=== PATIENT | male | born 1945 | race Caucasian/White ===

== ENCOUNTER → 2016-07-15 | Day surgery (SDC) | payer OTHER ==
[~2016-07-15] VITALS: Ht 182.9 cm; Wt 92.5 kg
[~2016-07-15] MED LIST: ALLO100T PO; ASPI1TAB PO; ASPI81TA13 PO; ATEN100T PO; CIPR500S IV; GLUC1INJ2 SC; GLUC4CHW PO; HYDR25TAB PO; INSUH10VL SC; LEVO500T32 PO; LIDOCAINE 2% INJ 100 MG/5 ML SDV (FOR ANES.) As Ordered ONE; LISI-538 PO; LOSA25TA8 PO; LR 1,000 ML IV SCH; METF500T PO; MIDAZOLAM INJ 2 MG/2 ML VIAL (J2250) As Ordered ONE; MORP2SY IV; NORCO, ANEXSIA 5/325MG TABLET (HYDROcodone/ACETAMINOPHEN) PO PRN; ONDANSETRON 4MG/2ML VIAL (J2405) IV PRN; PERC5TAB6 PO; PROPOFOL 200 MG/20 ML VIAL As Ordered ONE; PROTPAK IV; PYRI200T5 PO; SIMV40TA2 PO; TYLE325T5 PO; VITMTA PO; ZOCO80TA PO; ZOFR4SOL IV; ZOSY1SOL5 IV; ZYLO300T4 PO; [UNRECOGNIZED DRUG - CODE] IV; [UNRECOGNIZED DRUG - OTHER] IV; ceFAZolin 2 GM/D5W 50 ML IV BAG (J0690) As Ordered ONE; fentaNYL 100 MCG/2 ML INJECTION (J3010) As Ordered ONE; fentaNYL 100 MCG/2 ML INJECTION (J3010) IV PRN
--- NOTE | 2016-07-15 10:04 | REP ---
KUB: Single view. HISTORY: Bilateral kidney stones. Comparison KUB study June 22, 2016. FINDINGS: Double pigtail ureteral stent is noted on the right. There are multiple phleboliths in the pelvis bilaterally. There are bilateral intrarenal lower pole calculi with two stones visible in the lower pole region on the left and one on the right. There are also two calculi adjacent to the stent in the region of the renal pelvis on the right. These are in slightly different position relative to the stent but otherwise unchanged. Bowel gas pattern is normal. Psoas margins are intact. IMPRESSION: Bilateral nephrolithiasis. Two calcifications adjacent to the proximal end of the stent on the right. Signed by Randall Vazquez MD 07/15/2016 10:24 A
--- NOTE | 2016-07-15 14:26 | RO ---
DATE OF PROCEDURE: 07/15/2016 PREPROCEDURE DIAGNOSIS: Kidney stones. POSTPROCEDURE DIAGNOSIS: Kidney stones. PROCEDURE: Bilateral extracorporeal shockwave lithotripsy, cystoscopy with removal of right ureteral stent. SURGEON: Dr. Ganesh Ng HOSPITALITY TEAM MEMBER: None. ANESTHESIA: Monitored anesthesia care (MAC). OPERATIVE INDICATIONS: This is a 70-year-old male who was brought to the operating room a little over a month ago for cystoscopy and right ureteroscopy with laser lithotripsy for an obstructing left ureteral stone. A stent was placed at that time. On his preoperative CAT scan, he also had bilateral nonobstructing kidney stones measuring up to about 5 mm in both kidneys. He was brought to the operating room today for shockwave lithotripsy of the stones and to remove the stent. DESCRIPTION OF PROCEDURE: The patient was brought to the operating room and MAC anesthesia was administered. Prophylactic antibiotics were infused. He was then placed in the supine position and was prepped and draped in the usual sterile fashion. The rigid cystoscope was inserted into the urethral meatus and advanced into the bladder. Once within the bladder, the previously placed stent was seen. The stent was then grasped and withdrawn from the right ureter and the bladder intact. After that point, the patient was then positioned for a left sided extracorporeal shockwave lithotripsy first. Fluoroscopy was utilized to monitor the stone position and fragmentation throughout the procedure. Of note, on this side, the patient had two lower pole kidney stones measuring around 5 mm in size. Shockwaves were then delivered to the kidney stones ungated. There were no arrhythmias. The stones did appear to fragment well. After 2500 shocks, the patient was then repositioned for a right sided extracorporeal shockwave lithotripsy. Once again, fluoroscopy was utilized to monitor stone position and fragmentation throughout the procedure. On this side, the patient had two kidney stones also about 5 mm in size within the upper to mid pole calyces. Shockwaves were then delivered to these stones ungated. There were no arrhythmias. The stones also appeared to fragment well on this side. After 2500 shocks, the procedure was concluded. The patient was then awakened from anesthesia and transported to the recovery room in stable condition. ESTIMATED BLOOD LOSS: 0 mL. COMPLICATIONS: None. SPECIMENS: None. PLAN: The patient will be brought back to be seen in the clinic in a few weeks with imaging prior to assess for residual stone burden. [facility] PSYCHIATRIC CENTERShreyas
[2016-07-15 15:22] VITALS: BP 150/70
== END | disposition home or self-care (01) ==
LOC: M SDC 07:14
PROVIDERS: ATTEND Urology
DX: N20.0 Calculus of kidney (principal); E11.9 Type 2 diabetes mellitus without complications; Z79.82 Long term (current) use of aspirin; M10.9 Gout, unspecified; Z87.891 Personal history of nicotine dependence; Z79.899 Other long term (current) drug therapy
CPT/HCPCS: 50590; 52310; 74000; J0690; J2250; J3010

== ENCOUNTER → 2016-08-06 | Outpatient (REF) | payer OTHER ==
[~2016-08-06] MED LIST changes: -LIDOCAINE 2% INJ 100 MG/5 ML SDV (FOR ANES.) As Ordered ONE; -LR 1,000 ML IV SCH; -MIDAZOLAM INJ 2 MG/2 ML VIAL (J2250) As Ordered ONE; -NORCO, ANEXSIA 5/325MG TABLET (HYDROcodone/ACETAMINOPHEN) PO PRN; -ONDANSETRON 4MG/2ML VIAL (J2405) IV PRN; -PROPOFOL 200 MG/20 ML VIAL As Ordered ONE; -ceFAZolin 2 GM/D5W 50 ML IV BAG (J0690) As Ordered ONE; -fentaNYL 100 MCG/2 ML INJECTION (J3010) As Ordered ONE; -fentaNYL 100 MCG/2 ML INJECTION (J3010) IV PRN
== END ==
LOC: M SMT 13:10
PROVIDERS: ATTEND Urology
DX: N20.0 Calculus of kidney (principal)

== ENCOUNTER → 2016-08-09 | Outpatient (CLI) | payer OTHER ==
--- NOTE | 2016-08-09 12:03 | REP ---
Clinical: Nephrolithiasis. Comparison: 07/15/2016. Technique: Single supine view of the abdomen and pelvis. Findings: Previously noted right ureteral stent has been removed. Further evaluation of the urinary tract system is significantly limited due to overlying bowel gas. However, small bilateral intrarenal calculi are suggested measuring up to approximately 4 mm. Calcifications in the pelvis remains stable and compatible with phleboliths. No bowel obstruction. Skeletal structures demonstrate osteopenia and degenerative changes. Impression: Limited examination cannot exclude nonobstructing intrarenal calculi. Signed by Deepak Stallworth MD 08/09/2016 11:55 A
== END ==
LOC: M SMT 10:29
PROVIDERS: ATTEND Urology
DX: R93.5 Abnormal findings on diagnostic imaging of other abdominal regions, including retroperitoneum (principal)

== ENCOUNTER → 2018-09-01 | Outpatient (REF) | payer OTHER ==
[~2018-09-01] MED LIST changes: -ASPI81TA13 PO; +ASPI81TA24 PO; -GLUC4CHW PO; +GLUC4CHW19 PO; +LEVO500T3 PO; -LEVO500T32 PO; +LOSA25TA14 PO; -LOSA25TA8 PO; -METF500T PO; +METF500T13 PO; +PERC5TAB12 PO; -PERC5TAB6 PO; +PYRI1TAB5 PO; -PYRI200T5 PO; -ZYLO300T4 PO; +ZYLO300T6 PO
[2018-09-01 13:10] LABS: APPEARANCE, URINE HAZY (CLEAR); BACTERIA, URINE AUTO 1+ (NEGATIVE); BILIRUBIN, URINE AUTO NEGATIVE (NEGATIVE); BLOOD, URINE BLOOD 3+ (NEGATIVE); CALCIUM OXALATE CRYSTALS SMALL; COLOR, URINE YELLOW (YELLOW); GLUCOSE, URINE (UA) AUTO NEGATIVE (NEGATIVE); KETONE, URINE AUTO NEGATIVE (NEGATIVE); LEUKOCYTE ESTERASE, URINE AUTO TRACE (NEGATIVE); MUCUS, URINE SMALL (NEGATIVE); NITRITE, URINE AUTO NEGATIVE (NEGATIVE); PROTEIN, URINE AUTO NEGATIVE (NEGATIVE); RBC, URINE AUTO TNTC /HPF (0-3); SQUAMOUS EPITHELIAL CELL UR AU 0 /HPF (0-6); WBC, URINE AUTO 7 /HPF (0-3)
== END ==
LOC: M LAB REF 12:16
PROVIDERS: ATTEND Nurse Practitioner Family
DX: R31.9 Hematuria, unspecified (principal)

== ENCOUNTER → 2018-09-22 | Outpatient (REF) | payer OTHER ==
[2018-09-22 13:48] LABS: APPEARANCE, URINE HAZY (CLEAR); BACTERIA, URINE AUTO NEGATIVE (NEGATIVE); BILIRUBIN, URINE AUTO NEGATIVE (NEGATIVE); BLOOD, URINE BLOOD 3+ (NEGATIVE); CALCIUM OXALATE CRYSTALS SMALL; COLOR, URINE YELLOW (YELLOW); GLUCOSE, URINE (UA) AUTO NEGATIVE (NEGATIVE); KETONE, URINE AUTO NEGATIVE (NEGATIVE); LEUKOCYTE ESTERASE, URINE AUTO TRACE (NEGATIVE); MUCUS, URINE SMALL (NEGATIVE); NITRITE, URINE AUTO NEGATIVE (NEGATIVE); PROTEIN, URINE AUTO 1+ mg/dL (NEGATIVE); RBC, URINE AUTO TNTC /HPF (0-3); SPECIFIC GRAVITY URINE AUTO 1.025 (1.002-1.035); SQUAMOUS EPITHELIAL CELL UR AU 0 /HPF (0-6); WBC, URINE AUTO 8 /HPF (0-3)
== END ==
LOC: M SMT 13:06
PROVIDERS: ATTEND Nurse Practitioner Women's Health
DX: N20.0 Calculus of kidney (principal); Z01.818 Encounter for other preprocedural examination

== ENCOUNTER → 2018-10-13 | Outpatient (CLI) | payer OTHER ==
[~2018-10-13] MED LIST changes: -ASPI1TAB PO; +ASPI81TA26 PO; +HYDR-2541 PO; -HYDR25TAB PO; +ROSU40TA3 PO
--- NOTE | 2018-10-13 09:07 | REP ---
Chest x-ray: Two views. History: Preop. Comparison chest x-ray: June 22, 2016. Findings: The lungs are well inflated and free of infiltrate. Pleural angles are sharp. Heart size is normal. The thoracic aorta is calcific and somewhat tortuous. There is linear fibrosis in the left and right base mild in degree unchanged. No new parenchymal opacity is seen. Impression: No active disease. Mild bibasilar linear fibrosis. Electronically Signed by Randall Vazquez MD 10/13/2018 03:09 P
[2018-10-13 09:14] LABS: HEMATOCRIT 42.9 % (42.0-52.0); HEMOGLOBIN 14.4 g/dl (13.5-17.5); MEAN CORPUSCULAR HEMOGLOBIN 30.3 pg (27.0-33.0); MEAN CORPUSCULAR HGB CONC 33.6 g/dl (32.0-36.5); MEAN CORPUSCULAR VOLUME 90.3 fl (80.0-96.0); PLATELET COUNT, AUTOMATED 153 10^3/uL (150-450); RED BLOOD COUNT 4.75 10^6/uL (4.30-6.10); WHITE BLOOD COUNT 8.1 10^3/uL (4.0-10.0)
[2018-10-13 09:23] LABS: CALCIUM LEVEL 9.1 MG/DL (8.8-10.2); CREATININE FOR GFR 1.42 MG/DL (0.70-1.30); GLOMERULAR FILTRATION RATE 51.9 (>42); POTASSIUM SERUM 4.7 MEQ/L (3.5-5.1)
[2018-10-13 09:57] LABS: INR 0.99; PROTHROMBIN TIME 13.2 SECONDS (12.1-14.4)
[2018-10-13 09:58] LABS: PARTIAL THROMBOPLASTIN TIME 30.9 SECONDS (25.4-37.6)
== END ==
LOC: M LAB 08:13
PROVIDERS: ATTEND Nurse Practitioner Women's Health
DX: Z01.818 Encounter for other preprocedural examination (principal); N39.0 Urinary tract infection, site not specified; N20.0 Calculus of kidney; R91.8 Other nonspecific abnormal finding of lung field

== ENCOUNTER 2018-10-23 11:55 | Day surgery (SDC) | payer OTHER ==
[~2018-10-23] VITALS: Ht 182.9 cm; Wt 93.2 kg
[~2018-10-23 11:55] MED LIST changes: +LIDOCAINE 1% MDV 20ML VIAL SQ PRN; +LR 1,000 ML IV ONE
[2018-10-23] MEDS ORDERED: dexameTHASONE 4 MG/ML 1ML VIAL (J1100) As Ordered ONE (19:18)
[2018-10-23] MEDS ORDERED: PROPOFOL 200 MG/20 ML VIAL As Ordered ONE (19:18)
[2018-10-23] MEDS ORDERED: ONDANSETRON 4MG/2ML VIAL (J2405) As Ordered ONE (19:18)
[2018-10-23] MEDS ORDERED: fentaNYL 100 MCG/2 ML INJECTION (J3010) As Ordered ONE (19:19)
[2018-10-23] MEDS ORDERED: LIDOCAINE 2% INJ 100 MG/5 ML SDV (FOR ANES.) As Ordered ONE (19:19)
[2018-10-23] MEDS ORDERED: MIDAZOLAM INJ 2 MG/2 ML VIAL (J2250) As Ordered ONE (19:20)
[2018-10-23] MEDS ORDERED: CONRAY-60 60% 50ML VIAL (Q9961) As Ordered ONE (20:23)
[2018-10-23] MEDS ORDERED: ONDANSETRON 4MG/2ML VIAL (J2405) IV PRN (21:45)
[2018-10-23] MEDS ORDERED: NORCO, ANEXSIA 5/325MG TABLET (HYDROcodone/ACETAMINOPHEN) PO PRN (21:45)
[2018-10-23] MEDS ORDERED: fentaNYL 100 MCG/2 ML INJECTION (J3010) IV PRN (21:45)
[2018-10-23] MEDS ORDERED: LR 1,000 ML IV SCH (21:45)
[2018-10-23] MEDS ORDERED: NORCO, ANEXSIA 5/325MG TABLET (HYDROcodone/ACETAMINOPHEN) As Ordered ONE (22:05)
[2018-10-23 23:00] VITALS: BP 146/71
--- NOTE | 2018-10-24 01:05 | REP ---
Clinical: Obstructive uropathy. Technique: Intraoperative fluoroscopic imaging using portable C-arm technique. Findings: Early contrast images demonstrate mild hydronephrosis. Three images demonstrate the patient to be status post right ureteral stent placement in satisfactory position. Total fluoroscopic time 18 seconds. Impression: Right ureteral stent in satisfactory position. Electronically Signed by Deepak Stallworth MD 10/24/2018 12:57 A
--- NOTE | 2018-10-24 20:37 | RO ---
DATE OF PROCEDURE: 10/23/2018 PREPROCEDURE DIAGNOSIS: Right kidney stone. POSTPROCEDURE DIAGNOSIS: Right kidney stone. PROCEDURE: Cystoscopy, right ureteroscopy with laser lithotripsy and basket extraction of stones, right retrograde pyelogram with intraoperative interpretation of images, right ureteral stent placement. SURGEON: Dr. Ganesh Ng ALUMNI COORDINATOR: None. ANESTHESIA: General. OPERATIVE INDICATIONS: This is a 73-year-old male who on recent CAT scan was found to have a 6 or 7 mm obstructing right ureteropelvic junction stone. He was brought to the operating room today for treatment. DESCRIPTION OF PROCEDURE: The patient was brought to the operating room and general anesthesia was induced. Prophylactic antibiotics were infused. He was then placed in the dorsal lithotomy position and prepped and draped in the usual sterile fashion. A rigid cystoscope was then inserted into the urethral meatus and advanced to the bladder. A guidewire was advanced up the right collecting system. A ureteral access sheath was advanced over the wire into the right collecting system. I then went up the access sheath with a flexible ureteroscope, and at the level of ureteropelvic junction, there was a 6-7 mm stone seen. The stone was fragmented into several smaller pieces using 200 micron laser fiber. All the fragments were then removed using a basket. Of note, the patient had moderately narrow midureter and while removing the stone and trying to get the access sheath up, there was some minor trauma to the ureter. Once done removing all the stones, the kidney was thoroughly examined and no remaining stone fragments were seen. A retrograde pyelogram was performed, and was notable for moderate right hydronephrosis with no extravasation. I then withdrew the ureteroscope along with the access sheath and no additional stones were seen within the ureter. I then utilized the wire to advance a 6-[place] x 22-32 cm JJ ureteral stent up to the right collecting system. The wire was then removed, and there were adequate curls of the stent in the right renal pelvis and in the bladder. The bladder was then emptied of all fluids and this marked the conclusion of the procedure. The patient was then taken out of the dorsal lithotomy position, awakened from anesthesia and transported to the recovery room in stable condition. Estimated blood loss: 10 mL. Complications: None. Specimens: Kidney stone fragments. PLAN: I will keep the patient's stent in place for approximately 4 weeks given the trauma trying to remove the stone fragments. I will likely get a renal ultrasound a month or two after his stent is removed. GARRY
[2018-10-30 10:12] LABS: COMMENT Note: (.); Ca Ox Monohydrate 92 % (.)
== END 2018-10-23 23:00 | disposition home or self-care (01) ==
LOC: M SDC 11:55
PROVIDERS: ATTEND Urology
DX: N20.0 Calculus of kidney (principal); I10 Essential (primary) hypertension; E78.5 Hyperlipidemia, unspecified; E11.9 Type 2 diabetes mellitus without complications; M10.9 Gout, unspecified; Z79.82 Long term (current) use of aspirin; Z79.899 Other long term (current) drug therapy
CPT/HCPCS: 52356; 74420; 82360; 88300; C1769; C2617; J0690; J1100; J2250; J2405; J3010; Q9961

== ENCOUNTER → 2018-11-01 | Outpatient (CLI) | payer OTHER ==
[~2018-11-01] MED LIST changes: -LIDOCAINE 1% MDV 20ML VIAL SQ PRN; -LR 1,000 ML IV ONE
--- NOTE | 2018-11-02 04:20 | REP ---
Clinical: Lower back pain. Technique: AP, lateral, bilateral oblique and coned-down views of the lumbosacral spine. Comparison: 12/23/2010 Findings: Diffuse age related osteopenia and moderate/advanced multilevel degenerative changes include endplate sclerosis, disc space narrowing, hypertrophic facet changes and osteophytosis. No acute fracture / compression injury or subluxation. Impression: Moderate to advanced multilevel degenerative spondylosis. Right ureteral stent. Electronically Signed by Deepak Stallworth MD 11/02/2018 04:12 A
== END ==
LOC: M ADAMS 14:50
PROVIDERS: ATTEND Physician Assistant Medical
DX: M25.78 Osteophyte, vertebrae (principal); M47.899 Other spondylosis, site unspecified

== ENCOUNTER 2018-11-29 12:52 | Day surgery (SDC) | payer OTHER ==
[~2018-11-29] VITALS: Ht 182.9 cm; Wt 86.6 kg
[~2018-11-29 12:52] MED LIST changes: +GABA-843 PO; +NS 1,000 ML IV ONE; +PROPOFOL 200 MG/20 ML VIAL As Ordered ONE
--- NOTE | 2018-11-29 13:53 | ROOR ---
Patient Name: Ravin Jama Procedure Date: 11/29/2018 1:19 PM Date of : 1945 Age: 73 Room: [facility] Gender: Male Note Status: Finalized Procedure: Total Colonoscopy to Cecum Indications: Positive Cologuard test Providers: Seth Wylie MD Referring MD: Elie Caban NP Requesting Provider: Medicines: Monitored Anesthesia Care Complications: No immediate complications. Procedure: Pre-Anesthesia Assessment: - The heart rate, respiratory rate, oxygen saturations, blood pressure, adequacy of pulmonary ventilation, and response to care were monitored throughout the procedure. The Colonoscope was introduced through the anus and advanced to the cecum, identified by appendiceal orifice and ileocecal valve. The colonoscopy was performed without difficulty. The patient tolerated the procedure well. The quality of the bowel preparation was excellent. Findings: The perianal and digital rectal examinations were normal. Non-bleeding internal hemorrhoids were found during retroflexion. The hemorrhoids were small and Grade I (internal hemorrhoids that do not prolapse). Multiple small and large-mouthed diverticula were found in the recto-sigmoid colon, sigmoid colon and descending colon. The exam was otherwise without abnormality on direct and retroflexion views. Impression: - Non-bleeding internal hemorrhoids. - Diverticulosis in the recto-sigmoid colon, in the sigmoid colon and in the descending colon. - The examination was otherwise normal on direct and retroflexion views. - No specimens collected. - The exam was otherwise normal to the cecum. Recommendation: - Patient has a contact number available for emergencies. The signs and symptoms of potential delayed complications were discussed with the patient. Return to normal activities tomorrow. Written discharge instructions were provided to the patient. - High fiber diet. - Discharge patient to home. - Continue present medications. - Repeat colonoscopy for symptoms only. - Return to referring physician. - The findings and recommendations were discussed with the patient's family. Seth Wylie MD Seth Wylie MD 11/29/2018 1:52:35 PM Electronically signed by Seth Wylie MD Number of Addenda: 0 Note Initiated On: 11/29/2018 1:19 PM Estimated Blood Loss: Estimated blood loss: none.
[2018-11-29 14:10] VITALS: BP 149/94
== END 2018-11-29 14:17 | disposition home or self-care (01) ==
LOC: M OPP 12:52
PROVIDERS: ATTEND Internal Medicine Gastroenterology
DX: K64.0 First degree hemorrhoids (principal); K57.30 Diverticulosis of large intestine without perforation or abscess without bleeding; R19.5 Other fecal abnormalities

== ENCOUNTER → 2019-01-02 | Outpatient (CLI) | payer MEDICARE, OTHER ==
[~2019-01-02] MED LIST changes: -NS 1,000 ML IV ONE; -PROPOFOL 200 MG/20 ML VIAL As Ordered ONE; -ROSU40TA3 PO; +ROSU40TA4 PO
--- NOTE | 2019-01-02 22:37 | REP ---
Clinical: Ureteral stricture. Technique: Real time ding scale and color evaluation using curved array transducer. Comparison: 03/12/2015. Findings: Right kidney measures 11.4 x 5.3 x 6.0 cm with hyperemic parenchyma and moderate hydronephrosis/proximal hydroureter possibly related to the patient's given history of stricture. No right-sided nephrolithiasis, cystic or mass lesion identified. Left kidney measures 11.6 x 4.8 x 5.8 cm with hyperemic parenchyma as well as 1.1 cm and 1.0 cm upper pole cortical cysts. No left-sided nephrolithiasis or mass lesion. Impression: 1. Moderate right-sided hydronephrosis possibly related to the given history of structure. 2. Medical renal disease. 3. Small left renal cysts. Electronically Signed by Deepak Stallworth MD 01/02/2019 10:29 P
== END ==
LOC: M RAD 14:16
PROVIDERS: ATTEND Urology
DX: N20.1 Calculus of ureter (principal)

== ENCOUNTER → 2019-01-23 | Outpatient (CLI) | payer MEDICARE, OTHER ==
[~2019-01-23] MED LIST changes: +FLOM0.4C39 PO
[2019-01-23 14:35] LABS: CREATININE FOR GFR 1.56 MG/DL (0.70-1.30); GLOMERULAR FILTRATION RATE 46.5 (>42); POTASSIUM SERUM 4.4 MEQ/L (3.5-5.1)
== END ==
LOC: M SMT 10:26
PROVIDERS: ATTEND Nurse Practitioner Women's Health
DX: N13.1 Hydronephrosis with ureteral stricture, not elsewhere classified (principal)
CPT/HCPCS: 36415; 80048; G0463

== ENCOUNTER → 2019-01-30 | Outpatient (CLI) | payer MEDICARE, OTHER ==
[~2019-01-30] MED LIST changes: +ISOVUE-370 76% 100ML VIAL (Q9967) As Ordered ONE
--- NOTE | 2019-01-30 14:15 | REP ---
REASON: History of hydronephrosis. COMPARISON: 09/20/2018. There is no change in the lung bases. CONTRAST: 100 mL Isovue 370. In the distal right ureter there is an 8 mm sized calcification which is resulting in right sided hydronephrosis and hydroureter proximal to the finding. There is no left sided hydronephrosis or hydroureter. There are three calcifications in the left kidney which are unchanged. The calcifications seen previously in the right renal pelvis is no longer present. There are no urinary bladder calcifications. There are bilateral pelvic phleboliths status quo. There is a slightly hyperdense cyst arising from the inferior pole of the left kidney seen in conjunction with a smaller cyst. Tiny renal cortical cysts are seen on the right. These were not imaged on the prior noncontrast enhanced exam to the extent of where they are imaged today. There are hepatic cysts. There are no enhancing hepatic lesions. The spleen and pancreas are within normal limits. The adrenal glands are within normal limits. The abdominal aorta and paraaortic regions are within normal limits. There is no evidence of free fluid or free air. The bowel loops and their mesenteries are within normal limits. CT PELVIS: The bowel loops and their mesenteries are within normal limits. There is no free fluid or free air. There is mild corpora amylacea. There is a large inguinal hernia on the left status quo. Delayed imaging through the abdomen and pelvis does show less than complete obstruction of the right renal collecting system. The partially opacified urinary bladder shows no evidence of a gross mass. IMPRESSION: The lateral renal findings as described above. The calcifications seen previously in the right renal pelvis on the prior examination of 09/20/2018 now is seen in the distal right ureter. Other nonacute findings as described above. Electronically Signed by Roddy Hernandez DO 01/30/2019 04:13 P
== END ==
LOC: M RAD 09:56
PROVIDERS: ATTEND Nurse Practitioner Women's Health
DX: N13.1 Hydronephrosis with ureteral stricture, not elsewhere classified (principal)
CPT/HCPCS: 74178; Q9967

== ENCOUNTER → 2019-02-05 | Outpatient (REF) | payer MEDICARE, OTHER ==
[~2019-02-05] MED LIST changes: -ISOVUE-370 76% 100ML VIAL (Q9967) As Ordered ONE
[2019-02-05 19:40] LABS: HEMATOCRIT 39.9 % (42.0-52.0); HEMOGLOBIN 13.2 g/dl (13.5-17.5); MEAN CORPUSCULAR HEMOGLOBIN 30.3 pg (27.0-33.0); MEAN CORPUSCULAR HGB CONC 33.1 g/dl (32.0-36.5); MEAN CORPUSCULAR VOLUME 91.7 fl (80.0-96.0); PLATELET COUNT, AUTOMATED 145 10^3/uL (150-450); RED BLOOD COUNT 4.35 10^6/uL (4.30-6.10); WHITE BLOOD COUNT 8.2 10^3/uL (4.0-10.0)
[2019-02-05 19:43] LABS: APPEARANCE, URINE HAZY (CLEAR); BACTERIA, URINE AUTO NEGATIVE (NEGATIVE); BILIRUBIN, URINE AUTO NEGATIVE (NEGATIVE); BLOOD, URINE BLOOD NEGATIVE (NEGATIVE); COLOR, URINE YELLOW (YELLOW); GLUCOSE, URINE (UA) AUTO NEGATIVE (NEGATIVE); KETONE, URINE AUTO NEGATIVE (NEGATIVE); LEUKOCYTE ESTERASE, URINE AUTO TRACE (NEGATIVE); MUCUS, URINE SMALL (NEGATIVE); NITRITE, URINE AUTO NEGATIVE (NEGATIVE); PROTEIN, URINE AUTO NEGATIVE (NEGATIVE); RBC, URINE AUTO 3 /HPF (0-3); SPECIFIC GRAVITY URINE AUTO 1.013 (1.002-1.035); SQUAMOUS EPITHELIAL CELL UR AU 0 /HPF (0-6); UROBILINOGEN, URINE AUTO 0.2 mg/dL (0.0-2.0); WBC, URINE AUTO 4 /HPF (0-3)
[2019-02-05 19:52] LABS: INR 1.03; PROTHROMBIN TIME 13.2 SECONDS (11.8-14.0)
[2019-02-05 19:53] LABS: PARTIAL THROMBOPLASTIN TIME 31.1 SECONDS (25.0-38.4)
== END ==
LOC: M LABSMT 13:02
PROVIDERS: ATTEND Nurse Practitioner Family
DX: Z01.818 Encounter for other preprocedural examination (principal); N20.0 Calculus of kidney; Z79.01 Long term (current) use of anticoagulants

== ENCOUNTER → 2019-02-06 | Outpatient (REF) | payer MEDICARE, OTHER ==
[2019-02-06 17:22] LABS: CALCIUM LEVEL 9.5 MG/DL (8.8-10.2); CREATININE FOR GFR 1.47 MG/DL (0.70-1.30); GLOMERULAR FILTRATION RATE 49.9 (>42)
== END ==
LOC: M SMT 16:14
PROVIDERS: ATTEND Nurse Practitioner Family
DX: N20.0 Calculus of kidney (principal)

== ENCOUNTER 2019-02-08 08:17 | Day surgery (SDC) | payer MEDICARE, OTHER ==
[~2019-02-08] VITALS: Ht 182.9 cm; Wt 92.5 kg
[~2019-02-08 08:17] MED LIST changes: +CONRAY-60 60% 50ML VIAL (Q9961) As Ordered ONE; +LIDOCAINE 1% MDV 20ML VIAL SQ PRN; +LR 1,000 ML IV ONE
[2019-02-08] MEDS ORDERED: dexameTHASONE 4 MG/ML 1ML VIAL (J1100) As Ordered ONE (09:38)
[2019-02-08] MEDS ORDERED: LIDOCAINE 2% INJ 100 MG/5 ML SDV (FOR ANES.) As Ordered ONE (09:38)
[2019-02-08] MEDS ORDERED: PROPOFOL 200 MG/20 ML VIAL As Ordered ONE (09:38)
[2019-02-08] MEDS ORDERED: ONDANSETRON 4MG/2ML VIAL (J2405) As Ordered ONE (09:38)
[2019-02-08] MEDS ORDERED: fentaNYL 100 MCG/2 ML INJECTION (J3010) As Ordered ONE (10:17)
[2019-02-08] MEDS ORDERED: ONDANSETRON 4MG/2ML VIAL (J2405) IV PRN (12:00)
[2019-02-08] MEDS ORDERED: LR 1,000 ML IV SCH (12:00)
[2019-02-08] MEDS ORDERED: MORPHINE 10 MG/ML 1ML VIAL (J2270) IV PRN (12:00)
[2019-02-08] MEDS ORDERED: fentaNYL 100 MCG/2 ML INJECTION (J3010) IV PRN (12:00)
[2019-02-08] MEDS ORDERED: PERCOCET 5MG/325MG TAB PO PRN ×2 (12:00)
--- NOTE | 2019-02-08 12:41 | REP ---
RETROGRADE PYELOGRAM: Four views. HISTORY: Cysto right ureteroscopy. FINDINGS: A sequence of four last image hold fluoroscopically obtained spot radiographs of the abdomen document ureteral cannulation, contrast injection, hydronephrosis, and ureteral stent placement. No laterality markers are visible. 24 seconds of fluoroscopy time is reported. Electronically Signed by Randall Vazquez MD 02/08/2019 05:30 P
[2019-02-08 12:52] VITALS: BP 160/86
--- NOTE | 2019-02-12 12:08 | RO ---
DATE OF PROCEDURE: 02/08/2019 PREPROCEDURE DIAGNOSIS: Right ureteral stone. POSTPROCEDURE DIAGNOSIS: Right ureteral stone. PROCEDURE: Cystoscopy, right ureteroscopy with laser lithotripsy and basket extraction of stones, right retrograde pyelogram with intraoperative interpretation of images, right ureteral stent placement. SURGEON: Ganesh Ng MD DENTAL TECHNICIAN INSTRUCTOR: None. ANESTHESIA: General. OPERATIVE INDICATIONS: This is a 73-year-old male who was found to have an obstructing 8 mm distal right ureteral stone on recent CAT scan. He was brought to the operating room today for the above-listed treatment. DESCRIPTION OF PROCEDURE: The patient was brought to the operating room and general anesthesia was induced. Prophylactic antibiotics were infused. He was then placed in dorsal lithotomy position and prepped and draped in the usual sterile fashion. A rigid cystoscope was inserted into the urethral meatus and advanced into the bladder. A guidewire was advanced up the right collecting system. I then went up the right collecting system with a short semi rigid ureteroscope and within the distal ureter of note there was an impacted 8 mm stone. There was a lot of edema around the stone. The stone was then fragment into smaller pieces using a 200 micron laser fiber. Then, the fragments were removed using a basket. There were no stones seen in the more proximal ureter. A retrograde pyelogram was performed and noted for moderate to severe right ureterohydronephrosis. No extravasation. At this point, I withdrew the ureteroscope and then utilized a wire to advance a 6 [place] x 22-32 cm JJ ureteral stent up into the right collecting system. The wire was then removed and there were adequate curls of the stent in the right renal pelvis and in the bladder. The bladder was emptied of all fluids and this marked the conclusion of the procedure. The patient was then taken out of dorsal lithotomy position, awakened from anesthesia and transported to the recovery room in stable condition. ESTIMATED BLOOD LOSS: 5 mL. COMPLICATIONS: None. SPECIMENS: Kidney stone fragments. PLAN: Concern of amount of edema in the distal ureter from the impacted stone. I will leave the stent in 4 weeks. We will have him followup in 4 weeks for stent removal. GARRY
[2019-02-15 10:06] LABS: Ca Ox Monohydrate 92 % (.)
== END 2019-02-08 12:55 | disposition home or self-care (01) ==
LOC: M SDC 08:17
PROVIDERS: ATTEND Urology
DX: N20.0 Calculus of kidney (principal); N20.1 Calculus of ureter; I10 Essential (primary) hypertension; E78.5 Hyperlipidemia, unspecified; M10.9 Gout, unspecified; Z79.899 Other long term (current) drug therapy; E11.9 Type 2 diabetes mellitus without complications; Z79.82 Long term (current) use of aspirin; Z79.84 Long term (current) use of oral hypoglycemic drugs; Z87.891 Personal history of nicotine dependence
CPT/HCPCS: 52356; 74420; 82360; 88300; C1769; C2617; J0690; J1100; J2405; J3010; Q9961

== ENCOUNTER 2019-03-15 19:15 | Emergency (ER) | payer MEDICARE, OTHER ==
[~2019-03-15] VITALS: Ht 182.9 cm; Wt 90.9 kg
[~2019-03-15 19:15] MED LIST changes: -CONRAY-60 60% 50ML VIAL (Q9961) As Ordered ONE; -LIDOCAINE 1% MDV 20ML VIAL SQ PRN; -LR 1,000 ML IV ONE
[2019-03-15 20:48] LABS: HEMATOCRIT 41.5 % (42.0-52.0); MEAN CORPUSCULAR HEMOGLOBIN 30.3 pg (27.0-33.0); MEAN CORPUSCULAR HGB CONC 33.7 g/dl (32.0-36.5); MEAN CORPUSCULAR VOLUME 89.8 fl (80.0-96.0); PLATELET COUNT, AUTOMATED 148 10^3/uL (150-450); RED BLOOD COUNT 4.62 10^6/uL (4.30-6.10); WHITE BLOOD COUNT 11.1 10^3/uL (4.0-10.0)
--- NOTE | 2019-03-15 21:38 | REPVR ---
PROCEDURE INFORMATION: Exam: US Scrotum and US Duplex Artery and Vein, Scrotum, Complete Exam date and time: 03/15/2019 9:09 PM Clinical history: 73 years old, male; Groin pain and scrotum pain; Additional info: Left testicular pain, swelling, known hernia TECHNIQUE: Imaging protocol: Real-time ultrasound of the scrotum. Real-time duplex ultrasound scan of the arterial and venous flow of the scrotum with B-mode, color Doppler flow and spectral waveform analysis. Complete exam. Duplex images required to evaluate vascular conditions. COMPARISON: No relevant prior studies available. FINDINGS: Right Testicle: The right testis measures 3.8 x 1.7 x 2.3 cm. Normal echogenicity. Normal arterial waveforms on color spectral Doppler analysis. Left Testicle: The left testis measures 3.1 x 2.4 x 3 cm. Normal arterial waveforms on color spectral Doppler analysis. Approximately 1 cm anechoic intratesticular cyst. Left inguinal hernia, resulting in more inferior location of left testis. Epididymides: 0.5 cm left epididymal head cyst. Scrotum: Small left-sided hydrocele. IMPRESSION: 1. Left inguinal hernia, resulting in more inferior location of left testis. No evidence of testicular torsion. 2. Approximately 1 cm anechoic left intratesticular cyst. Recommend followup testicular ultrasound in 1-3 months for stability. 3. 0.5 cm left epididymal head cyst. 4. Small left-sided hydrocele. Electronically signed by: Ketan Cazares On 03/15/2019 21:37:51 PM
--- NOTE | 2019-03-15 21:41 | REPVR ---
PROCEDURE INFORMATION: Exam: US Pelvis Limited, Male Exam date and time: 03/15/2019 9:09 PM Clinical history: 73 years old, male; Pain; Other: Groin; Additional info: Left groin pain, known hernia TECHNIQUE: Imaging protocol: Real-time pelvic ultrasound with image documentation. COMPARISON: No relevant prior studies available. FINDINGS: Grayscale and color Doppler ultrasound of the bilateral inguinal canals demonstrating a left-sided inguinal hernia containing both bowel and fat. No pathologically enlarged lymph nodes. No fluid collection. Hernia unable to be reduced. IMPRESSION: Left-sided bowel and fat-containing inguinal hernia. Hernia unable to be reduced during examination. Electronically signed by: Ketan Cazares On 03/15/2019 21:40:32 PM
[2019-03-15 22:32] VITALS: BP 171/83
--- NOTE | 2019-03-16 12:52 | ED PDOC ---
Post-Departure Follow-Up scrotal us faxed to neil cruz, apryl for fu Luiza Riojas MD Mar 16, 2019 12:52
== END 2019-03-15 22:37 | disposition home or self-care (01) ==
LOC: M ED 19:15
DX: N44.2 Benign cyst of testis (principal); N43.3 Hydrocele, unspecified; E11.65 Type 2 diabetes mellitus with hyperglycemia; Z79.84 Long term (current) use of oral hypoglycemic drugs; E78.5 Hyperlipidemia, unspecified; N20.0 Calculus of kidney; K80.20 Calculus of gallbladder without cholecystitis without obstruction; M10.9 Gout, unspecified; K57.30 Diverticulosis of large intestine without perforation or abscess without bleeding; Z96.0 Presence of urogenital implants; K44.9 Diaphragmatic hernia without obstruction or gangrene; Z79.899 Other long term (current) drug therapy

== ENCOUNTER 2019-03-22 08:36 | Day surgery (SDC) | payer MEDICARE, OTHER ==
[~2019-03-22] VITALS: Ht 182.9 cm; Wt 90.2 kg
[~2019-03-22 08:36] MED LIST changes: +LR 1,000 ML IV ONE; +ceFAZolin SOD 2 GM in IV 1 EA IV ONE
[2019-03-22] MEDS ORDERED: BUPIVACAINE/EPIN 0.25% 30 ML VIAL ONE (08:37)
[2019-03-22 09:11] LABS: HEMATOCRIT 41.6 % (42.0-52.0); MEAN CORPUSCULAR HEMOGLOBIN 30.5 pg (27.0-33.0); MEAN CORPUSCULAR HGB CONC 33.7 g/dl (32.0-36.5); MEAN CORPUSCULAR VOLUME 90.6 fl (80.0-96.0); PLATELET COUNT, AUTOMATED 156 10^3/uL (150-450); RED BLOOD COUNT 4.59 10^6/uL (4.30-6.10); WHITE BLOOD COUNT 9.3 10^3/uL (4.0-10.0)
[2019-03-22] MEDS ORDERED: KETOROLAC 60 MG/2 ML VIAL (J1885) As Ordered ONE (09:11)
[2019-03-22] MEDS ORDERED: SUGAMMADEX SODIUM 500 MG/5 ML VIAL (BRIDION) As Ordered ONE (09:11)
[2019-03-22] MEDS ORDERED: PROPOFOL 200 MG/20 ML VIAL As Ordered ONE (09:11)
[2019-03-22] MEDS ORDERED: ONDANSETRON 4MG/2ML VIAL (J2405) As Ordered ONE (09:11)
[2019-03-22] MEDS ORDERED: ROCURONIUM BROMIDE 50 MG/5 ML VIAL As Ordered ONE (09:11)
[2019-03-22] MEDS ORDERED: fentaNYL 250 MCG/5 ML INJECTION (J3010) As Ordered ONE (09:11)
[2019-03-22] MEDS ORDERED: dexameTHASONE 4 MG/ML 1ML VIAL (J1100) As Ordered ONE (09:11)
[2019-03-22] MEDS ORDERED: LIDOCAINE 2% INJ 100 MG/5 ML SDV (FOR ANES.) As Ordered ONE (09:11)
[2019-03-22] MEDS ORDERED: MIDAZOLAM INJ 2 MG/2 ML VIAL (J2250) As Ordered ONE (09:12)
[2019-03-22 09:30] LABS: CALCIUM LEVEL 9.4 MG/DL (8.8-10.2); CREATININE FOR GFR 1.61 MG/DL (0.70-1.30); GLOMERULAR FILTRATION RATE 44.9 (>42); POTASSIUM SERUM 4.1 MEQ/L (3.5-5.1)
[2019-03-22] MEDS ORDERED: LIDOCAINE 1% SDV INJ 30 ML VIAL As Ordered ONE (09:58)
[2019-03-22] MEDS ORDERED: BUPIVACAINE HCL 0.25% 30 ML VIAL As Ordered ONE (09:58)
[2019-03-22] MEDS ORDERED: NORC1TAB7 PO (10:39)
[2019-03-22] MEDS ORDERED: BUPIVACAINE LIPOSOME/PF 1.3% 20ML VIAL (13.3MG/ML)(EXPAREL)(C9290 PER1MG) As Ordered ONE (10:58)
[2019-03-22] MEDS ORDERED: fentaNYL 100 MCG/2 ML INJECTION (J3010) IV PRN (14:30)
[2019-03-22] MEDS ORDERED: ONDANSETRON 4MG/2ML VIAL (J2405) IV PRN ×2 (14:30→15:31)
[2019-03-22] MEDS ORDERED: METOCLOPRAMIDE INJ 10MG/2ML VIAL (J2765) IV PRN (14:30)
[2019-03-22] MEDS ORDERED: LR 1,000 ML IV SCH (14:30)
[2019-03-22] MEDS ORDERED: oxyCODONE 5MG TAB PO PRN (14:30)
[2019-03-22] MEDS ORDERED: NORCO, ANEXSIA 5/325MG TABLET (HYDROcodone/ACETAMINOPHEN) PO PRN ×2 (15:31)
[2019-03-22 16:05] VITALS: BP 166/85
[2019-03-22] MEDS ORDERED: KETOROLAC 30 MG/ML VIAL (J1885) IV PRN (19:30)
== END 2019-03-22 16:20 | disposition home or self-care (01) ==
LOC: M SDC 08:36
PROVIDERS: ATTEND Surgery
DX: K40.90 Unilateral inguinal hernia, without obstruction or gangrene, not specified as recurrent (principal); I10 Essential (primary) hypertension; E11.9 Type 2 diabetes mellitus without complications; E78.49 Other hyperlipidemia; M10.9 Gout, unspecified; Z79.82 Long term (current) use of aspirin; Z79.84 Long term (current) use of oral hypoglycemic drugs
CPT/HCPCS: 36415; 49650; 80048; 85027; 88304; C1781; C9290; J0690; J1100; J1885; J2250; J2405; J3010

== ENCOUNTER 2019-08-07 12:36 | Emergency (ER) | payer MEDICARE, OTHER ==
[~2019-08-07] VITALS: Ht 182.9 cm; Wt 93.7 kg
[~2019-08-07 12:36] MED LIST changes: -LR 1,000 ML IV ONE; +MORP2CAR IV; -MORP2SY IV; +NORC1TAB7 PO; -SIMV40TA2 PO; +SIMV40TA20 PO; -ceFAZolin SOD 2 GM in IV 1 EA IV ONE
--- NOTE | 2019-08-07 13:58 | REP ---
Clinical: Hematuria and groin pain. Technique: Axial noncontrast images from the lung bases to the pubic symphysis with coronal and sagittal re-formations. Findings: Acute left-sided obstructive uropathy with hydroureteronephrosis, and inflammatory stranding with a 5 mm obstructing calculus in the distal left ureter (images 129 - 130). Two nonobstructing left renal calculi are also identified measuring up to 6 mm. Right kidney demonstrates few small nonobstructing calculi up to 2.5 mm. Bladder is unremarkable. Hepatosplenomegaly suggested. Pancreas and bilateral adrenal glands are normal. Evidence of prior cholecystectomy. The enteric system is without obstruction or acute inflammatory process. Diffuse diverticulosis noted without acute diverticulitis. Fat containing left inguinal hernia appreciated. Pelvis demonstrates a gallbladder and prostatomegaly with the prostate gland measuring greater than 5.4 cm transverse diameter. No ascites. No free air. No adenopathy. Abdominal aorta without aneurysm. Musculoskeletal structures demonstrate degenerative changes. Lung bases demonstrate chronic scarring. Impression: 1. Acute left-sided obstructive uropathy with a 5 mm calculus in the distal left ureter approximately 4 cm proximal to the ureterovesical junction. Bilateral nonobstructing renal calculi noted. 2. Hepatosplenomegaly. 3. Diverticulosis. 4. Prostatomegaly. Electronically Signed by Deepak Stallworth MD 08/07/2019 01:48 P
[2019-08-07] MEDS ORDERED: ACETAMINOPHEN 325 MG TAB PO ONE (16:00)
[2019-08-07] MEDS ORDERED: NS 1,000 ML IV ONE (16:00)
[2019-08-07] MEDS ORDERED: TAMSULOSIN 0.4 MG CAP PO ONE (16:00)
[2019-08-07 16:09] LABS: HEMOGLOBIN 14.4 g/dl (13.5-17.5); MEAN CORPUSCULAR HEMOGLOBIN 29.6 pg (27.0-33.0); MEAN CORPUSCULAR HGB CONC 32.7 g/dl (32.0-36.5); MEAN CORPUSCULAR VOLUME 90.5 fl (80.0-96.0); PLATELET COUNT, AUTOMATED 142 10^3/uL (150-450); RED BLOOD COUNT 4.86 10^6/uL (4.30-6.10); WHITE BLOOD COUNT 11.2 10^3/uL (4.0-10.0)
[2019-08-07 17:00] VITALS: BP 140/65
[2019-08-07] MEDS ORDERED: FLOM0.4C39 PO (17:40)
[2019-08-07] MEDS ORDERED: NORC1TAB7 PO (17:40)
--- NOTE | 2019-08-09 19:21 | ED PDOC ---
Post-Departure Follow-Up dr castellon faxed formal report of ct abd.p for fu Luiza Riojas MD Aug 09, 2019 19:21
== END 2019-08-07 17:54 | disposition home or self-care (01) ==
LOC: M ED 12:36
DX: N13.1 Hydronephrosis with ureteral stricture, not elsewhere classified (principal); N20.0 Calculus of kidney; M10.9 Gout, unspecified; R16.2 Hepatomegaly with splenomegaly, not elsewhere classified; K57.32 Diverticulitis of large intestine without perforation or abscess without bleeding; N40.0 Benign prostatic hyperplasia without lower urinary tract symptoms; E11.9 Type 2 diabetes mellitus without complications; I10 Essential (primary) hypertension; E78.5 Hyperlipidemia, unspecified; Z79.82 Long term (current) use of aspirin; Z79.84 Long term (current) use of oral hypoglycemic drugs; Z79.899 Other long term (current) drug therapy

== ENCOUNTER → 2019-08-10 | Outpatient (REF) | payer MEDICARE, OTHER | LOC: M SMT 13:44 | PROVIDERS: ATTEND Nurse Practitioner Women's Health | DX: N20.0 Calculus of kidney (principal) ==

== ENCOUNTER → 2019-08-10 | Outpatient (CLI) | payer MEDICARE, OTHER ==
--- NOTE | 2019-08-10 09:34 | REP ---
Clinical: Kidney stone. Technique: Two supine views of the abdomen and pelvis. Findings: Two 5 mm calculi presumed to be in the left kidney. Further evaluation is significantly limited due to overlying bowel gas and technique. Calcifications in the pelvis likely represent phleboliths. Moderate to significant fecal stasis is suggested without bowel obstruction or obvious perforation. Skeletal structures demonstrate age-related degenerative changes. Impression: Two 5 mm nonobstructing left intrarenal calculi are suspected. Electronically Signed by Deepak Stallworth MD 08/10/2019 09:25 A
== END ==
LOC: M ADAMS 09:05
PROVIDERS: ATTEND Nurse Practitioner Women's Health
DX: N20.0 Calculus of kidney (principal)
CPT/HCPCS: 74018; 82365; G0463

== ENCOUNTER → 2019-08-16 | Outpatient (REF) | payer MEDICARE, OTHER ==
[2019-08-16 14:13] LABS: HEMATOCRIT 43.1 % (42.0-52.0); MEAN CORPUSCULAR HEMOGLOBIN 29.7 pg (27.0-33.0); MEAN CORPUSCULAR HGB CONC 32.5 g/dl (32.0-36.5); MEAN CORPUSCULAR VOLUME 91.5 fl (80.0-96.0); PLATELET COUNT, AUTOMATED 153 10^3/uL (150-450); RED BLOOD COUNT 4.71 10^6/uL (4.30-6.10); WHITE BLOOD COUNT 7.5 10^3/uL (4.0-10.0)
[2019-08-16 14:26] LABS: CALCIUM LEVEL 9.7 MG/DL (8.8-10.2); CREATININE FOR GFR 1.39 MG/DL (0.70-1.30); POTASSIUM SERUM 4.3 MEQ/L (3.5-5.1)
[2019-08-16 14:47] LABS: INR 1.04; PROTHROMBIN TIME 13.3 SECONDS (11.8-14.0)
[2019-08-16 14:48] LABS: PARTIAL THROMBOPLASTIN TIME 30.6 SECONDS (25.0-38.4)
== END ==
LOC: M SMT 12:37
PROVIDERS: ATTEND Nurse Practitioner Women's Health
DX: Z01.818 Encounter for other preprocedural examination (principal); N20.0 Calculus of kidney

== ENCOUNTER 2019-09-06 06:01 | Day surgery (SDC) | payer MEDICARE, OTHER ==
[~2019-09-06] VITALS: Ht 182.9 cm; Wt 93.6 kg
[~2019-09-06 06:01] MED LIST changes: +LR 1,000 ML IV ONE; +ceFAZolin SOD 2 GM in IV 1 EA IV ONE
--- NOTE | 2019-09-06 07:52 | REP ---
Supine abdomen single AP view for renal calculi: Comparison is the abdomen/pelvis CT dated 08/07/2019. There are two calcifications projected over the lower pole left kidney, similar to calcifications in this location on the comparison CT. There are left renal calculus and of the right renal calculi identified by CT are not visible on the plain film study today. The distal left ureteral calculus on the comparison CT is superimposed by multiple phleboliths in the pelvis on the left. Additionally there are multiple phleboliths in the pelvis on the right. The bowel gas pattern is normal. Skeletal structures are unremarkable. Electronically Signed by Rogers Ortiz MD 09/06/2019 07:43 A
[2019-09-06] MEDS ORDERED: ONDANSETRON 4MG/2ML VIAL (J2405) As Ordered ONE (08:42)
[2019-09-06] MEDS ORDERED: fentaNYL 100 MCG/2 ML INJECTION (J3010) As Ordered ONE (08:42)
[2019-09-06] MEDS ORDERED: propofoL 200 MG/20 ML VIAL As Ordered ONE (08:42)
[2019-09-06] MEDS ORDERED: LIDOCAINE 2% INJ 100 MG/5 ML SDV (FOR ANES.) As Ordered ONE (08:42)
[2019-09-06] MEDS ORDERED: MIDAZOLAM INJ 2 MG/2 ML VIAL (J2250) As Ordered ONE (08:42)
[2019-09-06] MEDS ORDERED: ONDANSETRON 4MG/2ML VIAL (J2405) IV PRN (09:30)
[2019-09-06] MEDS ORDERED: LR 1,000 ML IV SCH (09:30)
[2019-09-06] MEDS ORDERED: oxyCODONE 5MG TAB PO PRN (09:30)
[2019-09-06 09:40] VITALS: BP 171/90
[2019-09-06] MEDS ORDERED: PERCOCET 5MG/325MG TAB PO PRN (10:31)
--- NOTE | 2019-09-06 15:59 | RO ---
DATE OF PROCEDURE: 09/06/2019 PREPROCEDURE DIAGNOSIS: Left kidney stone. POSTPROCEDURE DIAGNOSIS: Left kidney stone. PROCEDURE: Left extracorporeal shock wave lithotripsy. SURGEON: Ganesh Ng MD ONCOLOGY CONSULTANT: None ANESTHESIA: Monitored anesthesia care (MAC). OPERATIVE INDICATIONS: This is a 74-year-old male who was found to have left-sided kidney stones measuring up to 4-5 mm. He was brought to the operating room today for above-listed procedure. DESCRIPTION OF PROCEDURE: The patient was brought to the operating room and MAC was administered. Prophylactic antibiotics were infused. He was then placed in supine position in the supine position for a left-sided extracorporeal shock wave lithotripsy. Fluoroscopy was utilized to monitor stone position and fragmentation throughout the procedure. Shock waves were then delivered to the left-sided kidney stones, ungated. There were no arrhythmias. The stones did appear to fragment well. After 2500 shocks, the procedure was concluded. The patient was then awakened from anesthesia and transported to the recovery room in stable condition. ESTIMATED BLOOD LOSS: Zero mL. COMPLICATIONS: None. SPECIMENS: None. PLAN: The patient will followup in the clinic in a few weeks with imaging prior to assess for residual stone burden. GARRY
[2019-09-06] MEDS ORDERED: FLOM0.4C39 PO (22:45)
== END 2019-09-06 10:50 | disposition home or self-care (01) ==
LOC: M SDC 06:01
PROVIDERS: ATTEND Urology
DX: N20.0 Calculus of kidney (principal); I10 Essential (primary) hypertension; E78.00 Pure hypercholesterolemia, unspecified; E11.9 Type 2 diabetes mellitus without complications; M10.9 Gout, unspecified; M19.041 Primary osteoarthritis, right hand; M19.042 Primary osteoarthritis, left hand; M54.9 Dorsalgia, unspecified; Z87.442 Personal history of urinary calculi; Z87.891 Personal history of nicotine dependence; Z79.899 Other long term (current) drug therapy; Z79.84 Long term (current) use of oral hypoglycemic drugs; Z79.82 Long term (current) use of aspirin; Z91.018 Allergy to other foods

== ENCOUNTER 2019-09-06 19:22 | Inpatient (IN) | payer MEDICARE, OTHER ==
[~2019-09-06] VITALS: Ht 182.9 cm; Wt 92.2 kg
[~2019-09-06 19:22] MED LIST changes: -LR 1,000 ML IV ONE; -ceFAZolin SOD 2 GM in IV 1 EA IV ONE
[2019-09-06] MEDS ORDERED: ONDANSETRON 4MG/2ML VIAL (J2405) IV ONE (19:45)
[2019-09-06] MEDS ORDERED: NS 1,000 ML IV ONE ×2 (19:45→22:00)
[2019-09-06] MEDS: MORPHINE 4 MG/ML 1ML VIAL/SYRINGE (J2270) IV PRN ×2 (20:17→21:35)
[2019-09-06 20:33] LABS: BASO # 0.1 10^3/uL (0.0-0.2); BASO % 0.3 % (0.0-1.0); HEMATOCRIT 35.1 % (42.0-52.0); HEMOGLOBIN 11.6 g/dl (13.5-17.5); LYMPH # 0.7 10^3/uL (1.5-5.0); LYMPH % 3.2 % (24.0-44.0); MEAN CORPUSCULAR HEMOGLOBIN 29.7 pg (27.0-33.0); MEAN CORPUSCULAR VOLUME 89.8 fl (80.0-96.0); MONO # 1.5 10^3/uL (0.0-0.8); MONO % 6.8 % (0.0-5.0); NEUTROPHILS # 19.1 10^3/uL (1.5-8.5); PLATELET COUNT, AUTOMATED 200 10^3/uL (150-450); RED BLOOD COUNT 3.91 10^6/uL (4.30-6.10); WHITE BLOOD COUNT 21.5 10^3/uL (4.0-10.0)
[2019-09-06 20:56] LABS: CALCIUM LEVEL 8.3 MG/DL (8.8-10.2); CREATININE FOR GFR 1.68 MG/DL (0.70-1.30); GLOMERULAR FILTRATION RATE 42.6 (>42); POTASSIUM SERUM 5.6 MEQ/L (3.5-5.1)
[2019-09-06] MEDS ORDERED: HumaLOG INSULIN (NovoLOG) PER UNIT SC SCH (21:00)
--- NOTE | 2019-09-06 21:39 | REPVR ---
PROCEDURE INFORMATION: Exam: CT Abdomen And Pelvis Without Contrast Exam date and time: 09/06/2019 8:34 PM Age: 74 years old Clinical indication: Abdominal pain; Localized; Left; Additional info: Left renal colic TECHNIQUE: Imaging protocol: Computed tomography of the abdomen and pelvis without contrast. Radiation optimization: All CT scans at this facility use at least one of these dose optimization techniques: automated exposure control; mA and/or kV adjustment per patient size (includes targeted exams where dose is matched to clinical indication); or iterative reconstruction. COMPARISON: CT ABD PELVIS W/O CONTRAST 08/07/2019 1:29 PM FINDINGS: Lungs: There is subsegmental atelectasis and/or pleural parenchymal scarring at the lung bases more prominent than on the 08/07/2019 CT. Liver: There are several stable subcentimeter low-dense hepatic lesions.In a low-risk patient, this lesion is most likely to be benign and no further follow-up is recommended. In a high-risk patient, recommend follow-up MRI in 3-6 months (or earlier if warranted by the patient's specific clinical circumstances). Gallbladder and bile ducts: The gallbladder is not visualized and may have been resected. Pancreas: There is diffuse, benign fatty infiltration of the pancreas. Spleen: The spleen is normal. Adrenals: Normal. No mass. Kidneys and ureters: There are nonobstructing calculi in the right kidney. In comparison the prior study there is a large subcapsular hematoma in the left kidney compressing the renal parenchyma. The hematoma measures approximately 9 x 8.3 by 13 cm. It has ruptured in of the para renal space and into the retroperitoneum. Calculi are seen in the left renal collecting system. Stomach and bowel: The stomach is distended with fluid. There is no evidence of intestinal obstruction. Diverticulosis without evidence of diverticulitis. Appendix: No evidence of appendicitis. Intraperitoneal space: Unremarkable. No free air. No significant fluid collection. Vasculature: There is no evidence of an abdominal aortic aneurysm. The vasculature demonstrates diffuse moderate atherosclerotic calcification. Lymph nodes: Unremarkable. No enlarged lymph nodes. Bladder: The bladder is unremarkable. Reproductive: Unremarkable as visualized. Bones/joints: Unremarkable. No acute fracture. Soft tissues: Fat containing left inguinal hernia. IMPRESSION: There is a large subcapsular hematoma of the left kidney compressing the renal parenchyma. It measures 13 cm in greatest dimension. Hemorrhage is ruptured into the para renal space and retroperitoneum. Electronically signed by: Alissa Crenshaw On 09/06/2019 21:39:42 PM
[2019-09-06] MEDS ORDERED: MORPHINE 4 MG/ML 1ML VIAL/SYRINGE (J2270) IV PRN (22:15)
[2019-09-06 22:38] LABS: PROTHROMBIN TIME 14.9 SECONDS (11.8-14.0)
[2019-09-06 22:39] LABS: INR 1.19; PARTIAL THROMBOPLASTIN TIME 27.7 SECONDS (25.0-38.4)
[2019-09-06] MEDS ORDERED: FLOM0.4C39 PO (22:45)
[2019-09-06] MEDS ORDERED: ACETAMINOPHEN TAB 650MG DOSE (2X325MG) PO PRN (23:15)
[2019-09-06] MEDS ORDERED: MOM 30ML SUSPENSION UDC PO PRN (23:15)
[2019-09-06] MEDS ORDERED: MAALOX 30 ML SUSP *UDC PO PRN (23:15)
[2019-09-06] MEDS ORDERED: fentaNYL 100 MCG/2 ML INJECTION (J3010) IV PRN (23:15)
[2019-09-06] MEDS ORDERED: NS 1,000 ML IV SCH (23:15)
--- NOTE | 2019-09-06 23:18 | HPEPDOC ---
[facility] Medical History & Physical Date of Admission Sep 06, 2019 Date of Service: Sep 06, 2019 Primary Care Physician: ROBSON DA SILVA MD [facility] Attending Physician: LUISANA SCHROEDER MD History and Physical TIME OF SERVICE: 10:26 PM CHIEF COMPLAINT: Pain HISTORY OF PRESENT ILLNESS: This is a 74-year-old male who presents with complaints of left-sided 10 out of 10 in severity, sharp flank pain that didn't improve despite taking Percocet at home. The morphine in the ER helped alleviate the pain a little bit. Earlier on today he had left extracorporeal shockwave lithotripsy for ureteral stone. Per Dr. Sal CT showed subcapsular hematoma of the left kidney; he talked to Dr. Davenport who recommended admitting the patient and monitoring serial hemoglobins. REVIEW OF SYSTEMS: 12 point review of systems negative except as listed in HPI PAST MEDICAL/ SURGICAL HISTORY: NIDDM Chronic HTN Gout Dyslipidemia Nephrolithiasis managed with right stent placement with subsequent resection in 2019, laser lithotripsy in 2019, ESWL in 2019 Cholecystitis Right inguinal hernia repair Tendon repair Cataract surgery SOCIAL HISTORY: Former smoker FAMILY HISTORY: Denies family history of nephrolithiasis or kidney disease ALLERGIES: Please see below. HOME MEDICATIONS: Please see below. Vital Signs Date Time Temp Pulse Resp B/P (MAP) Pulse Ox O2 Delivery O2 Flow Rate FiO2 09/06/19 19:29 148/86 (106) 09/06/19 19:31 96.6 68 16 96 Room Air 09/06/19 20:42 2.0 PHYSICAL EXAMINATION: GEN: well-nourished / well developed INTEGUMENT: Appears slightly pale HEENT: NCAT / mucus membranes dry CVS: RRR/NMRG/ radial pulses intact / no lower extremity edema LUNGS: clear to auscultation bilaterally on room air ABDOMEN: soft & tender with palpation on the left lower abdomen NEURO: CN 2-12 are grossly intact / speech is not dysarthric PSYCH: alert and oriented / able to understand and follow all commands LABORATORY DATA: Anion Gap 8, Glomerular Filtration Rate 42.6, Calcium Level 8.3L Prothrombin Time 14.9H, Prothromb Time International Ratio 1.19, Activated Partial Thromboplast Time 27.7 IMAGING: CT abdomen and pelvis "IMPRESSION: There is a large subcapsular hematoma of the left kidney compressing the renal parenchyma. It measures 13 cm in greatest dimension. Hemorrhage is ruptured into the para renal space and retroperitoneum. " MICROBIOLOGY: Please see below. ASSESSMENT: Mr. Jama is a 74-year-old with a history of NIDDM, HTN, gout, dyslipidemia, nephrolithiasis, was admitted for management of a subcapsular hematoma of the left kidney with retroperitoneal hemorrhage. PLAN: 1. Acute blood loss anemia 2/2 Subcapsular hematoma of the left kidney with retroperitoneal hemorrhage His hemoglobin is below his baseline of about 14 Plan: Admit to PCU/follow-up serial hemoglobin, iron panel, type and screen/ NPO with IV fluids/follow-up with urology in the morning / because he has co- existing renal impairment, for pain control will order fentanyl because it is less likely to build up in his system than morphine 2. Leukocytosis - Plan: pending UA, may order Rocephin / f/u lactic acid and blood cx 3. Hyperkalemia. Likely due to renal impairment - Plan: Follow up repeat K, if it is still elevated will order kayexalate 4. NIDDM2 - Plan: / f/u accuchecks & A1C / hypoglycemia protocol / sliding scale insulin / hold oral anti-glycemics 5. Chronic HTN - Plan: losartan and atenolol 6. Dyslipidemia - Plan: rosuvastatin DVT PROPHYLAXIS: SCDs DISPOSITION: Home after more than 2 midnight's stay Home Medications Scheduled Allopurinol (Allopurinol) 100 Mg Tab, 300 MG PO DAILY HAS BEEN TAKING 300MG. [facility] SWITCHED HIM TO 100MG BUT HASN'T STARTED YET. Atenolol (Atenolol) 100 Mg Tab, 100 MG PO DAILY Losartan Potassium (Losartan Potassium) 25 Mg Tab, 25 MG PO QHS Metformin HCl (Metformin HCl) 500 Mg Tab, 500 MG PO WM Multivitamins (Thera M Plus Tablet) 1 Tab Tab, 1 TAB PO DAILY Rosuvastatin Calcium (Rosuvastatin Calcium) 40 Mg Tablet, 40 MG PO DAILY Tamsulosin HCl (Flomax) 0.4 Mg Capsule, 0.4 MG PO DAILY 30 MINUTES AFTER BREAKFAST Allergies Coded Allergies: banana (Verified Allergy, Severe, anaphylactic, 09/06/19) A-FIB/CHADSVASC A-FIB History Current/History of A-Fib/PAF?: No Current PO Anticoag Therapy: No LUISANA SCHROEDER MD Sep 06, 2019 23:18
[2019-09-06] MEDS ORDERED: GLUCAGON FOR INJ 1 MG VIAL (J1610) SC PRN (23:45)
[2019-09-06] MEDS ORDERED: GLUCOSE 4 GM CHEW TABLET PO PRN (23:45)
[2019-09-06] MEDS ORDERED: LOSARTAN 25 MG TAB PO SCH (23:45)
[2019-09-06] MEDS ORDERED: DEXTROSE 50% 50 ML SYRINGE IV PRN (23:45)
[2019-09-07] VITALS (11 sets, daily range): BP systolic 125–155; BP diastolic 60–84
[2019-09-07 00:12] LABS: PERCENT SATURATION 10.3 % (19.7-50.0)
[2019-09-07 00:17] LABS: HEMOGLOBIN A1c 6.2 %
--- NOTE | 2019-09-07 00:21 | ECGEPIP ---
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
[2019-09-07] MEDS ORDERED: SOD POLYSTYRENE SULFONATE SUSP 15 GM/60 ML UD PO ONE (03:45)
[2019-09-07 04:01] LABS: HEMATOCRIT 30.3 % (42.0-52.0); MEAN CORPUSCULAR HEMOGLOBIN 30.1 pg (27.0-33.0); MEAN CORPUSCULAR VOLUME 91.3 fl (80.0-96.0); PLATELET COUNT, AUTOMATED 173 10^3/uL (150-450); RED BLOOD COUNT 3.32 10^6/uL (4.30-6.10); WHITE BLOOD COUNT 19.5 10^3/uL (4.0-10.0)
[2019-09-07 04:38] LABS: CALCIUM LEVEL 7.4 MG/DL (8.8-10.2); CREATININE FOR GFR 1.74 MG/DL (0.70-1.30); GLOMERULAR FILTRATION RATE 40.9 (>42); POTASSIUM SERUM 5.8 MEQ/L (3.5-5.1)
[2019-09-07] MEDS: HumaLOG INSULIN (NovoLOG) PER UNIT SC SCH ×4 (06:00→23:58)
[2019-09-07] MEDS ORDERED: HYDROMORPHONE HCL 0.5 MG/ 0.5 ML SYRINGE (J1170 PER 1) IV PRN (06:00)
[2019-09-07] MEDS ORDERED: HumaLOG INSULIN (NovoLOG) PER UNIT SC SCH (07:30)
--- NOTE | 2019-09-07 07:46 | REP ---
Portable chest, 10:15 p.m., single AP view with the patient semi upright: Comparison is 10/13/2018. There is focal increased density inferiorly in the left lung suggestive of a left lower lobe infiltrate. The left upper lobe is clear. There is chronic parenchymal scarring inferiorly in the right lung. There is chronic elevation of the right hemidiaphragm. Right lung is otherwise clear. Cardiac size cannot be assessed, left cardiac margin is obscured. Impression: Left lower lobe infiltrate. Chronic scarring inferiorly in the right lung. Electronically Signed by Rogers Ortiz MD 09/07/2019 07:37 A
--- NOTE | 2019-09-07 08:02 | IPNPDOC ---
Text Note Date of Service The patient was seen on 09/07/19. NOTE CHIEF COMPLAINT: s/p Left ESWL 09/06/19 with severe left flank pain HISTORY OF PRESENT ILLNESS: Mr. Jama is being seen in consult status post left ESWL yesterday for 2 stones in the left kidney with 1 measuring up to 6 mm. His called saying that he was in severe pain yesterday afternoon and I recommended that they go to the emergency room. A CT scan was done which showed a large subcapsular hematoma the left kidney compressing the renal parenchyma measuring 13 cm in diameter. This did rupture into the pararenal space and retroperitoneum. His H&H dropped from a hemoglobin of 14 preoperatively to 11.6 last night in the ER and down to 10 this morning. We admitted him for serial H&H's and pain control. His H&H did drop from 11.6 when he was admitted last night to 10 this morning. He is much more comfortable than he was yesterday. REVIEW OF SYSTEMS: 12 point review of systems negative except as listed in HPI PAST MEDICAL/ SURGICAL HISTORY: Left ESWL 09/06/19 NIDDM Chronic HTN Gout Dyslipidemia Nephrolithiasis managed with right stent placement with subsequent resection in 2019, laser lithotripsy in 2019, ESWL in 2020 Cholecystitis Right inguinal hernia repair Tendon repair Cataract surgery SOCIAL HISTORY: Former smoker FAMILY HISTORY: Denies family history of nephrolithiasis or kidney disease Physical exam: His vital signs have been completely stable overnight and this morning he is afebrile. His pulse is 89. His blood pressures 155/84 and his respiratory rate is 20. He is alert and oriented 3. His head is normocephalic atraumatic his eyes are PERRLA. His lungs are clear and his heart is regular. He still has some left flank tenderness but it is quite mild right now. His abdomen is soft and nontender. His extremities show no cyanosis clubbing or edema. Impression: -Postoperative large left subcapsular hematoma after left ESWL for 6 mm stone -Bilateral nephrolithiasis -Other medical problems including qon-bazkbfw-jwrvardio diabetes, high blood pressure Plan: -Continue watchful waiting for now since the patient is stable and we will continue serial H&H's -Keep the patient nothing by mouth today and I will contact Dr. Hernadez of interventional radiology in case selective renal embolization needs to be done -Continue pain control and supportive care VS,Fishbone, I+O VS, Fishbone, I+O Laboratory Tests 09/06/19 20:11 09/07/19 00:14 09/07/19 03:55 Vital Signs Date Time Temp Pulse Resp B/P (MAP) Pulse Ox O2 Delivery O2 Flow Rate FiO2 09/07/19 05:30 88 17 130/78 (95) 93 Nasal Cannula 09/06/19 23:29 2.0 09/06/19 19:31 96.6 I&O- Last 24 Hours up to 6 AM 09/07/19 06:00 Intake Total 6800 ml Output Total 200 ml Balance 6600 ml MARY LIPSCOMB MD Sep 07, 2019 08:02
[2019-09-07] MEDS: ROSUVASTATIN 10 MG TAB (CRESTOR) PO SCH (08:33)
[2019-09-07] MEDS: atenoloL 50 MG TAB PO SCH (08:33)
[2019-09-07] MEDS: allopurinoL 100 MG TAB PO SCH (08:33)
[2019-09-07] MEDS: TAMSULOSIN 0.4 MG CAP PO SCH (08:33)
[2019-09-07 10:37] LABS: HEMATOCRIT 29.5 % (42.0-52.0); HEMOGLOBIN 9.9 g/dl (13.5-17.5)
--- NOTE | 2019-09-07 12:00 | IPNPDOC ---
Subjective Date Seen The patient was seen on 09/07/19. Subjective Chief Complaint/HPI left flank less tender to touch, pain controlled. Objective Physical Examination General Exam: Positive: Alert, No Acute Distress Eye Exam: Positive: PERRLA; Negative: Sclera icteric Neck Exam: Positive: Supple; Negative: JVD Chest Exam: Positive: Clear to auscultation Abdomen Exam: Positive: Normal bowel sounds, Soft, Tenderness (left flank with obvious fullness) Extremity Exam: Negative: Clubbing, Cyanosis, Edema Skin Exam: Negative: Rash Neuro Exam: Positive: Normal Speech, Sensation Intact Psych Exam: Positive: Mental status NL, Mood NL Assessment /Plan Assessment # s/p Left kidney lithotripsy (POD #1) complicated by Acute blood loss anemia 2/2 Subcapsular hematoma of the left kidney with retroperitoneal hemorrhage - hgb 10 this am - remains NPO awaiting potential IR intervention - Urology note reviewed # KANG with CKD stage 3 # Hyperkalemia - slight worse due to acute blood loss - K level improved - hold losartan # Leukocytosis suspected 2/2 to acute hematoma - repeat CBC in am # NIDDM2 - novolog SS # HTN - continue atenolol Plan/VTE VTE Prophylaxis Ordered?: No VTE Exclusion Mechanical Proph: N/A:VTE Prophy Ordered VTE Exclusion Pharmacological: Active Bleeding VS, I&O, 24H, Fishbone Vital Signs/I&O Vital Signs Date Time Temp Pulse Resp B/P (MAP) Pulse Ox O2 Delivery O2 Flow Rate FiO2 09/07/19 08:33 89 155/84 09/07/19 05:50 97.2 20 95 Room Air 09/06/19 23:29 2.0 I&O- Last 24 Hours up to 6 AM 09/07/19 06:00 Intake Total 6800 ml Output Total 200 ml Balance 6600 ml Laboratory Data 24H LABS Laboratory Tests 2 09/06/19 20:11: Immature Granulocyte % (Auto) 0.7, Neutrophils (%) (Auto) 89.0H, Lymphocytes (%) (Auto) 3.2L, Monocytes (%) (Auto) 6.8H, Eosinophils (%) (Auto) 0.0, Basophils (%) (Auto) 0.3, Neutrophils # (Auto) 19.1H, Lymphocytes # (Auto) 0.7L, Monocytes # (Auto) 1.5H, Eosinophils # (Auto) 0.0, Basophils # (Auto) 0.1, Nucleated Red Blood Cells % (auto) 0.0, Anion Gap 8, Glomerular Filtration Rate 42.6, Estimated Mean Plasma Glucose 131H, Hemoglobin A1c 6.2, Calcium Level 8.3L, Iron Level 24L, Total Iron Binding Capacity 233L, Transferrin % Saturation 10.3L, Ferritin 332 09/06/19 22:09: Prothrombin Time 14.9H, Prothromb Time International Ratio 1.19, Activated Partial Thromboplast Time 27.7 09/07/19 00:14: Lactic Acid Level 2.8*H 09/07/19 00:43: Bedside Glucose (Misc Panel) 176H 09/07/19 03:55: Nucleated Red Blood Cells % (auto) 0.0, Anion Gap 1L, Glomerular Filtration Rate 40.9L, Calcium Level 7.4L 09/07/19 04:38: Urine Color REDH, Urine Appearance CLOUDYH, Urine pH 6.0, Urine Specific [place] 1.020, Urine Protein 2+H, Urine Glucose (UA) 1+H, Urine Ketones TRACEH, Urine Blood 3+H, Urine Nitrite NEGATIVE, Urine Bilirubin NEGATIVE, Urine Urobilinogen 0.2, Urine Leukocyte Esterase NEGATIVE, Urine WBC (Auto) 286, Urine RBC (Auto) 4118, Urine Bacteria (Auto) NEG, Urine Squamous Epithelial Cells 0, Urine Renal Epithelial Cells 1, Urine Mucus (Auto) SMALL, Urine Yeast-Like Cells (Auto) LARGEH, Urine Sperm (Auto) NONE 09/07/19 05:53: Lactic Acid Level 3.5*H 09/07/19 06:21: Bedside Glucose (Misc Panel) 177H 09/07/19 10:17: Lactic Acid Followup at 4 Hours 2.7*H CBC/BMP Laboratory Tests 09/06/19 20:11 09/07/19 00:14 09/07/19 03:55 09/07/19 10:17 Microbiology Microbiology 09/07/19 Urine Culture, Received Pending 09/07/19 Blood Culture, Received Pending YEYO DIAZ MD Sep 07, 2019 12:00
[2019-09-07 16:20] LABS: HEMATOCRIT 26.9 % (42.0-52.0); HEMOGLOBIN 8.9 g/dl (13.5-17.5)
[2019-09-07] MEDS ORDERED: diphenhydrAMINE INJ 50MG/ML VIAL (J1200) As Ordered ONE (16:45)
[2019-09-07] MEDS ORDERED: fentaNYL 100 MCG/2 ML INJECTION (J3010) As Ordered ONE (16:45)
[2019-09-07] MEDS ORDERED: MIDAZOLAM INJ 2 MG/2 ML VIAL (J2250) As Ordered ONE (16:45)
[2019-09-07] MEDS ORDERED: ISOVUE-300 61% 50ML VIAL (Q9967) As Ordered ONE (16:46)
[2019-09-07] MEDS ORDERED: LIDOCAINE 1% MDV 20ML VIAL As Ordered ONE (16:46)
[2019-09-07] MEDS ORDERED: NS 1,000 ML IV SCH ×2 (19:00→20:00)
[2019-09-07 22:45] LABS: HEMATOCRIT 23.7 % (42.0-52.0); HEMOGLOBIN 7.9 g/dl (13.5-17.5)
[2019-09-08] VITALS (14 sets, daily range): BP systolic 134–148; BP diastolic 64–81
[2019-09-08 04:42] LABS: HEMATOCRIT 22.8 % (42.0-52.0); HEMOGLOBIN 7.6 g/dl (13.5-17.5); MEAN CORPUSCULAR HGB CONC 33.3 g/dl (32.0-36.5); MEAN CORPUSCULAR VOLUME 90.1 fl (80.0-96.0); PLATELET COUNT, AUTOMATED 126 10^3/uL (150-450); RED BLOOD COUNT 2.53 10^6/uL (4.30-6.10); WHITE BLOOD COUNT 12.4 10^3/uL (4.0-10.0)
[2019-09-08 05:00] LABS: CALCIUM LEVEL 7.5 MG/DL (8.8-10.2); CREATININE FOR GFR 1.3 MG/DL (0.70-1.30); GLOMERULAR FILTRATION RATE 57.3 (>42); POTASSIUM SERUM 3.9 MEQ/L (3.5-5.1)
[2019-09-08] MEDS: HumaLOG INSULIN (NovoLOG) PER UNIT SC SCH ×4 (05:59→20:32)
[2019-09-08] MEDS ORDERED: NS 1,000 ML IV SCH (08:00)
[2019-09-08] MEDS: TAMSULOSIN 0.4 MG CAP PO SCH (08:20)
[2019-09-08] MEDS: ROSUVASTATIN 10 MG TAB (CRESTOR) PO SCH (08:20)
[2019-09-08] MEDS: allopurinoL 100 MG TAB PO SCH (08:20)
[2019-09-08] MEDS: atenoloL 50 MG TAB PO SCH (08:21)
--- NOTE | 2019-09-08 09:40 | IPNPDOC ---
Subjective Date Seen The patient was seen on 09/08/19. Subjective Chief Complaint/HPI Denies any pain, albeit left flank is tender to palpation Objective Physical Examination General Exam: Positive: Alert, Cooperative, No Acute Distress Eye Exam: Positive: PERRLA; Negative: Sclera icteric Neck Exam: Positive: Supple; Negative: JVD Chest Exam: Positive: Clear to auscultation Heart Exam: Positive: Rate Normal Abdomen Exam: Positive: Normal bowel sounds, Soft, Tenderness (left flank with obvious fullness) Extremity Exam: Negative: Clubbing, Cyanosis, Edema Skin Exam: Negative: Rash Neuro Exam: Positive: Normal Speech, Sensation Intact Psych Exam: Positive: Mental status NL, Mood NL Assessment /Plan Assessment # s/p Left kidney lithotripsy (POD #2) complicated by Acute blood loss anemia 2/2 Subcapsular hematoma of the left kidney with retroperitoneal hemorrhage - hgb 7.6 gm/dl this am, hemodynamics stable - tx 2 units PRBC now, continue with serial H/H - IR operative note not available, RN unclear what type of procedure he had done yesterday # KANG with CKD stage 3 # Hyperkalemia - resolved - hold losartan # Leukocytosis suspected 2/2 to acute hematoma - improved # NIDDM2 - novolog SS - change to ac + hs checks # HTN - hold atenolol and losartan with dropping hgb Plan/VTE VTE Prophylaxis Ordered?: No VTE Exclusion Mechanical Proph: N/A:VTE Prophy Ordered VTE Exclusion Pharmacological: Active Bleeding VS, I&O, 24H, Fishbone Vital Signs/I&O Vital Signs Date Time Temp Pulse Resp B/P (MAP) Pulse Ox O2 Delivery O2 Flow Rate FiO2 09/08/19 08:21 97 149/79 09/08/19 04:30 98.1 18 95 Room Air 09/07/19 17:55 2 I&O- Last 24 Hours up to 6 AM 09/08/19 06:00 Intake Total 1425 ml Output Total 1475 ml Balance -50 ml Laboratory Data 24H LABS Laboratory Tests 2 09/07/19 10:17: Lactic Acid Followup at 4 Hours 2.7*H 09/07/19 11:44: Bedside Glucose (Misc Panel) 139H 09/07/19 19:18: Bedside Glucose (Misc Panel) 136H 09/07/19 23:52: Bedside Glucose (Misc Panel) 137H 09/08/19 04:23: Nucleated Red Blood Cells % (auto) 0.0, Anion Gap 6L, Glomerular Filtration Rate 57.3, Calcium Level 7.5L CBC/BMP Laboratory Tests 09/07/19 10:17 09/07/19 15:58 09/07/19 18:55 09/07/19 22:23 09/08/19 04:23 Microbiology Microbiology 09/07/19 Urine Culture - Final, Complete 09/07/19 Blood Culture - Preliminary, Resulted No growth after 24 hours . All specim... YEYO DIAZ MD Sep 08, 2019 09:40
[2019-09-08 10:07] LABS: HEMATOCRIT 22.5 % (42.0-52.0); HEMOGLOBIN 7.6 g/dl (13.5-17.5)
[2019-09-08] MEDS ORDERED: GLUCAGON FOR INJ 1 MG VIAL (J1610) SC PRN (12:15)
[2019-09-08] MEDS ORDERED: GLUCOSE 4 GM CHEW TABLET PO PRN (12:15)
[2019-09-08] MEDS ORDERED: DEXTROSE 50% 50 ML SYRINGE IV PRN (12:15)
--- NOTE | 2019-09-08 16:52 | IPNPDOC ---
Text Note Date of Service The patient was seen on 09/08/19. NOTE Mr. Jama is postop day #3 from a Left ESWL with a perinephric bleed and then underwent a renal arteriogram and is postop day #1 from that. No definitive bleeding was seen so embolization was not done. Unfortunately though his H&H continues to drop and he received 2 units of packed red blood cells today. Pain is much improved from his original presentation and he has no significant complaints. Physical exam: His vital signs remained stable and he's been afebrile. His heart has a regular rate and rhythm and his lungs are clear. He does have mild left CVA tenderness but his abdomen is soft and nontender. His extremities show no cyanosis clubbing or edema. Impression: -POD#3 left ESWL with a perinephric hematoma -Postop day #1 renal arteriogram with no bleed seen that could be embolized -Continue drop in H&H but patient is hemodynamically stable Plan: -Patient was transfused 2 units of packed red blood cells today and we will continue to monitor his H&H every 6 hours and if this continues to drop think consideration should be made to transfer the patient to [place] for another renal arteriogram to see if any bleeding completely embolized -Continue supportive care VS,K[place], I+O VS, Deysie, I+O Laboratory Tests 09/07/19 18:55 09/07/19 22:23 09/08/19 04:23 09/08/19 09:48 Vital Signs Date Time Temp Pulse Resp B/P (MAP) Pulse Ox O2 Delivery O2 Flow Rate FiO2 09/08/19 15:33 97.4 87 18 139/76 97 Room Air 09/07/19 17:55 2 I&O- Last 24 Hours up to 6 AM 09/08/19 06:00 Intake Total 1425 ml Output Total 1475 ml Balance -50 ml MARY LIPSCOMB MD Sep 08, 2019 16:48
[2019-09-08 18:51] LABS: HEMATOCRIT 30.3 % (42.0-52.0); HEMOGLOBIN 10.2 g/dl (13.5-17.5)
[2019-09-08 22:32] LABS: HEMATOCRIT 26.1 % (42.0-52.0)
[2019-09-09] VITALS (13 sets, daily range): BP systolic 141–160; BP diastolic 50–89
[2019-09-09 04:47] LABS: HEMATOCRIT 25.9 % (42.0-52.0); HEMOGLOBIN 8.7 g/dl (13.5-17.5); MEAN CORPUSCULAR HEMOGLOBIN 29.8 pg (27.0-33.0); MEAN CORPUSCULAR HGB CONC 33.6 g/dl (32.0-36.5); MEAN CORPUSCULAR VOLUME 88.7 fl (80.0-96.0); PLATELET COUNT, AUTOMATED 120 10^3/uL (150-450); RED BLOOD COUNT 2.92 10^6/uL (4.30-6.10); WHITE BLOOD COUNT 9.6 10^3/uL (4.0-10.0)
[2019-09-09] MEDS: HumaLOG INSULIN (NovoLOG) PER UNIT SC SCH ×4 (07:30→21:00)
[2019-09-09 08:17] LABS: BLOOD UREA NITROGEN 28 MG/DL (7-18); CALCIUM LEVEL 7.8 MG/DL (8.8-10.2); CARBON DIOXIDE LEVEL 29 MEQ/L (21-32); CHLORIDE LEVEL 109 MEQ/L (98-107); CREATININE FOR GFR 1.22 MG/DL (0.70-1.30); GLOMERULAR FILTRATION RATE > 60.0 (>42); GLUCOSE, FASTING 136 MG/DL (70-100); POTASSIUM SERUM 3.8 MEQ/L (3.5-5.1); SODIUM LEVEL 142 MEQ/L (136-145)
--- NOTE | 2019-09-09 08:23 | REPVR ---
PROCEDURE INFORMATION: Exam: CT Abdomen And Pelvis Without Contrast Exam date and time: 09/09/2019 7:47 AM Age: 74 years old Clinical indication: Condition or disease; Other: F/u for retroperitoneal bleed TECHNIQUE: Imaging protocol: Computed tomography of the abdomen and pelvis without contrast. Radiation optimization: All CT scans at this facility use at least one of these dose optimization techniques: automated exposure control; mA and/or kV adjustment per patient size (includes targeted exams where dose is matched to clinical indication); or iterative reconstruction. COMPARISON: CT ABD PELVIS W/O CONTRAST 09/06/2019 8:31 PM FINDINGS: Lungs: Mild dependent atelectasis. Pleural space: Increased volume of the small left pleural effusion. Heart: Tiny pericardial effusion. Liver: No mass. Gallbladder and bile ducts: Gallbladder is decompressed or absent. No biliary ductal dilation. Pancreas: No ductal dilation. Spleen: Spleen is at the upper limits of normal in size. Adrenals: No mass. Kidneys and ureters: There is no significant change in appearance of the large left subcapsular renal hematoma which measures up to 5.8 cm thickness, with a similar degree of rupture and perinephric hemorrhage throughout the retroperitoneum. Multiple renal vascular calcifications and small nephroliths are present predominantly inferiorly in the kidney. No hydronephrosis. There has been some redistribution of the retroperitoneal hemorrhage with increased distribution inferiorly in the retroperitoneum and in the extraperitoneal pelvis. Stomach and bowel: Small small duodenal diverticulum. No bowel obstruction. Scattered colonic diverticulosis. Appendix: No evidence of appendicitis. Intraperitoneal space: No free air. Vasculature: Aortic annular and coronary artery calcifications are present. Mild aortic and branch vessel atherosclerosis. Lymph nodes: No enlarged lymph nodes. Bladder: Unremarkable as visualized. Reproductive: Unremarkable as visualized. Bones/joints: No acute fracture. Soft tissues: Small fat containing left inguinal hernia. IMPRESSION: There is no significant change in the large left renal subcapsular hematoma and perinephric hemorrhage with some redistribution of the retroperitoneal hemorrhage towards the pelvis. Lacking a provided history of trauma, recommend follow-up imaging of the kidney after resolution of hemorrhage with multiphasic renal MRI or CT to exclude an underlying mass. Electronically signed by: Adam Narvaez On 09/09/2019 08:23:09 AM
[2019-09-09] MEDS: TAMSULOSIN 0.4 MG CAP PO SCH (08:53)
[2019-09-09] MEDS: allopurinoL 100 MG TAB PO SCH (08:53)
[2019-09-09] MEDS: ROSUVASTATIN 10 MG TAB (CRESTOR) PO SCH (08:53)
[2019-09-09 10:11] LABS: HEMATOCRIT 26.6 % (42.0-52.0); MEAN CORPUSCULAR HEMOGLOBIN 30.1 pg (27.0-33.0); MEAN CORPUSCULAR HGB CONC 33.8 g/dl (32.0-36.5); PLATELET COUNT, AUTOMATED 114 10^3/uL (150-450); RED BLOOD COUNT 2.99 10^6/uL (4.30-6.10); WHITE BLOOD COUNT 9.1 10^3/uL (4.0-10.0)
--- NOTE | 2019-09-09 10:38 | IPNPDOC ---
Subjective Date Seen The patient was seen on 09/09/19. Subjective Chief Complaint/HPI No acute events overnight. left flank pain only a mild ache. Vitals stable, no lightheadedness or SOB with activity Objective Physical Examination General Exam: Positive: Alert, No Acute Distress Eye Exam: Positive: PERRLA; Negative: Sclera icteric ENT Exam: Positive: Mucous membr. moist/pink Neck Exam: Positive: Supple; Negative: JVD Chest Exam: Positive: Clear to auscultation, Normal air movement Heart Exam: Positive: Rate Normal, Normal S1, Normal S2; Negative: Tachycardic Abdomen Exam: Positive: Normal bowel sounds, Soft, Tenderness (left flank with obvious fullness) Extremity Exam: Negative: Clubbing, Cyanosis, Edema Skin Exam: Negative: Rash Psych Exam: Positive: Mental status NL Assessment /Plan Assessment # s/p Left kidney lithotripsy (POD #3) complicated by Acute blood loss anemia 2/2 Subcapsular hematoma of the left kidney with retroperitoneal hemorrhage - hgb stable - likely home in 1-2 days - Repeat CT abd/pelvis shows: There is no significant change in the large left renal subcapsular hematoma and perinephric hemorrhage with some redistribution of the retroperitoneal hemorrhage towards the pelvis. Lacking a provided history of trauma, recommend follow-up imaging of the kidney after resolution of hemorrhage with multiphasic renal MRI or CT to exclude an underlying mass # KANG with CKD stage 3 # Hyperkalemia - resolved - hold losartan # Leukocytosis suspected 2/2 to acute hematoma - resolved # NIDDM2 - novolog SS - change to ac + hs checks # HTN - Hgb relatively stable on serial testing - resume atenolol in am 09/09 - hold losartan Plan/VTE VTE Prophylaxis Ordered?: No VTE Exclusion Mechanical Proph: N/A:VTE Prophy Ordered VTE Exclusion Pharmacological: Active Bleeding VS, I&O, 24H, Fishbone Vital Signs/I&O Vital Signs Date Time Temp Pulse Resp B/P (MAP) Pulse Ox O2 Delivery O2 Flow Rate FiO2 09/09/19 06:00 98.2 90 18 141/79 (99) 96 Room Air 09/07/19 17:55 2 I&O- Last 24 Hours up to 6 AM 09/09/19 06:00 Intake Total 1901 ml Output Total 900 ml Balance 1001 ml Laboratory Data 24H LABS Laboratory Tests 2 09/08/19 11:20: Bedside Glucose (Misc Panel) 183H 09/08/19 16:21: Bedside Glucose (Misc Panel) 142H 09/08/19 20:05: Bedside Glucose (Misc Panel) 167H 09/09/19 04:18: Nucleated Red Blood Cells % (auto) 0.0, Anion Gap 4L, Glomerular Filtration Rate > 60.0, Calcium Level 7.8L 09/09/19 06:49: Bedside Glucose (Misc Panel) 136H 09/09/19 09:57: Nucleated Red Blood Cells % (auto) 0.0 CBC/BMP Laboratory Tests 09/08/19 18:26 09/08/19 22:27 09/09/19 04:18 09/09/19 09:57 Microbiology Microbiology 09/07/19 Urine Culture - Final, Complete 09/07/19 Blood Culture - Preliminary, Resulted No Growth after 48 hours. All Specime... YEYO DIAZ MD Sep 09, 2019 10:38
[2019-09-09] MEDS: atenoloL 50 MG TAB PO SCH (11:29)
--- NOTE | 2019-09-09 12:48 | IPNPDOC ---
Text Note Date of Service The patient was seen on 09/09/19. NOTE Mr. Jama is postop day #4 from a Left ESWL with a perinephric bleed and then underwent a renal arteriogram and is postop day #2 from that. No definitive bleeding was seen so embolization was not done. Unfortunately though his H&H continues to drop and he received 2 units of packed red blood cells yesterday and I wrote for 2 more today. He denies any significant pain. Physical exam: His vital signs remained stable and he's been afebrile. His heart has a regular rate and rhythm and his lungs are clear. He does have mild left CVA tenderness but his abdomen is soft and nontender. His extremities show no cyanosis clubbing or edema. Impression: -POD#4 left ESWL with a perinephric hematoma -Postop day #2 renal arteriogram with no bleed seen that could be embolized -Continue drop in H&H but patient is hemodynamically stable Plan: -Patient was transfused 2 units of packed red blood cells yesterday and 2 more ordered now. We will continue to monitor his H&H every 6 hours and if this continues to drop think consideration should be made to transfer the patient to [facility] for another renal arteriogram to see if any bleeding can be embolized -Continue supportive care VS,Pedro, I+O VS, Pedro, I+O Laboratory Tests 09/08/19 18:26 09/08/19 22:27 09/09/19 04:18 09/09/19 09:57 Vital Signs Date Time Temp Pulse Resp B/P (MAP) Pulse Ox O2 Delivery O2 Flow Rate FiO2 09/09/19 12:38 98.3 88 18 157/86 96 Room Air 09/07/19 17:55 2 I&O- Last 24 Hours up to 6 AM 09/09/19 06:00 Intake Total 1901 ml Output Total 900 ml Balance 1001 ml MARY LIPSCOMB MD Sep 09, 2019 12:48
[2019-09-09] MEDS ORDERED: FUROSEMIDE 20 MG/2 ML VIAL (J1940) IV ONE (13:00)
[2019-09-09 20:19] LABS: HEMATOCRIT 34.4 % (42.0-52.0); MEAN CORPUSCULAR HEMOGLOBIN 29.6 pg (27.0-33.0); MEAN CORPUSCULAR HGB CONC 34.3 g/dl (32.0-36.5); MEAN CORPUSCULAR VOLUME 86.4 fl (80.0-96.0); PLATELET COUNT, AUTOMATED 128 10^3/uL (150-450); RED BLOOD COUNT 3.98 10^6/uL (4.30-6.10); WHITE BLOOD COUNT 11.9 10^3/uL (4.0-10.0)
[2019-09-09 20:32] LABS: HEMOGLOBIN 11.8 g/dl (13.5-17.5)
[2019-09-10 01:59] LABS: HEMATOCRIT 32.1 % (42.0-52.0); MEAN CORPUSCULAR HEMOGLOBIN 29.4 pg (27.0-33.0); MEAN CORPUSCULAR HGB CONC 34.3 g/dl (32.0-36.5); MEAN CORPUSCULAR VOLUME 85.8 fl (80.0-96.0); PLATELET COUNT, AUTOMATED 130 10^3/uL (150-450); RED BLOOD COUNT 3.74 10^6/uL (4.30-6.10); WHITE BLOOD COUNT 11.3 10^3/uL (4.0-10.0)
[2019-09-10 06:00] VITALS: BP 154/88
[2019-09-10 06:08] LABS: HEMATOCRIT 32.3 % (42.0-52.0); MEAN CORPUSCULAR HEMOGLOBIN 29.4 pg (27.0-33.0); MEAN CORPUSCULAR HGB CONC 34.1 g/dl (32.0-36.5); MEAN CORPUSCULAR VOLUME 86.4 fl (80.0-96.0); PLATELET COUNT, AUTOMATED 123 10^3/uL (150-450); RED BLOOD COUNT 3.74 10^6/uL (4.30-6.10); WHITE BLOOD COUNT 11.4 10^3/uL (4.0-10.0)
[2019-09-10 06:28] LABS: BLOOD UREA NITROGEN 26 MG/DL (7-18); CALCIUM LEVEL 8.6 MG/DL (8.8-10.2); CARBON DIOXIDE LEVEL 29 MEQ/L (21-32); CHLORIDE LEVEL 105 MEQ/L (98-107); CREATININE FOR GFR 1.23 MG/DL (0.70-1.30); GLOMERULAR FILTRATION RATE > 60.0 (>42); GLUCOSE, FASTING 149 MG/DL (70-100); POTASSIUM SERUM 3.4 MEQ/L (3.5-5.1); SODIUM LEVEL 140 MEQ/L (136-145)
[2019-09-10] MEDS ORDERED: POTASSIUM CHLORIDE 10 MEQ SR TABLET PO ONE (08:00)
--- NOTE | 2019-09-10 08:19 | IPNPDOC ---
Subjective Review oF Systems Chief Complaint The patient is a 74-year-old male admitted with a reason for visit of Renal Hemorrhage, Left. Events since Last Encounter No acute events o/n. Patient denies pain. No lightheadedness. No chest pain or SOB. No n/v. No f/c/ns. Objective Physical Examination General Exam: Alert, Cooperative, No Acute Distress ABDOMEN EXAM: Soft, Tenderness (mild LLQ) Skin Exam: Nl turgor and temperature Neuro Exam: Normal Speech Psych Exam: Mental status NL, Mood NL Other physical findings no CVAT Vital Signs/I&O Vital Signs Date Time Temp Pulse Resp B/P (MAP) Pulse Ox O2 Delivery O2 Flow Rate FiO2 09/10/19 06:00 98.1 93 16 154/88 (110) 96 Room Air 09/07/19 17:55 2 I&O- Last 24 Hours up to 6 AM 09/10/19 06:00 Intake Total 2103 ml Output Total 2050 ml Balance 53 ml Laboratory Data Labs 24H Laboratory Tests 2 09/09/19 09:57: Nucleated Red Blood Cells % (auto) 0.0 09/09/19 11:42: Bedside Glucose (Misc Panel) 186H 09/09/19 16:30: Bedside Glucose (Misc Panel) 133H 09/09/19 19:55: Bedside Glucose (Misc Panel) 225H 09/09/19 20:03: Nucleated Red Blood Cells % (auto) 0.0 09/10/19 01:54: Nucleated Red Blood Cells % (auto) 0.0 09/10/19 05:47: Nucleated Red Blood Cells % (auto) 0.0, Anion Gap 6L, Glomerular Filtration Rate > 60.0, Calcium Level 8.6L CBC/BMP Laboratory Tests 09/09/19 09:57 09/09/19 20:03 09/10/19 01:54 09/10/19 05:47 FSBS Laboratory Tests Test 09/09/19 11:42 09/09/19 16:30 09/09/19 19:55 Range/Units Bedside Glucose (Misc Panel) 186 133 225 83-110 MG/DL Microbiology Microbiology 09/07/19 Urine Culture - Final, Complete 09/07/19 Blood Culture - Preliminary, Resulted No Growth after 72 hours. All specime... Assessment/Plan Date Seen The patient was seen on 09/10/19. Patient Summary This is a 74 y/o M admitted for a large left subcapsular hematoma s/p L ESWL on 09/06/19. He feels well. He received 2 more units of pRBCs last night. His Hb is stable at 11. Vitals are stable. Good UOP. Plan/VTE VTE Prophylaxis Ordered?: No VTE Exclusion Mechanical Proph: N/A:VTE Prophy Ordered VTE Exclusion Pharmacological: Active Bleeding Plan - will stop q6 CBCs at this point as Hb and vitals are stable - check stat Hb if BP drops - ambulate - regular diet - assuming Hb is stable for 24hrs, plan for discharge home tomorrow ABHIJIT ALEXANDRE MD Sep 10, 2019 08:19
[2019-09-10] MEDS: TAMSULOSIN 0.4 MG CAP PO SCH (09:02)
[2019-09-10] MEDS: allopurinoL 100 MG TAB PO SCH (09:02)
[2019-09-10] MEDS: atenoloL 50 MG TAB PO SCH (09:05)
[2019-09-10] MEDS: HumaLOG INSULIN (NovoLOG) PER UNIT SC SCH ×4 (09:05→21:00)
[2019-09-10] MEDS: ROSUVASTATIN 10 MG TAB (CRESTOR) PO SCH (09:06)
--- NOTE | 2019-09-10 13:36 | REP ---
IR Aortogram. IR Selective left renal artery catheterization and arteriogram. IR Selective left accessory renal artery catheterization and arteriogram. IR Selective left lumbar artery catheterization and arteriogram. IR Selective second left lumbar artery catheterization and arteriogram. IR moderate sedation. Clinical Information: Left renal hemorrhage status post ESWL. Physician: Dr Hernadez.Procedure: The patient was advised of the benefits, risks, and alternatives of the procedure and informed consent was obtained.A time out was performed with verification of the patient's name, MRN, site of procedure, and type of procedure to be performed. The patient was positioned in the supine position on the angiographic table. The site was prepped and draped in the usual sterile fashion.Moderate sedation was performed by the physician including the presence of an independent trained observer who assisted in monitoring the patient's level of consciousness and physiological status. Following the administration of Fentanyl and Versed, the physician spent 90 minutes of continuous [id number] time with the patient. A metal miner radiograph reveals no gross abnormality. The right femoral artery was accessed with a micropuncture kit. A KnexxLocal wire was advanced into the aorta. The micropuncture sheath was exchanged over the wire for a a 5-Urdu vascular sheath. A 5-Urdu flush catheter was advanced over the wire and used to catheterize the abdominal aorta. An aortogram was performed and this demonstrates celiac artery, superior mesenteric artery and bilateral renal arteries. No active extravasation over the region of the left kidney. The flush catheter was used to to catheterize the aortic bifurcation. The catheter was removed over the wire. A Espinoza 1 catheter was advanced over the wire under fluoroscopy guidance and formed aver the aortic bifurcation. The Espinoza catheter was used to catheterize the main left renal artery. An arteriogram was performed and this demonstrates supply to 95% of the left kidney from this renal artery. No active extravasation from the main renal artery, lobar, segmental or sub segmental branches. The catheter was used to catheterize the left L2 lumbar artery. An arteriogram was performed and this demonstrates no active extravasation from this lumbar artery. The Espinoza catheter was used under fluoroscopy guidance to catheterize the accessory left renal artery. An arteriogram was performed and this demonstrates supply to the tip of the lower pole of the left kidney. No active extravasation. The diagnostic catheter was used under fluoroscopy guidance to catheterize the inferior mesenteric artery. An arteriogram was performed and this demonstrates unremarkable inferior mesenteric artery. No active extravasation. The diagnostic catheter was used under fluoroscopy guidance to catheterize the L3 lumbar artery. An arteriogram was performed and this demonstrates no active extravasation from the lumbar artery. The catheter was removed over a wire . A 5-Urdu Mynx device was used to close the groin arteriotomy and the sheath was removed. Hemostasis achieved. A sterile dressing was applied to the site. Patient tolerated the procedure well and was transferred to PRU in stable condition. Complications: None. Estimated blood loss: Less than 5 ml. Impression: Aortogram, selective left main renal artery and accessory renal artery angiograms and lumbar arteriograms demonstrate no active extravasation over the region of the left kidney. No embolization indicated. Thank you for this referral. Electronically Signed by Alivia Hernadez MD 09/10/2019 01:34 P
--- NOTE | 2019-09-10 13:57 | IPNPDOC ---
Subjective Date Seen The patient was seen on 09/10/19. Subjective Chief Complaint/HPI No issues, looking forward to going home tomorrow Objective Physical Examination General Exam: Positive: Alert, No Acute Distress Eye Exam: Positive: PERRLA; Negative: Sclera icteric ENT Exam: Positive: Mucous membr. moist/pink Neck Exam: Positive: Supple; Negative: JVD Chest Exam: Positive: Clear to auscultation, Normal air movement Abdomen Exam: Positive: Normal bowel sounds, Soft, Tenderness (left flank with obvious fullness) Extremity Exam: Negative: Clubbing, Cyanosis, Edema Skin Exam: Negative: Rash Psych Exam: Positive: Mental status NL Assessment /Plan Assessment # s/p Left kidney lithotripsy (POD #3) complicated by Acute blood loss anemia 2/2 Subcapsular hematoma of the left kidney with retroperitoneal hemorrhage - hgb stable - likely home tomorrow - will need follow-up imaging of the kidney after resolution of hemorrhage with multiphasic renal MRI or CT to exclude an underlying mass # KANG with CKD stage 3 # Hyperkalemia - resolved - resumed losartan # Leukocytosis suspected 2/2 to acute hematoma # NIDDM2 - novolog SS - change to ac + hs checks # HTN - Hgb relatively stable on serial testing - continue atenolol - continue losartan Plan/VTE VTE Prophylaxis Ordered?: No VTE Exclusion Mechanical Proph: N/A:VTE Prophy Ordered VTE Exclusion Pharmacological: Active Bleeding VS, I&O, 24H, Fishbone Vital Signs/I&O Vital Signs Date Time Temp Pulse Resp B/P (MAP) Pulse Ox O2 Delivery O2 Flow Rate FiO2 09/10/19 09:05 95 158/86 09/10/19 06:00 98.1 16 96 Room Air 09/07/19 17:55 2 I&O- Last 24 Hours up to 6 AM 09/10/19 05:59 Intake Total 2103 ml Output Total 2050 ml Balance 53 ml Laboratory Data 24H LABS Laboratory Tests 2 09/09/19 16:30: Bedside Glucose (Misc Panel) 133H 09/09/19 19:55: Bedside Glucose (Misc Panel) 225H 09/09/19 20:03: Nucleated Red Blood Cells % (auto) 0.0 09/10/19 01:54: Nucleated Red Blood Cells % (auto) 0.0 09/10/19 05:47: Nucleated Red Blood Cells % (auto) 0.0, Anion Gap 6L, Glomerular Filtration Rate > 60.0, Calcium Level 8.6L 09/10/19 11:51: Bedside Glucose (Misc Panel) 176H CBC/BMP Laboratory Tests 09/09/19 20:03 09/10/19 01:54 09/10/19 05:47 Microbiology Microbiology 09/07/19 Urine Culture - Final, Complete 09/07/19 Blood Culture - Preliminary, Resulted No Growth after 72 hours. All specime... YEYO DIAZ MD Sep 10, 2019 13:57
[2019-09-10 14:00] VITALS: BP 136/71
[2019-09-10] MEDS ORDERED: LOSARTAN 25 MG TAB PO SCH (21:00)
[2019-09-10 22:00] VITALS: BP 141/78
[2019-09-11 06:00] VITALS: BP 146/88
[2019-09-11 06:15] LABS: HEMOGLOBIN 12.1 g/dl (13.5-17.5); MEAN CORPUSCULAR HEMOGLOBIN 30.6 pg (27.0-33.0); MEAN CORPUSCULAR HGB CONC 34.6 g/dl (32.0-36.5); MEAN CORPUSCULAR VOLUME 88.6 fl (80.0-96.0); PLATELET COUNT, AUTOMATED 149 10^3/uL (150-450); RED BLOOD COUNT 3.95 10^6/uL (4.30-6.10); WHITE BLOOD COUNT 12.6 10^3/uL (4.0-10.0)
[2019-09-11 06:36] LABS: BLOOD UREA NITROGEN 26 MG/DL (7-18); CALCIUM LEVEL 8.7 MG/DL (8.8-10.2); CARBON DIOXIDE LEVEL 28 MEQ/L (21-32); CHLORIDE LEVEL 104 MEQ/L (98-107); CREATININE FOR GFR 1.23 MG/DL (0.70-1.30); GLOMERULAR FILTRATION RATE > 60.0 (>42); GLUCOSE, FASTING 154 MG/DL (70-100); POTASSIUM SERUM 3.9 MEQ/L (3.5-5.1); SODIUM LEVEL 138 MEQ/L (136-145)
--- NOTE | 2019-09-11 08:45 | IPNPDOC ---
Subjective Review oF Systems Chief Complaint The patient is a 74-year-old male admitted with a reason for visit of Renal Hemorrhage, Left. Events since Last Encounter No acute events o/n. No pain. No n/v. No f/c/ns. Objective Physical Examination General Exam: Alert, Cooperative, No Acute Distress ABDOMEN EXAM: Soft, Tenderness (mild LLQ) Skin Exam: Nl turgor and temperature Neuro Exam: Normal Speech Psych Exam: Mental status NL, Mood NL Other physical findings no CVAT Vital Signs/I&O Vital Signs Date Time Temp Pulse Resp B/P (MAP) Pulse Ox O2 Delivery O2 Flow Rate FiO2 09/11/19 06:00 98.2 90 20 146/88 (107) 95 Room Air 09/07/19 17:55 2 I&O- Last 24 Hours up to 6 AM 09/11/19 06:00 Intake Total 1380 ml Output Total 2 ml Balance 1378 ml Laboratory Data Labs 24H Laboratory Tests 2 09/10/19 11:51: Bedside Glucose (Misc Panel) 176H 09/10/19 16:43: Bedside Glucose (Misc Panel) 148H 09/10/19 20:48: Bedside Glucose (Misc Panel) 222H 09/11/19 05:59: Nucleated Red Blood Cells % (auto) 0.0, Anion Gap 6L, Glomerular Filtration Rate > 60.0, Calcium Level 8.7L CBC/BMP Laboratory Tests 09/11/19 05:59 FSBS Laboratory Tests Test 09/10/19 11:51 09/10/19 16:43 09/10/19 20:48 Range/Units Bedside Glucose (Misc Panel) 176 148 222 83-110 MG/DL Microbiology Microbiology 09/07/19 Urine Culture - Final, Complete 09/07/19 Blood Culture - Preliminary, Resulted No Growth after 72 hours. All specime... Assessment/Plan Date Seen The patient was seen on 09/11/19. Patient Summary This is a 74 y/o M admitted for a large left subcapsular hematoma s/p L ESWL on 09/06/19. His Hb has been stable for > 24hrs. Vitals have been stable. He is ok for discharge home. Plan/VTE VTE Prophylaxis Ordered?: No VTE Exclusion Mechanical Proph: N/A:VTE Prophy Ordered VTE Exclusion Pharmacological: Active Bleeding Plan - ok for discharge home - patient instructed not do heavy lifting (> 15lbs) or participate in strenuous activity for 4 wks - discussed w/ patient that he does not require a f/u CT to check for a renal ma ss as he did not have a spontaneous hemorrhage - it was due to the ESWL; in addition he has had recent CT scans that were negative for renal masses - he will f/u in urology clinic as scheduled on 09/26/19 ABHIJIT ALEXANDRE MD Sep 11, 2019 08:44
[2019-09-11] MEDS: allopurinoL 100 MG TAB PO SCH (09:26)
[2019-09-11] MEDS: HumaLOG INSULIN (NovoLOG) PER UNIT SC SCH (09:26)
[2019-09-11] MEDS: ROSUVASTATIN 10 MG TAB (CRESTOR) PO SCH (09:26)
[2019-09-11] MEDS: TAMSULOSIN 0.4 MG CAP PO SCH (09:26)
[2019-09-11 09:28] VITALS: BP 158/88
[2019-09-11] MEDS: atenoloL 50 MG TAB PO SCH (09:28)
--- NOTE | 2019-09-11 11:16 | DS.PDOC ---
Discharge Summary General Date of Admission Sep 06, 2019 at 23:10 Date of Discharge 09/11/19 Specialist/Consultants Involve: ABHIJIT ALEXANDRE MD Discharge Summary PROCEDURES PERFORMED DURING STAY: [None]. DISCHARGE DIAGNOSES: 1. left renal hemorrhage s/p ESWL 2. HTN 3. NIDDM 4. ABLA secondary to left renal hemorrhage COMPLICATIONS/CHIEF COMPLAINT: Renal Hemorrhage, Left. HISTORY OF PRESENT ILLNESS: 74-year-old male who presented with complaints of left-sided 10 out of 10 in severity, sharp flank pain that didn't improve despite taking Percocet at home. The morphine in the ER helped alleviate the pain a little bit. Earlier on in the day he had left extracorporeal shockwave l ithotripsy for ureteral stone. HOSPITAL COURSE: Patient admitted for further evaluation and treatment. Transfused 4 units PRBC due to ABLA form left renal hemorrhage s/p ESWL. Patient seen and examined by urology in consultation. Deemed stable for discharge with outpatient urology follow up. # s/p Left kidney lithotripsy (POD #5) complicated by Acute blood loss anemia 2/2 Subcapsular hematoma of the left kidney with retroperitoneal hemorrhage - hgb stable - o/p follow up with urology and PCP # KANG with CKD stage 3 # Hyperkalemia - resolved - resumed losartan # Leukocytosis suspected 2/2 to acute hematoma # NIDDM2 # HTN - continue atenolol - continue losartan DISCHARGE MEDICATIONS: Please see below. ALLERGIES: Please see below. PHYSICAL EXAMINATION ON DISCHARGE: VITAL SIGNS: Please see below. GENERAL: NAD HEENT: NC/AT, EOMI, PERRL Lungs: CTA B/L Heart: +S1S2, RRR Abd: soft, NT, +BS Ext: no edema LABORATORY DATA: Please see below. ACTIVITY: as per urology - no heavy lifting for 4 weeks, and further eval by urology/PCP DISPOSITION: 01 Home, Self-Care. ITEMS TO FOLLOWUP ON ON OUTPATIENT: 1. PCP in 3-5 days 2. Urology as scheduled 09/26/19 DISCHARGE CONDITION: [Stable]. TIME SPENT ON DISCHARGE: 35 minutes. Vital Signs/I&Os Vital Signs Date Time Temp Pulse Resp B/P (MAP) Pulse Ox O2 Delivery O2 Flow Rate FiO2 09/11/19 09:28 90 158/88 09/11/19 06:00 98.2 20 95 Room Air 09/07/19 17:55 2 I&O- Last 24 Hours up to 6 AM 09/11/19 06:00 Intake Total 1380 ml Output Total 2 ml Balance 1378 ml Laboratory Data Labs 24H Laboratory Tests 2 09/10/19 11:51: Bedside Glucose (Misc Panel) 176H 09/10/19 16:43: Bedside Glucose (Misc Panel) 148H 09/10/19 20:48: Bedside Glucose (Misc Panel) 222H 09/11/19 05:59: Nucleated Red Blood Cells % (auto) 0.0, Anion Gap 6L, Glomerular Filtration Rate > 60.0, Calcium Level 8.7L CBC/BMP Laboratory Tests 09/11/19 05:59 FSBS Laboratory Tests Test 09/10/19 11:51 09/10/19 16:43 09/10/19 20:48 Range/Units Bedside Glucose (Misc Panel) 176 148 222 83-110 MG/DL Microbiology Microbiology 09/07/19 Urine Culture - Final, Complete 09/07/19 Blood Culture - Preliminary, Resulted No Growth after 72 hours. All specime... Discharge Medications Scheduled Allopurinol (Allopurinol) 100 Mg Tab, 300 MG PO DAILY, (Reported) HAS BEEN TAKING 300MG. [facility] SWITCH[facility] TO 100MG BUT HASN'T STARTED YET. Atenolol (Atenolol) 100 Mg Tab, 100 MG PO DAILY, (Reported) Losartan Potassium (Losartan Potassium) 25 Mg Tab, 25 MG PO QHS, (Reported) Metformin HCl (Metformin HCl) 500 Mg Tab, 500 MG PO WM, (Reported) Multivitamins (Thera M Plus Tablet) 1 Tab Tab, 1 TAB PO DAILY, (Reported) Rosuvastatin Calcium (Rosuvastatin Calcium) 40 Mg Tablet, 40 MG PO DAILY, (Reported) Tamsulosin HCl (Flomax) 0.4 Mg Capsule, 0.4 MG PO DAILY, (Reported) 30 MINUTES AFTER BREAKFAST Allergies Coded Allergies: banana (Verified Allergy, Severe, anaphylactic, 09/06/19) TIANNA ZHANG MD Sep 11, 2019 11:16
== END 2019-09-11 11:11 | disposition home or self-care (01) | DRG 920 ==
LOC: M ED 19:22 → M ED INP 23:10 → ENRESERV 09-07 03:52 → M MSPAV 09-07 05:35
PROVIDERS: ADMIT Internal Medicine; ATTEND Internal Medicine
PROC: B4151ZZ Fluoroscopy of Inferior Mesenteric Artery using Low Osmolar Contrast (ICD-10-PCS; 2019-09-07)
PROC: B4171ZZ Fluoroscopy of Left Renal Artery using Low Osmolar Contrast (ICD-10-PCS; 2019-09-07)
PROC: B4191ZZ Fluoroscopy of Lumbar Arteries using Low Osmolar Contrast (ICD-10-PCS; 2019-09-07)
PROC: B4101ZZ Fluoroscopy of Abdominal Aorta using Low Osmolar Contrast (ICD-10-PCS; principal; 2019-09-07 16:40)
PROC: 30233N1 Transfusion of Nonautologous Red Blood Cells into Peripheral Vein, Percutaneous Approach (ICD-10-PCS; 2019-09-08)
DX: N99.840 Postprocedural hematoma of a genitourinary system organ or structure following a genitourinary system procedure (principal); D62 Acute posthemorrhagic anemia; N17.9 Acute kidney failure, unspecified; I12.9 Hypertensive chronic kidney disease with stage 1 through stage 4 chronic kidney disease, or unspecified chronic kidney disease; E78.5 Hyperlipidemia, unspecified; E11.9 Type 2 diabetes mellitus without complications; M10.9 Gout, unspecified; Z87.442 Personal history of urinary calculi; Z87.891 Personal history of nicotine dependence; Z79.899 Other long term (current) drug therapy; Z91.018 Allergy to other foods; E87.5 Hyperkalemia; D72.829 Elevated white blood cell count, unspecified

== ENCOUNTER → 2019-09-21 | Outpatient (REF) | payer MEDICARE, OTHER ==
[2019-09-21 17:31] LABS: HEMATOCRIT 36.9 % (42.0-52.0); HEMOGLOBIN 11.7 g/dl (13.5-17.5); MEAN CORPUSCULAR HEMOGLOBIN 28.8 pg (27.0-33.0); MEAN CORPUSCULAR HGB CONC 31.7 g/dl (32.0-36.5); MEAN CORPUSCULAR VOLUME 90.9 fl (80.0-96.0); PLATELET COUNT, AUTOMATED 339 10^3/uL (150-450); RED BLOOD COUNT 4.06 10^6/uL (4.30-6.10)
[2019-09-21 17:50] LABS: CALCIUM LEVEL 8.7 MG/DL (8.8-10.2); CREATININE FOR GFR 1.51 MG/DL (0.70-1.30); GLOMERULAR FILTRATION RATE 48.2 (>42); POTASSIUM SERUM 4.8 MEQ/L (3.5-5.1)
== END ==
LOC: M LABDRWAD 16:44
PROVIDERS: ATTEND Family Medicine
DX: S37.09 Other injury of kidney (principal); X58.XXXA Exposure to other specified factors, initial encounter

== ENCOUNTER → 2020-03-26 | Outpatient (CLI) | payer MEDICARE, OTHER ==
--- NOTE | 2020-04-03 06:39 | REP ---
KUB ABDOMEN AND PELVIS HISTORY: Kidney stones. COMPARISON: 08/10/2019. TECHNIQUE: Single AP view of the abdomen and pelvis is performed. FINDINGS: There is scattered bowel gas throughout the upper abdomen bilaterally limiting evaluation for underlying renal calculi. There is no evidence of bowel obstruction. Projecting over the lower pole of the left renal shadow, there are 4-5 tiny calcific densities which may represent a cluster of tiny renal calculi, measuring up to 3 mm in diameter. No other definite renal calculi are visualized radiographically. There are several phlebolith in the pelvis. There are mild degenerative changes of the spine. IMPRESSION: There appears to be a cluster of 4-5 tiny calcifications projecting in the region of the lower pole of the left kidney. MTDD
== END ==
LOC: M ADAMS 11:22
PROVIDERS: ATTEND Nurse Practitioner Family
DX: N20.0 Calculus of kidney (principal)

== ENCOUNTER → 2020-07-03 | Outpatient (REF) | payer MEDICARE, OTHER ==
[2020-07-03 17:20] LABS: APPEARANCE, URINE CLEAR (CLEAR); BACTERIA, URINE AUTO NEGATIVE (NEGATIVE); BILIRUBIN, URINE AUTO NEGATIVE (NEGATIVE); BLOOD, URINE BLOOD NEGATIVE (NEGATIVE); COLOR, URINE AMBER (YELLOW); GLUCOSE, URINE (UA) AUTO NEGATIVE (NEGATIVE); KETONE, URINE AUTO NEGATIVE (NEGATIVE); LEUKOCYTE ESTERASE, URINE AUTO NEGATIVE (NEGATIVE); MUCUS, URINE SMALL (NEGATIVE); NITRITE, URINE AUTO NEGATIVE (NEGATIVE); PROTEIN, URINE AUTO NEGATIVE (NEGATIVE); RBC, URINE AUTO 3 /HPF (0-3); SPECIFIC GRAVITY URINE AUTO 1.018 (1.002-1.035); SQUAMOUS EPITHELIAL CELL UR AU 0 /HPF (0-6); WBC, URINE AUTO 2 /HPF (0-3)
== END ==
LOC: M LABSMT 15:11 → M SFHCADAM 15:12
PROVIDERS: ATTEND Nurse Practitioner Women's Health
DX: N20.0 Calculus of kidney (principal)

== ENCOUNTER → 2020-12-17 | Outpatient (REF) | payer MEDICARE, OTHER ==
[~2020-12-17] MED LIST changes: +GABA-282 PO; -GABA-843 PO; -GLUC4CHW19 PO; -LISI-538 PO; +LISI20TA33 PO; +SFHGLU4TA PO
== END ==
LOC: M LAB REF 18:53
PROVIDERS: ATTEND Dermatology
DX: L72.0 Epidermal cyst (principal)

== ENCOUNTER → 2021-01-13 | Outpatient (REF) | payer MEDICARE, OTHER | LOC: M LAB REF 19:24 | PROVIDERS: ATTEND Dermatology | DX: L57.0 Actinic keratosis (principal); L81.4 Other melanin hyperpigmentation ==

== ENCOUNTER → 2021-02-27 | Outpatient (CLI) | payer MEDICARE, OTHER ==
--- NOTE | 2021-02-27 14:47 | REP ---
INDICATION: KIDNEY STONES-CT FIRST. COMPARISON: 03/15/2019. TECHNIQUE: Real-time sonographic evaluation of scrotum and contents performed. FINDINGS: Testicles are normal in size, right testicle measuring 3.7 x 1.4 x 3.0 cm and left testicle 3.6 x 1.9 x 2.9 cm. Echotexture is diffusely heterogeneous. There is no evidence of testicular torsion, blood flow is seen in each testicle with duplex Doppler evaluation. A lobulated cyst is seen in the head of the left epididymis. No solid testicular mass is seen. In the mid to lower left scrotum there is an extratesticular 12 mm calcification. A simple appearing cyst is seen in the right mid testicle medially measuring 1.1 x 0.9 x 1.0 cm. Directly adjacent to that there is a complex cystic structure which is exophytic containing both anechoic areas and a hyperechoic area. This measures 2.2 x 1.0 x 1.8 cm. IMPRESSION: No testicular torsion. 6 mm cyst in the head of the left epididymis. No solid testicular mass. There is a scrotal pleural on the left. There is a simple cyst in the medial aspect of the right testicle 1.1 cm. There is an adjacent exophytic complex cyst 2.2 x 1.0 x 1.8 cm. <Electronically signed by Rogers Carreon > 02/27/21 [id number]
--- NOTE | 2021-02-27 15:32 | REP ---
INDICATION: KIDNEY STONES-CT FIRST. COMPARISON: Ultrasound 01/02/2019. CT today. TECHNIQUE: Real-time sonographic evaluation of the kidneys is performed. FINDINGS: Renal cortical echogenicity pattern is normal bilaterally and contours are smooth. There is no hydronephrosis bilaterally. A calculus in the upper pole the right kidney measures approximately 8 mm, and another in the lower pole the right kidney measures 5 mm. In the upper pole of the left kidney there is a 1.3 cm cyst and in the mid aspect there is a 1.1 cm cyst. Along the posterior aspect of the left kidney there is a complex cystic appearing area representing residual old hematoma, 3.7 x 2.4 x 2.8 cm. The right kidney measures 10.1 x 5.5 x 4.7 cm. Left renal dimensions are 9.9 x 4.4 x 6.2 cm. IMPRESSION: No hydronephrosis. Two subcentimeter calculi in the right kidney. Cystic structures left kidney, with complex cystic area along the posterior left renal cortex representing old residual perinephric hematoma. <Electronically signed by Rogers Carreon > 02/27/21 [id number]
--- NOTE | 2021-02-27 15:33 | REP ---
INDICATION: KIDNEY STONES-CT FIRST. COMPARISON: Ultrasound 01/02/2019, CT today. TECHNIQUE: Real-time sonographic evaluation of urinary bladder performed. FINDINGS: Urinary bladder measures 11.6 x 8.9 x 8.6 cm, total volume 578 cc. No bladder wall mass or thickening is seen. No bladder calculus is seen. Postvoid residual is 71 cc which is 12% of the original volume. Ureteral jets are visualized in the urinary bladder bilaterally with Doppler color evaluation. The prostate is enlarged and heterogeneous, measuring 4.8 x 4.6 x 5.3 cm. IMPRESSION: No bladder mass or calculus. Mild postvoid residual, 12%. Enlarged prostate. <Electronically signed by Rogers Carreon > 02/27/21 0533
== END ==
LOC: M RAD 12:49
PROVIDERS: ATTEND Urology
DX: N50.3 Cyst of epididymis (principal); N44.2 Benign cyst of testis; Q61.02 Congenital multiple renal cysts; N40.0 Benign prostatic hyperplasia without lower urinary tract symptoms; N20.0 Calculus of kidney; R31.0 Gross hematuria; N50.89 Other specified disorders of the male genital organs

== ENCOUNTER → 2021-02-27 | Outpatient (CLI) | payer MEDICARE, OTHER ==
--- NOTE | 2021-02-27 13:55 | REP ---
INDICATION: UNILATERAL INGUINAL HERNIA, INFLAM DISORDER OF SCR COMPARISON: 07/04/2020. TECHNIQUE: CT Scan of the abdomen and pelvis was performed without intravenous contrast. Sagittal and coronal reconstruction images performed. FINDINGS: Lung bases: There is mild fibro atelectatic change. Liver: Few small hypodensities inferiorly in the liver are unchanged, most consistent with cysts. Gallbladder: Cholecystectomy. Spleen: Grossly unremarkable. Adrenals: Normal. Pancreas: Grossly unremarkable.. Kidneys: No hydronephrosis. Ureters demonstrate no dilatation or calculus. Two small subcentimeter intrarenal calculi are again seen on the right. Left posterior perinephric fluid has decreased in size representing residual perinephric hematoma. Small and large bowel: Once again there is a fairly large left inguinal hernia containing a nonobstructed loop of sigmoid colon. This has mildly increased in size. The hernia sac measures approximately 11.0 x 5.4 x 8.7 cm, previously 8.0 x 4.2 x 6.9 cm. There is a tiny umbilical hernia containing noninflamed fat. There are multiple sigmoid and left colonic diverticula present. There is no definite acute diverticulitis. Free fluid: None. Abdominal aorta: No aneurysm. Adenopathy: None. Appendix: Not inflamed. Osseous structures: There are degenerative changes of the spine without compression deformity. Pelvis: No mass. No bladder calculus seen. IMPRESSION: Large left inguinal hernia contains nonobstructed sigmoid colon, there hernia sac has mildly increased in size when compared to the prior study as discussed above. Continued decreased size and resolution of left perinephric hematoma. <Electronically signed by Rogers Carreon > 02/27/21 [id number]
--- NOTE | 2021-02-27 15:35 | REP ---
INDICATION: UNILATERAL INGUINAL HERNIA, INFLAM DISORDER OF SCR-CT FIRST. COMPARISON: 03/15/2019. TECHNIQUE: Real-time sonographic evaluation of the bilateral inguinal regions performed. FINDINGS: There is a large left inguinal hernia containing fat and sigmoid colon. This is not reducible. No right inguinal hernia is seen. IMPRESSION: Large non reducible left inguinal hernia containing fat and sigmoid colon. <Electronically signed by Rogers Carreon > 02/27/21 1532
== END ==
LOC: M RAD 13:04
PROVIDERS: ATTEND Surgery
DX: K40.31 Unilateral inguinal hernia, with obstruction, without gangrene, recurrent (principal); N49.2 Inflammatory disorders of scrotum; N50.3 Cyst of epididymis; N44.2 Benign cyst of testis; Q61.02 Congenital multiple renal cysts; N40.0 Benign prostatic hyperplasia without lower urinary tract symptoms; N20.0 Calculus of kidney; R31.0 Gross hematuria; N50.89 Other specified disorders of the male genital organs

== ENCOUNTER → 2021-03-25 | Outpatient (REF) | payer MEDICARE, OTHER ==
[~2021-03-25] MED LIST changes: +POTA10808 PO
[2021-03-25 12:45] LABS: HEMATOCRIT 43.6 % (42.0-52.0); HEMOGLOBIN 14.5 g/dl (13.5-17.5); MEAN CORPUSCULAR HEMOGLOBIN 29.9 pg (27.0-33.0); MEAN CORPUSCULAR HGB CONC 33.3 g/dl (32.0-36.5); MEAN CORPUSCULAR VOLUME 89.9 fl (80.0-96.0); PLATELET COUNT, AUTOMATED 177 10^3/uL (150-450); RED BLOOD COUNT 4.85 10^6/uL (4.30-6.10); WHITE BLOOD COUNT 9.2 10^3/uL (4.0-10.0)
[2021-03-25 13:23] LABS: ALBUMIN 3.7 GM/DL (3.2-5.2); BILIRUBIN,TOTAL 1.4 MG/DL (0.2-1.0); CALCIUM LEVEL 9.5 MG/DL (8.8-10.2); CREATININE FOR GFR 1.43 MG/DL (0.70-1.30); GLOMERULAR FILTRATION RATE 51.2 (>42); POTASSIUM SERUM 4.5 MEQ/L (3.5-5.1); TOTAL PROTEIN 7.1 GM/DL (6.4-8.2)
== END ==
LOC: M LABDRWAD 12:29
PROVIDERS: ATTEND Family Medicine
DX: Z01.818 Encounter for other preprocedural examination (principal)

== ENCOUNTER → 2021-04-02 | Outpatient (CLI) | payer MEDICARE, OTHER | LOC: M LABSMTC 09:25 | PROVIDERS: ATTEND Anesthesiology | DX: Z01.818 Encounter for other preprocedural examination (principal); Z11.52 Encounter for screening for COVID-19 ==

== ENCOUNTER 2021-04-07 11:34 | Day surgery (SDC) | payer MEDICARE, OTHER ==
[~2021-04-07] VITALS: Ht 182.9 cm; Wt 86.5 kg
[~2021-04-07 11:34] MED LIST changes: +BUPIVACAINE HCL 0.25% 30ML VIAL As Ordered ONE; +CelecoXIB 400 MG CAP PO ONE; +LIDOCAINE 1% MDV 20ML VIAL SQ PRN; +LIDOCAINE 1% SDV 30ML VIAL As Ordered ONE; +LIDOCAINE 2% 100MG/5ML SDV (FOR ANES.) As Ordered ONE; +LR 1,000 ML IV ONE; +MIDAZOLAM INJ 2MG/2ML VIAL (J2250 PER 1MG) As Ordered ONE; +ROCURONIUM BROMIDE 50 MG/5 ML VIAL As Ordered ONE; +fentaNYL 100 MCG/2 ML INJECTION (J3010) As Ordered ONE; +propofoL 200 MG/20 ML VIAL As Ordered ONE
[2021-04-07] MEDS ORDERED: LIDOCAINE 1% SDV 30ML VIAL As Ordered ONE (11:56)
[2021-04-07] MEDS ORDERED: BUPIVACAINE HCL 0.25% 30ML VIAL As Ordered ONE (11:56)
[2021-04-07] MEDS: ceFAZolin SOD 2 GM in IV 1 EA IV ONE ×2 (12:28→12:36)
[2021-04-07] MEDS ORDERED: dexameTHASONE 4 MG/ML 1ML VIAL (J1100 PER 1MG) As Ordered ONE (12:44)
[2021-04-07] MEDS ORDERED: ONDANSETRON 4MG/2ML VIAL As Ordered ONE (12:45)
[2021-04-07] MEDS ORDERED: fentaNYL 100 MCG/2 ML INJECTION (J3010) As Ordered ONE (13:02)
[2021-04-07] MEDS ORDERED: ROCURONIUM BROMIDE 50 MG/5 ML VIAL As Ordered ONE (13:05)
[2021-04-07] MEDS ORDERED: SUGAMMADEX SODIUM 500 MG/5 ML VIAL (BRIDION) As Ordered ONE (13:07)
[2021-04-07] MEDS ORDERED: LABETALOL 100MG/20ML VIAL As Ordered ONE ×2 (13:08→17:01)
[2021-04-07] MEDS ORDERED: ACETAMINOPHEN 1000MG 100ML IV BTL (OFIRMEV) (J0131 PER 10MG) As Ordered ONE (13:27)
[2021-04-07] MEDS ORDERED: HYDROmorphone HCL 2 MG/ML 1ML VIAL As Ordered ONE (14:26)
[2021-04-07] MEDS ORDERED: LR 1,000 ML IV SCH (17:05)
[2021-04-07] MEDS ORDERED: fentaNYL 100 MCG/2 ML INJECTION (J3010) IV PRN (17:05)
[2021-04-07] MEDS ORDERED: LABETALOL 100MG/20ML VIAL IV PRN (17:05)
[2021-04-07] MEDS ORDERED: METOCLOPRAMIDE INJ 10MG/2ML VIAL (J2765 PER 1) IV PRN (17:05)
[2021-04-07] MEDS ORDERED: oxyCODONE 5MG TAB PO PRN (17:05)
[2021-04-07] MEDS ORDERED: ONDANSETRON 4MG/2ML VIAL IV PRN (17:05)
[2021-04-07] MEDS ORDERED: KETOROLAC 30 MG/ML 1ML VIAL IV PRN (17:30)
[2021-04-07] MEDS ORDERED: PERCOCET 5MG/325MG TAB PO PRN (17:30)
[2021-04-07 18:40] VITALS: BP 150/70
--- NOTE | 2021-04-12 13:21 | ROOPDOC ---
[facility] Report Of Operation Report of Operation DATE OF PROCEDURE: 04/07/21 PREPROCEDURE DIAGNOSES: Recurrent left inguinal scrotal hernia. POSTPROCEDURE DIAGNOSES: Recurrent left inguinal scrotal hernia. PROCEDURE PERFORMED: Robotic assisted laparoscopic transabdominal preperitoneal repair (redo). SURGEON: Tyson Rae MD YARD CLEANER: Sammie Pruitt, CORROSION TECHNICIAN Ms. Pruitt assisted me with placement of ports, management of the instruments and robotic arms on the field while I was at the surgeon's console including exchange of instruments, placement of mesh and sutures and the removal, closing of the port sites ANESTHESIA: General endotracheal anesthesia. ESTIMATED BLOOD LOSS: Approximately 20 mL. COMPLICATIONS: None. REMARKS: Patient is a 75-year-old male who 2 years ago I performed an rTAPP with a 15 x 10 ProGrip mesh for an inguinal scrotal hernia in the left side. He initially seemed to have done well from this. A few months after the repair he had a retroperitoneal hematoma from bleeding after ESWL and subsequently after that noted recurrence of the hernia and he has proceeded and became larger than it was prior to the repair reaching down to the scrotum and the part of past month or so not being able to be reduced back in the abdomen. He presents today for redo repair of his large left inguinal scrotal hernia. FINDINGS: Incarcerated sigmoid colon within the inguinal canal that was reduced intraoperatively. The inferior lateral edge of the prior mesh was invaginated into the inguinal canal. Moderate sized lipoma removed. Be able to do a safe dissection, a large area of preperitoneal dissection was created extending to the right side and up to the mid rectus muscle superiorly and beyond the ASIS laterally. Portion of the mesh was removed but mostly this was well incorporated specially at the medial and superior edges. SPECIMENS REMOVED: PROCEDURE NOTE: a 17 x 12 cm 3d Max MID Anatomical Mesh is placed. DESCRIPTION OF PROCEDURE: Patient received 2 g of Ancef IV preoperatively for wound prophylaxis. Patient was brought to the operating room, placed supine on the operating table. Compression boots placed in both lower extremities for DVT prophylaxis. After adequate general anesthesia started, he was positioned on the table with both arms tucked. A robert catheter placed without difficulty. His abdomen and groin/pelvic area then prepped and draped in the usual sterile fashion. We paused for a surgical timeout using both pre-incision safety checklist to verify correct patient, procedure site and additional clinical information prior to beginning the procedure Entry to the abdomen done through a small incision at the mid abdominal area towards the left side as I am anticipating a wider dissection than normal given the recurrent hernia. A Veress needle is inserted on a controlled fashion. CO2 insufflation started to pressure 15 mmHg. Using the same incision an 8 mm robotic trochard was then placed under direct vision of a 5mm laparoscope. The insertion site was inspected for injury and none was found. Patient was then positioned on a 10 degreeTrendelenburg position for adequate view of the hernia defect. Again anticipating need for wider dissection I placed 3 8mm working ports; 2 to the right of the camera trocar in 1 to the left, each port about 10 cms apart. The Arthena robot tower was then positioned in place and the trochars docked onto the robot. The robotic instruments were placed and positioned. I then unscrubbed and took control of the camera and the laparoscopic instruments at the surgeon's console. 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 I used a Tip Up fenestrated grasper then later exchanged for a prograsp on the additional retracting arm. On initial entry the sigmoid colon remains incarcerated within the inguinal canal. The help of my logistics assistant externally manipulating the hernia I was able to reduce the sigmoid colon into the abdomen. The attachments to the canal and sac was then lysed sharply with cautery to fully free up the sigmoid colon and prevent it from retracting back into the canal. I then proceeded dissecting the preperitoneal space. I could not make up the superior edge of the prior mesh so I started way up I just a few centimeters below the umbilicus at the level of the mid umbilical ligament. The umbilical ligament was divided. I actually came through the transversalis fascia to be able to visualize the course of the rectus muscle as I was concerned about entering the inferior epigastric artery. I widely dissected a peritoneal flap past the midline and symphysis pubis and towards the right umbilical ligament and past the anterior superior iliac spine laterally. As I approached the large defect at the internal ring I begun encountering the location of the mesh so I stayed under Neath the mesh and kept the mesh up on the abdominal wall. I was able to find the plane medially at the level of the opposite umbilical defect and I carried this on to the pubic tubercle identifying the symphysis pubis. I was able to come up on the medial side of the progrip mesh delineated by its green coloring. Again I left this intact, adhered to the abdominal wall. I brought down all the fibrotic attachments and fatty tissue with the bladder and peritoneal flap leaving the mesh and tacked as I approach back to the inguinal canal laterally to avoid injury to the iliac vessels and inferior epigastric vessels. As I further defined the peritoneal flap and course of the mesh it seems evident to me that the medial and inferior side of the mesh has been swallowed into the canal which has caused the recurrence. The major location of the mesh seems to be adequate at the level of the symphysis pubis. Again I further defined the lateral space past the mesh and internal opening of the inguinal canal. I was using the underside of the flap which was the superior peritoneal covering of the internal ring as my guide so to avoid injury to the testicular vessels and duct as well as the vascular structures. Once the course of the mesh is better defined to try to find a plane between the peritoneal flap and the mesh to see if I can reduce the peritoneal flap or hernia sac covering the inguinal canal but the mesh same so well adhered. Thus I decided to divide the lower portion of the mesh to get into the superior peritoneal covering to the hernia sac. Once I was able to do so I was able to slowly but gradually reduce the hernia sac from the skaggs of the inguinal canal. As expected there is a lot of fibrotic attachments which made the dissection reduction of the sac tedious and difficult. I could make up the course of the testicular vessels and ductus deferens from the underside of the peritoneum so I used this as my guide. Once I was approaching the area of the iliac vessels I again slowed down. I continued dividing the mesh to get into the correct plane and once I was past the vessels I stop dividing the mesh and left most of this intact, adhered to the abdominal wall. The cut off portion of the mesh stayed with the peritoneal flap/hernia sac. I completed my dissection freeing up the last attachments of the peritoneal flap. The testicular vessels and ductus deferens were breathalyzed to allow for deeper placement of the mesh. I made sure I divide the remaining attachments that the spaces of Bogros and retches are fully connected. I brought down the bladder farther beyond the lower border of the pubic arch and dissected well into the right side of the pubic arch. This allowed me to get into a good amount of space for placement of a wider mesh. With a wide dissection and large amount of empty space in the inguinal canal I am anticipating that the patient will form a seroma. I had my logistics assistant placed a 5 mm port through the inguinal canal and they placed the 7 flat JORGE ALBERTO drain in the inguinal canal above the mesh placement. Since I had a recurrence with a lightweight mesh I chose a mid weight polypropylene mesh. I used a 3D max XL mid weight mesh. This was measuring 17 x 12 cm. My logistics assistant placed this into the abdominal cavity and I laid the mesh centered onto the opening of the inguinal canal. I secured this in several points along the symphysis pubis, pubic tubercle and Ernie's ligament also at the rectus muscle superiorly at the medial edge. Also to keep the mesh adhered to the abdominal wall, I sprayed Tisseel to the interface of the mesh and abdominal wall. I checked for the adequacy of the flap before closing this making sure that the mesh is not lifted up. The peritoneal opening was closed with 2 running sutures of 3 OV lock. There is a good defect to the peritoneal flap from my dissection likewise from thinning when the attachments of the sigmoid colon was divided. This was closed with a separate 3 OV lock suture. To allow for decreased tension. I decreased my pneumoperitoneum to as low as 8 mmHg. I then surveyed the abdomen and pelvis for any signs of injury. The instruments were removed. The abdomen was deflated. All ports were removed. The skin incisions were closed with 4-0 Monocryl in subcuticular fashion. The drain secured to the skin with 2 O Vicryl. The incisions were covered with Dermabond. The port sites were again infiltrated with local anesthesia. An ilioinguinal nerve block was also performed. Patient was promptly awakened, extubated and brought to the recovery room stable Count of sponges and instruments were verified correct. TYSON RAE MD Apr 12, 2021 13:21
== END 2021-04-07 18:53 | disposition home or self-care (01) ==
LOC: M SDC 11:34
PROVIDERS: ATTEND Surgery
DX: K40.91 Unilateral inguinal hernia, without obstruction or gangrene, recurrent (principal); I10 Essential (primary) hypertension; E78.5 Hyperlipidemia, unspecified; E11.9 Type 2 diabetes mellitus without complications; Z91.018 Allergy to other foods; Z79.82 Long term (current) use of aspirin; Z79.84 Long term (current) use of oral hypoglycemic drugs; Z79.899 Other long term (current) drug therapy; Z87.891 Personal history of nicotine dependence
CPT/HCPCS: 49651; C1781; J0131; J0690; J1100; J1170; J2250; J2405; J3010; S2900

== ENCOUNTER 2021-05-16 10:40 | Emergency (ER) | payer MEDICARE, OTHER ==
[~2021-05-16] VITALS: Ht 182.9 cm; Wt 86.4 kg
[~2021-05-16 10:40] MED LIST changes: -BUPIVACAINE HCL 0.25% 30ML VIAL As Ordered ONE; -CelecoXIB 400 MG CAP PO ONE; -LIDOCAINE 1% MDV 20ML VIAL SQ PRN; -LIDOCAINE 1% SDV 30ML VIAL As Ordered ONE; -LIDOCAINE 2% 100MG/5ML SDV (FOR ANES.) As Ordered ONE; -LR 1,000 ML IV ONE; -MIDAZOLAM INJ 2MG/2ML VIAL (J2250 PER 1MG) As Ordered ONE; -ROCURONIUM BROMIDE 50 MG/5 ML VIAL As Ordered ONE; -fentaNYL 100 MCG/2 ML INJECTION (J3010) As Ordered ONE; -propofoL 200 MG/20 ML VIAL As Ordered ONE
--- OUTSIDE RECORDS SUMMARY | 2021-05-16 10:50 | CCD | Continuity of Care Document ---
Author Author Ravin RAE MD Organization Unknown Address [address] [facility] [address] [place] [address] Phone [phone] Care Team Providers Care Business Integration Manager Name Role Phone Kalen Zhu M.D. AUTM [phone] Problems Active Problems Provider Date Essential hypertension Onset: 12/15/2018 Social History Type Date Description Comments Sex Unknown ETOH Use 1-2 A Month Recreational Drug Use Denies Drug Use Tobacco Use Start: Unknown End: Unknown Patient is a former smoker 1/2 PPD for 8 years, Quit 1971 Allergies, Adverse Reactions, Alerts Description No Known Drug Allergies Medications Active Medications SIG Qnty Indications Ordering Provide r Date Allopurinol 100mg Tablets 1 by mouth every day Unknown Losartan Potassium 25mg Tablets once a day Unknown Metformin HCL 500mg Tablets 1 by mouth three times a day Unknown Rosuvastatin Calcium 40mg Tablets once a day Unknown Aspir-Low 81mg Tablets DR janessa teixeira day Unknown Centrum Silver Adult 50+ Adult 50 Tablets once a day Unknown Gabapentin 400mg Capsules 3 X day day for back pain Unknown Atenolol 100mg Tablets 1 tab by mouth every day Unknown Potassium Citrate ER 10Meq (1080 mg) Tablets ER 1 tab by mouth every day Unknown Immunizations Description No Information Available Vital Signs Date Vital Result Comment 03/12/2021 9:35am BP Systolic 148 mmHg BP Diastolic 74 mmHg Body Temperature 98.5 F Height 72 inches 6'0" Weight 194.25 lb BMI (Body Mass Index) 26.3 kg/m2 [place] Body Weight 178 lb Weight 88.112 kg BSA (Body Surface Area) 2.10 m2 02/24/2021 9:08am BP Systolic 165 mmHg BP Diastolic 73 mmHg Heart Rate 62 /min Body Temperature 97.5 F Height 72 inches 6'0" Weight 191.50 lb BMI (Body Mass Index) 26.0 kg/m2 [place] Body Weight 178 lb Weight 86.864 kg BSA (Body Surface Area) 2.09 m2 Results Description No Information Available Procedures Date Code Description Status 02/24/2021 30220 Office/Outpatient Established Lo w MDM 20-29 Min Completed Medical Devices Description No Information Available Encounters Type Date Location Provider Dx Diagnosis Office Visit 02/24/2021 9:00a [facility] Edu nalini Rae MD K40.31 Unilateral inguinal hernia, w obst, w/o gangrene, recurrent Assessments Date Code Description Provider 02/24/2021 K40.31 Recurrent left inguinal hernia E mounika Rae MD Plan of Treatment 02/24/2021 - Tyson Rae MD* K40.31 Recurrent left inguinal hernia* Comments:* Patient has a recurrence after transabdominal preperitoneal repair of an inguinal scrotal hernia that was containing sigmoid colon back then. I reviewed my notes as well as the photos that I took during the surgery and likewise reviewed with him his postoperative course. He did not really have any significant seroma postoperatively. And he was doing well. He noted this recurred less than a year from the surgery which may be secondary to clamp shelling or folding of the mesh or even inadequate mesh coverage given that this was an inguinal scrotal hernia. He definitely has recurrence on examination and I seem to be picking up a medial recurrence also aside from the indirect herniation. I would like to get a CT abdomen and pelvis to further elucidate the anatomy likewise try to pickle solution maker or my mesh is. He does not have any paresthesias or discomfort from the save from the fact that this was getting enlarged and causing him the discomfort. I feel a small nodularity on the left testicle at the head of the testis. We will also get an ultrasound of the testis and likewise document blood supply to the left testicle. I will see him back after the study to discuss operative planning whether it be an open or laparoscopic repair depending on the findings on those imaging.Follow-up after study. Functional Status Description No Information Available Mental Status Description No Information Available Referrals Description No Information Available
--- OUTSIDE RECORDS SUMMARY | 2021-05-16 10:50 | CCD | Continuity of Care Document ---
Author Author Ravin RAE MD Organization Unknown Address [address] [facility] [address] [place] [address] Phone [phone] Care Team Providers Care Tin Dipper Name Role Phone Kalen Zhu M.D. AUTM [phone] Problems Active Problems Provider Date Essential hypertension Onset: 12/15/2018 Social History Type Date Description Comments Sex Unknown ETOH Use 1-2 A Month Recreational Drug Use Denies Drug Use Tobacco Use Start: Unknown End: Unknown Patient is a former smoker 1/2 PPD for 8 years, Quit 1971 Allergies and adverse reactions Description No Known Drug Allergies Medications Active Medications SIG Qnty Indications Ordering Provide r Date Hydrocodone Bitartrate/Acetaminophen 5-325mg Tablets 1 tabs by mouth every 6 hours as needed pain 20tabs Tyson Rae MD 04/03/2021 Allopurinol 100mg Tablets 1 by mouth every [...] Available Vital Signs Date Vital Result Comment 04/14/2021 3:30pm BP Systolic 170 mmHg BP Diastolic 80 mmHg Body Temperature 98.3 F Height 72 inches 6'0" Weight 190.00 lb BMI (Body Mass Index) 25.8 kg/m2 [place] Body Weight 178 lb Weight 86.184 kg BSA (Body Surface Area) 2.08 m2 03/12/2021 9:35am BP Systolic 148 mmHg BP Diastolic 74 mmHg Body Temperature 98.5 F Height 72 inches 6'0" Weight 194.25 lb BMI (Body Mass Index) 26.3 kg/m2 [place] Body Weight 178 lb Weight 88.112 kg BSA (Body Surface Area) 2.10 m2 Results Test Acquired Date Facility Test Result H/L Range Note Laboratory test finding 04/07/2021 [facility] [address] [place] [address] [phone] Bedside Glucose 90 mg/dL Normal 83-110 Procedures Date Code Description Status 04/07/2021 07718 Laparoscopy, Repair Recurrent In guinal Hernia Completed 03/12/2021 60118 Office/Outpatient Established Lo w MDM 20-29 Min Completed 02/24/2021 08200 Office/Outpatient Established Lo w MDM 20-29 Min Completed Medical Devices Description No Information Available Encounters Type Date Location Provider Dx Diagnosis Office Visit 04/14/2021 3:30p [facility] Aydin Rae MD K40.31 Unilateral inguinal hernia, w obst, w/o gangrene, recurrent K40.91 Unilateral inguinal hernia, w/o obst or gangrene, recurrent Z48.815 Encntr for surgical aftcr fo llowing surgery on the dgstv sys Office Visit 03/12/2021 9:45a [facility] Aydin Rae MD K40.91 Unilateral inguinal hernia, w/o obst or gangrene, recurrent Office Visit 02/24/2021 9:00a [facility] Aydin Rae MD K40.31 Unilateral inguinal hernia, w obst, w/o gangrene, recurrent Assessments Date Code Description Provider 04/14/2021 K40.31 Unilateral inguinal hernia, with obstruction, without gangrene, recurrent Tyson Rae MD 04/14/2021 K40.91 Recurrent left inguinal hernia E mounika Rae MD 04/14/2021 Z48.815 Encounter for surgic al aftercare following surgery on the digestive system Tyson Rae MD 04/07/2021 K40.31 Unilateral inguinal hernia, with obstruction, without gangrene, recurrent Tyson Rae MD 03/12/2021 K40.91 Recurrent left inguinal hernia E mounika Rae MD 02/24/2021 K40.31 Recurrent left inguinal hernia E mounika Rae MD Plan of Treatment Future Appointment(s):* 05/19/2021 9:00 am - Tyson Rae MD at [facility] 04/14/2021 - Tyson Rae MD* K40.31 Unilateral inguinal hernia, with obstruction, without gangrene, recurrent * K40.91 Recurrent left inguinal hernia* Comments:* Patient is doing well following moderately difficult redo transabdominal preperitoneal repair of his recurrent left inguinal scrotal hernia. At the time from repair the sigmoid colon remained chronically incarcerated. The inferior lateral portion of the mesh was swallowed into the large defect and essentially a blown out inguinal canal promoting the recurrence. A larger 17 x 12 mid weight polypropylene mesh (3D max XL mid) was placed instead of a lightweight mesh (progrip mesh). I also secured the mesh at several areas. I have discontinued his drain. He is not showing any significant hematoma or seroma formation on the groin or scro deysi. He does have some mild swelling of the testicle I think but no significant hydrocele I could feel. No significant paresthesia.I instructed him to continue with light at most moderate activity but still no heavy lifting. He anticipates to be pushing a snow thrower during winter as this most strenuous activity and I think he should be able to do that when the time comes.Follow-up with me in 1 month. * Z48.815 Encounter for surgical aftercare following surgery on the digestive system Functional Status Description No Information Available Mental Status Description No Information Available Referrals Description No Information Available
--- OUTSIDE RECORDS SUMMARY | 2021-05-16 10:50 | CCD | Continuity of Care Document ---
Author Author Ravin RAE MD Organization Unknown Address [address] [facility] [address] [place] [address] Phone [phone] Care Team Providers Care Manager E Commerce Name Role Phone Kalen Zhu M.D. AUTM [phone] Problems Active Problems Provider Date Essential hypertension [...] lb BMI (Body Mass Index) 26.3 kg/m2 [place] Body Weight 178 lb Weight 88.112 kg BSA (Body Surface Area) 2.10 m2 02/24/2021 9:08am BP Systolic 165 mmHg BP Diastolic 73 mmHg Heart Rate 62 /min Body Temperature 97.5 F Height 72 inches 6'0" Weight 191.50 lb BMI (Body Mass Index) 26.0 kg/m2 [place] Body Weight 178 lb Weight 86.864 kg BSA (Body Surface Area) 2.09 m2 Results Test Acquired Date Facility Test Result H/L Range Note Laboratory test finding 04/07/2021 [facility] Main Lab [address] [place] [id number] [phone] Bedside Glucose 90 mg/dL Normal 83-110 Procedures Date Code Description Status 03/12/2021 49879 Office/Outpatient Established Lo w MDM 20-29 Min Completed 02/24/2021 20969 Office/Outpatient Established Lo w MDM 20-29 Min Completed Medical Devices Description No Information Available Encounters Type Date Location Provider Dx Diagnosis Office Visit 03/12/2021 9:45a [facility] Aydin Rae MD K40.91 Unilateral inguinal hernia, w/o obst or gangrene, recurrent Office Visit 02/24/2021 9:00a [facility] Aydin Rae MD K40.31 Unilateral inguinal hernia, w obst, w/o gangrene, recurrent Assessments Date Code Description Provider 03/12/2021 K40.91 Recurrent left inguinal hernia E mounika Rae MD 02/24/2021 K40.31 Recurrent left inguinal hernia E mounika Rae MD Plan of Treatment Future Appointment(s):* 04/20/2021 9:15 am - SHELDON Chappell at [facility] 03/12/2021 - Tyson Rae MD* K40.91 Recurrent left inguinal hernia* Comments:* Patient has a recurrence of his left inguinal scrotal hernia and this is containing sigmoid colon on imaging. Interestingly he had ESWL for left kidney stones performed months after I did his initial left inguinal scrotal hernia repair. I went back to the imaging on that and he did not have a recurrence yet that is visible periods of some how in between that time and today the mesh got disrupted. Vicente fernandez think it is more in the lateral aspect of the mesh where the preperitoneal fat can migrate behind the mesh and disrupt the coverage allowing return of the hernia. Given the size of the hernia I think a transabdominal preperitoneal approach via robotic assisted laparoscopic surgery would be warranted once more. I explained to him that I plan to do a wider dissection and probably will place a medium weight mesh instead of the light weight mesh that I initially placed with bigger overlap. A controversial issue is whether to close or partially close the defect to allow for better interface between the mesh and the abdominal wall. The fear is we may catch he ilioinguinal nerve when he bunched up the muscles and close it causing chronic pain.I explained to them that expect this to be a longer surgery because this is a redo. There is higher chances of injury to nearby structures with the presence of prior mesh. The issue 2 is what to do with the previous mesh and all depends on the state of the measure how well incor porated or not incorporated this from surrounding tissues especially the vital tissues and vascular structures including the epigastric artery and the iliac vessels as well as the bladder. Most of the times we can continue to use his as part of the posterior peritoneal flap. There is a greater risk of entering the testicular ducts and vessels. Also I expect a higher chance of developing significant hematoma and seroma so most of the time I will leave a drain towards the scrotum. His questions and concerns were addressed at this time and consent has been obtained.We will asked the help of his primary doctor for optimization of his chronic comorbidities. Functional Status Description No Information Available Mental Status Description No Information Available Referrals Description No Information Available
--- OUTSIDE RECORDS SUMMARY | 2021-05-16 10:50 | CCD | Continuity of Care Document ---
Author Author Ravin RAE MD Organization Unknown Address [address] [facility] [address] [place] [address] Phone [phone] Care Team Providers Care Network Developer Name Role Phone Kalen Zhu M.D. AUTM [phone] Problems Active Problems Provider Date Essential hypertension [...] lb BMI (Body Mass Index) 25.8 kg/m2 [place] Body Weight 178 lb Weight 86.184 kg BSA (Body Surface Area) 2.08 m2 03/12/2021 9:35am BP Systolic 148 mmHg BP Diastolic 74 mmHg Body Temperature 98.5 F Height 72 inches 6'0" Weight 194.25 lb BMI (Body Mass Index) 26.3 kg/m2 [place] Body Weight 178 lb Weight 88.112 kg BSA (Body Surface Area) 2.10 m2 Results Test Acquired Date Facility Test Result H/L Range Note Laboratory test finding 04/07/2021 [facility] Main Lab [address] [place] [address] [phone] Bedside Glucose 90 mg/dL Normal 83-110 Procedures Date Code Description Status 04/07/2021 37860 Laparoscopy, Repair Recurrent In guinal Hernia Completed 03/12/2021 71492 Office/Outpatient Established Lo w MDM 20-29 Min Completed 02/24/2021 23963 Office/Outpatient Established Lo w MDM 20-29 Min Completed Medical Devices Description No Information Available Encounters Type Date Location Provider Dx Diagnosis Office Visit 03/12/2021 9:45a [facility] Aydin Rae MD K40.91 Unilateral inguinal hernia, w/o obst or gangrene, recurrent Office Visit 02/24/2021 9:00a [facility] Aydin Rae MD K40.31 Unilateral inguinal hernia, w obst, w/o gangrene, recurrent Assessments Date Code Description Provider 04/07/2021 K40.31 Unilateral inguinal hernia, with obstruction, without gangrene, recurrent Tyson Rae MD 03/12/2021 K40.91 Recurrent left inguinal hernia E mounika Rae MD 02/24/2021 K40.31 Recurrent left inguinal hernia E mounika Rae MD Plan of Treatment Future Appointment(s):* 05/19/2021 9:00 am - Tyson Rae MD at [facility] 03/12/2021 - Tyson Rae MD* K40.91 Recurrent [...]
--- OUTSIDE RECORDS SUMMARY | 2021-05-16 10:50 | CCD | Continuity of Care Document ---
Author Author Ravin RAE MD Organization Unknown Address [address] [facility] [address] [place] [address] Phone [phone] Care Team Providers Care Clinical Engineering Manager Name Role Phone Kalen Zhu M.D. AUTM [phone] Problems Active Problems Provider Date Essential hypertension [...] lb BMI (Body Mass Index) 25.8 kg/m2 [place] Body Weight 178 lb Weight 86.184 kg BSA (Body Surface Area) 2.08 m2 03/12/2021 9:35am BP Systolic 148 mmHg BP Diastolic 74 mmHg Body Temperature 98.5 F Height 72 inches 6'0" Weight 194.25 lb BMI (Body Mass Index) 26.3 kg/m2 [place] Body Weight 178 lb Weight 88.112 kg BSA (Body Surface Area) 2.10 m2 Results Test Acquired Date Facility Test Result H/L Range Note Laboratory test finding 04/07/2021 [facility] Main Lab [address] [place] [address] [phone] Bedside Glucose 90 mg/dL Normal 83-110 Procedures Date Code Description Status 03/12/2021 46141 Office/Outpatient Established Lo w MDM 20-29 Min Completed 02/24/2021 32445 Office/Outpatient Established Lo w MDM 20-29 Min [...] 04/20/2021 9:15 am - SHELDON Chappell at [facility] 03/12/2021 - Tyson Rae MD* K40.91 [...]
--- OUTSIDE RECORDS SUMMARY | 2021-05-16 10:51 | CCD | Continuity of Care Document ---
Author Author Ravin RAE MD Organization Unknown Address [address] [facility] [address] [place] [address] Phone [phone] Care Team Providers Care Wing Commander Name Role Phone Kalen Zhu M.D. AUTM [phone] Problems Active Problems Provider Date Essential hypertension [...] Available Vital Signs Date Vital Result Comment 02/24/2021 9:08am BP Systolic 165 mmHg BP Diastolic 73 mmHg Heart Rate 62 /min Body Temperature 97.5 F Height 72 inches 6'0" Weight 191.50 lb BMI (Body Mass Index) 26.0 kg/m2 [place] Body Weight 178 lb Weight 86.864 kg BSA (Body Surface Area) 2.09 m2 04/04/2019 8:32am BP Systolic 132 mmHg BP Diastolic 80 mmHg Height 72 inches 6'0" Weight 197.38 lb BMI (Body Mass Index) 26.8 kg/m2 [place] Body Weight 178 lb Weight 89.529 kg BSA (Body Surface Area) 2.12 m2 Results Description No Information Available Procedures Date Code Description Status 02/24/2021 22309 Office/Outpatient Established Lo w MDM 20-29 Min Completed Medical Devices Description No Information Available Encounters Type Date Location Provider Dx Diagnosis Office Visit 02/24/2021 9:00a [facility] nalini Rae MD K40.31 Unilateral inguinal hernia, w obst, w/o gangrene, recurrent Assessments Date Code Description Provider 02/24/2021 K40.31 Recurrent left inguinal hernia E mounika Rae MD Plan of Treatment Future Appointment(s):* 03/12/2021 9:45 am - Tyson Rae MD at [facility] 02/24/2021 - Tyson Rae MD* K40.31 Recurrent [...] further elucidate the anatomy likewise try to fruit picker or my mesh is. He does not [...]
--- OUTSIDE RECORDS SUMMARY | 2021-05-16 10:51 | CCD | Continuity of Care Document ---
Author Author Ravin RAE MD Organization Unknown Address [address] [facility] [address] [place] [address] Phone [phone] Care Team Providers Care Rubber Molder Name Role Phone Kalen Zhu M.D. AUTM [phone] Problems Active Problems Provider Date Essential hypertension [...] lb BMI (Body Mass Index) 26.0 kg/m2 [place] Body Weight 178 lb Weight 86.864 kg BSA (Body Surface Area) 2.09 m2 04/04/2019 8:32am BP Systolic 132 mmHg BP Diastolic 80 mmHg Height 72 inches 6'0" Weight 197.38 lb BMI (Body Mass Index) 26.8 kg/m2 [place] Body Weight 178 lb Weight 89.529 kg BSA (Body Surface Area) 2.12 m2 Results Description No Information Available Procedures Description No Information Available Medical Devices Description No Information Available Encounters Description No Information Available Assessments Date Code Description Provider 02/24/2021 K40.31 Recurrent left inguinal hernia E mounika Rae MD Plan of Treatment 02/24/2021 - Tyson Rae MD* K40.31 Recurrent left inguinal hernia* New Xrays:* CT Abdomen And Pelvis W/O Contrast, Ordered: 02/24/21 * Comments:* Patient has a recurrence after transabdominal [...] further elucidate the anatomy likewise try to pickers material handlers or my mesh is. He does not [...]
--- OUTSIDE RECORDS SUMMARY | 2021-05-16 10:51 | CCD ---
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 Name Role Phone Terrell READ MD Unavailable Unavailable Terrell READ MD Unavailable Unavailable Terrell READ MD Unavailable Unavailable Terrell READ MD Unavailable Unavailable Terrell READ MD Unavailable Unavailable Terrell READ MD Unavailable Unavailable Terrell ERAD MD Unavailable Unavailable Terrell READ MD Unavailable Unavailable Terrell READ MD Unavailable Unavailable Terrell READ MD Unavailable Unavailable Terrell READ MD Unavailable Unavailable Terrell READ MD Unavailable Unavailable Terrell READ MD Unavailable Unavailable Terrell READ MD Unavailable Unavailable Terrell READ MD Unavailable Unavailable Terrell READ MD Unavailable Unavailable Terrell READ MD Unavailable Unavailable Terrell READ MD Unavailable Unavailable Terrell READ MD Unavailable Unavailable Terrell READ MD Unavailable Unavailable Terrell READ MD Unavailable Unavailable Terrell READ MD Unavailable Unavailable Terrell READ MD Unavailable Unavailable Terrell READ MD Unavailable Unavailable Terrell READ MD Unavailable Unavailable Terrell READ MD Unavailable Unavailable Terrell READ MD Unavailable Unavailable BARAYUGA, Terrell COELLO MD Unavailable Unavailable BARAYUGA, Terrell COELLO MD Unavailable Unavailable BARAYUGA, Terrell COELLO MD Unavailable Unavailable BARAYUGA, Terrell COELLO MD Unavailable Unavailable BARAYUGA, Terrell COELLO MD Unavailable Unavailable BARAYUGA, Terrell COELLO MD Unavailable Unavailable BARAYUGA, Terrell COELLO MD Unavailable Unavailable BARAYUGA, Terrell COELLO MD Unavailable Unavailable Cabrera, Debbie Nadine PA-C Unavailable Unavailable Cabrera, Debbie Nadine PA-C Unavailable Unavailable Cabrera, Debbie Nadine PA-C Unavailable Unavailable Cabrera, Debbie Nadine PA-C Unavailable Unavailable Cabrera, Debbie Nadine PA-C Unavailable Unavailable Cabrera, Debbie Nadine PA-C Unavailable Unavailable Cabrera, Debbie Nadine PA-C Unavailable Unavailable Cabrera, Debbie Nadine PA-C Unavailable Unavailable Cabrera, Debbie Nadine PA-C Unavailable Unavailable Cabrera, Debbie Nadine PA-C Unavailable Unavailable Cabrera, Debbie Nadine PA-C Unavailable Unavailable Cabrera, Debbie Nadine PA-C Unavailable Unavailable Cabrera, Debbie Nadine PA-C Unavailable Unavailable Cabrera, Debbie Nadine PA-C Unavailable Unavailable Cabrera, Debbie Nadine PA-C Unavailable Unavailable Cabrera, Debbie Nadine PA-C Unavailable Unavailable Cabrera, Debbie Nadine PA-C Unavailable Unavailable Cabrera, Debbie Nadine PA-C Unavailable Unavailable Cabrera, Debbie Nadine PA-C Unavailable Unavailable Cabrera, Debbie Nadine PA-C Unavailable Unavailable Cabrera, Debbie Nadine PA-C Unavailable Unavailable Cabrera, Debbie Nadine PA-C Unavailable Unavailable Cabrera, Debbie Nadine PA-C Unavailable Unavailable Cabrera, Debbie Nadine PA-C Unavailable Unavailable Cabrera, Debbie Nadine PA-C Unavailable Unavailable Re-disclosure Warning The records that you are about to access may contain information from federally-assisted alcohol or drug abuse programs. If such information is present, then the following federally mandated warning applies: This information has been disclosed to you from records protected by federal confidentiality rules (42 CFR part 2). The federal rules prohibit you from making any further disclosure of this information unless further disclosure is expressly permitted by the written consent of the person to whom it pertains or as otherwise permitted by 42 CFR part 2. A general authorization for the release of medical or other information is NOT sufficient for this purpose. The Federal rules restrict any use of the information to criminally investigate or prosecute any alcohol or drug abuse patient.The records that you are about to access may contain highly sensitive health information, the redisclosure of which is protected by Article 27-F of the [facility] Public Health law. If you continue you may have access to information: Regarding HIV / AIDS; Provided by facilities licensed or operated by the [facility] Office of Mental Health; or Provided by the [facility] Office for People With Developmental Disabilities. If such information is present, then the following [facility] mandated warning applies: This information has been disclosed to you from confidential records which are protected by state law. State law prohibits you from making any further disclosure of this information without the specific written consent of the person to whom it pertains, or as otherwise permitted by law. Any unauthorized further disclosure in violation of state law may result in a fine or skilled nursing sentence or both. A general authorization for the release of medical or other information is NOT sufficient authorization for further disc losure. Family History Family Member Name Family Member Gender Family Member Status Date o f Status Description Data Source(s) Unknown Male Problem [facility] ([facility]) Unknown Female Problem [facility] ([facility]) Unknown Unknown Problem MEDENT ([facility]) Encounters Encounter Providers Location Date Indications Data Source(s ) Outpatient Attender: Nadine Cabrera PA-C 04/27 10:12:28 AM EST - 05/14/2021 11:29:27 AM EST [facility] ([facility] ) Office Visit Attender: MODE Gaytan/Cortney/Awais/ Reinsulema 04/14/2021 03:30:00 PM EDT [facility] ([facility]) Outpatient Attender: MODE Gaytan/Cortney/Awais/ Reindl 03/12/2021 09:45:00 AM EDT MEDENT ([facility]) Outpatient Attender: MODE Gaytan/Cortney/Awais/ Reindl 02/24/2021 09:00:00 AM EDT [facility] ([facility]) Outpatient [facility] [facility] [address] 01/19/2021 12:00:00 AM EDT eCW1 ([facility]) [place] [address] [facility] [address] 01/15/2021 12:00:00 AM EDT eCW1 ([facility]) [place] [address] [facility] [address] 01/14/2021 12:00:00 AM EDT eCW1 ([facility]) [place]patient [address] [facility] [address] 01/13/2021 12:00:00 AM EDT eCW1 ([facility]) [place]patient [address] [facility] [address] 01/12/2021 12:00:00 AM EDT eCW1 ([facility]) [place]patient [address] [facility] [address] 12/23/2020 12:00:00 AM EDT eCW1 ([facility]) [place] [address] [facility] [address] 12/17/2020 12:00:00 AM EDT eCW1 ([facility]) [place] [address] [facility] [address] 07/07/2020 12:00:00 AM EST eCW1 ([facility]) [place]patient [address] [facility] [address] 07/02/2020 12:00:00 AM EST eCW1 ([facility]) Medications Medication Brand Name Start Date Product Form Dose Route Admi nistrative Instructions Pharmacy Instructions Status Indications Reaction Description Data Source(s) Acetaminophen 325 MG / Hydrocodone Bitartrate 5 MG Ora l Tablet Hydrocodone Bitartrate/Acetaminophen 04/03/2021 12:00:00 AM EDT ORAL active MEDENT ([facility], ) Cephalexin 500 MG Oral Capsule Cephalexin 500 MG 01/13/2021 12:00:0 0 AM EDT 1.0 {capsule} active Cephalexin 500 MG eCW1 ([facility]) Cephalexin 500 MG Oral Capsule Cephalexin 500 MG 01/13/2021 12:00:0 0 AM EDT 1.0 {capsule} active Cephalexin 500 MG eCW1 ([facility]) Cephalexin 500 MG Oral Capsule Cephalexin 500 MG 01/13/2021 12:00:0 0 AM EDT 1.0 {capsule} active Cephalexin 500 MG eCW1 ([facility]) Cephalexin 500 MG Oral Capsule Cephalexin 500 MG 01/13/2021 12:00:0 0 AM EDT 1.0 {capsule} active Cephalexin 500 MG eCW1 ([facility]) Cephalexin 500 MG Oral Capsule Cephalexin 500 MG 01/13/2021 12:00:0 0 AM EDT 1.0 {capsule} active Cephalexin 500 MG eCW1 ([facility]) Insurance Providers Payer name Policy type / Coverage type Policy ID Covered republican ID Covered republican's relationship to burrell Policy Burrell Plan Information [id number] MEDICARE [id number] A MEDICARE MEDICARE [id number] Self DEANDRA MARTINEZ MEDIC ARE MEDICARE [id number] SP [id number] [facility] [id number] 5 [facility] (pr) [facility] Part B [id number] Self [id number] [facility] [id number] MEDICARE [id number] SP [id number] [facility] [id number] SP [id number] [place] Medicare Part B [id number] Self [id number] [employer] [id number] Self [id number] ANSI-Medicare Part B [id number] ANSI-Not a Secondary Insurance [id number] ANSI-Not a Secondary Insurance [id number] ANSI-Medicare Part B [id number] ANSI-Not a Secondary Insurance [id number] ANSI-Medicare Part B [id number] GEHA-ASA [id number] SP [id number] [employer] Commercial [id number] Self [id number] ANSI-Not a Secondary Insurance [id number] Ge Commercial [id number] Self [id number] ANSI-Not a Secondary Insurance [id number] MEDICARE [id number] SP [id number] Geha([employer]etna Sig)Asa Commercial [id number] Self [id number] ANSI-Not a Secondary Insurance [id number] ANSI-Not a Secondary Insurance [id number] ANSI-Not a Secondary Insurance [id number] [facility] [id number] SP [id number] ANSI-Not a Secondary Insurance [id number] [facility] -O/P [id number] 18 [id number] [facility] [id number] SP [id number] [facility] O [id number] S [id number] MEDICARE C [id number] S [id number] A [facility] Commercial [id number] Self [id number] GEHA-ASA [id number] SP [id number] GEHA-ASA [id number] SP [id number] GEHA-ASA [id number] SP [id number] MEDICARE C [id number] S [id number] GEHA O [id number] S [id number] GEHA O [id number] S [id number] ANSI-Not a Secondary Insurance [id number] ANSI-Medicare Part B [id number] ANSI-Medicare Part B [id number] ANSI-Not a Secondary Insurance [id number] Problems, Conditions, and Diagnoses No Information Surgeries/Procedures Procedure Description Date Indications Data Source(s) Laparoscopy, Repair Recurrent Inguinal Hernia 04/07/20 12:00:[address] [facility] ([facility]) OFFICE OUTPATIENT VISIT 15 MINUTES 03/12/2021 12:00:[address] [facility] ([facility]) OFFICE OUTPATIENT VISIT 15 MINUTES 02/24/2021 12:00:[address] [facility] ([facility]) Suture Removal 01/19/2021 12:00:00 AM EDT eCW ([facility]) Med: Derm Lidocaine with Epinephrine Inj ection 1% with 2 ml sodium bicarbonate Intradermally to marked areas 01/13/2021 12:00:00 AM EDT eCW ([facility]) Med: Derm 1% Lidocaine with Epinephrine Injection Intr adermally to marked areas 12/17/2020 12:00:00 AM EDT eCW1 ([facility]) Suture Removal 12/17/2020 12:00:00 AM EDT eCW ([facility]) Results ID Date Data Source [id number] 04/07/2021 12:02:[address] [facility] ([facility]) Name Value Range Interpretation Code Description Data Adelina rce(s) Supporting Document(s) Glucose [Mass/volume] in Capillary blood by Glucometer 90 mg/dL 83-110 Normal (applies to non-numeric results) [facility] ([facility] ruth ) ID Date Data Source [id number] 07/04/2020 12:00:00 AM EST [facility] Yulia Galindo Np Patient Name: DEANDRA MARTINEZ[address] Date of : 1945[address] Date of Exam: 07/04/2020SHAWN Wyatt [id number]#: Fax: [phone] EXAM: CT ABDOMEN & PELVIS WITHOUT CONTRASTCLINICAL INFORMATION: Followup left renal hematoma.COMPARISON: 09/09/2019.Low dose [address] scanning of the abdomen and pelvis wasobtained t using 3 mm increments and reconstructed in both sagittal andcoronal scan planes.The left pleural effusion seen previously has resolved. Bibasilar fibroticand or chronic subsegmental atelectatic changes are again suspected. Thereis no pericardial effusion.The large left renal hematoma and significant degree of left perinephricstanding has markedly improved. Minimal perinephric stranding persists.There is a small oval shaped 4.3 x 2.5 x 4.5 cm sized left renalsubcapsular collection, the density of which is much less when compared tothe prior exam. This indicates resolution of the large hematoma withserosanguinous type fluid remaining. Once again, there are nephroliths onthe right which are unchanged and not causing obstructive phenomenon.There is no change in the liver, spleen, pancreas, or adrenal glands. Nofree fluid or free air has developed. The free fluid seen previously in thepelvis has resolved. There is no evidence of an acute bowel abnormality.There is descending colon and sigmoid colon diverticulosis. There is a leftinguinal hernia which contains large bowel. This represents a change fromthe prior exam. There is prostatomegaly and corpora amylacea. Bilateralpelvic phleboliths are again noted status quo.There is no significant change in the appearance of the osseous structures.IMPRESSION:1. Markedly improved left subcapsular renal hematoma as described above andwithout evidence of free fluid.2. Resolved left pleural effusion.3. Unchanged right nephroliths .4. Left inguinal hernia as described above.5. Sigmoid colon diverticulosis.6. Prostatomegaly with corpora amylacea.7. Other findings as described above.Accredited by the [employer] in [place].Catarino Callaway, JOSS/byronmTmiguel you for referring DEANDRA MARTINEZ to our office. Electronically Signed - CATARINO CALLAWAY DO 07/04/20 17:10 Name Value Range Interpretation Code Description Data Adelina rce(s) Supporting Document(s) ID Date Data Source URINE CULTURE 07/03/2020 12:00:00 AM EST eCW1 ([facility]) Name Value Range Interpretation Code Description Data Adelina rce(s) Supporting Document(s) Laboratory studies (set) URINE CULTU RE eCW1 ([facility]) ID Date Data Source UA URINALYSIS 07/03/2020 12:00:00 AM EST eCW1 ([facility]) Name Value Range Interpretation Code Description Data Adelina rce(s) Supporting Document(s) Laboratory studies (set) UA URINALYS IS eCW1 ([facility]) Procedure Social History Code Duration Value Status Description Data Source(s ) Smoking 01/13/2021 12:00:00 AM EDT Former Smoker completed Former Smoker eCW1 ([facility]) Smoking 01/13/2021 12:00:00 AM EDT Former Smoker completed Former Smoker eCW1 ([facility]) Smoking 01/13/2021 12:00:00 AM EDT Former Smoker completed Former Smoker eCW1 ([facility]) Smoking 01/13/2021 12:00:00 AM EDT Former Smoker completed Former Smoker eCW1 ([facility]) Smoking 01/13/2021 12:00:00 AM EDT Former Smoker completed Former Smoker eCW1 ([facility]) Smoking 12/23/2020 12:00:00 AM EDT Former Smoker completed Former Smoker eCW1 ([facility]) Smoking 12/17/2020 12:00:00 AM EDT Former Smoker completed Former Smoker eCW1 ([facility]) Smoking 07/02/2020 12:00:00 AM EST Former Smoker completed Former Smoker eCW1 ([facility]) Smoking 07/02/2020 12:00:00 AM EST Former Smoker completed Former Smoker eCW1 ([facility]) Vital Signs ID Date Data Source UNK Name Value Range Interpretation Code Description Data Source(s) Systolic blood pressure 170 mm[Hg] 170 mm[Hg] [facility] ([facility]) Diastolic blood pressure 80 mm[Hg] 80 mm[Hg] [facility] ([facility]) Body temperature 98.3 [degF] 98.3 [degF] [facility] ([facility]) Body height 72 [in_i] 72 [in_i] [facility] ([facility]) 6'0" Body weight 190.00 [lb_av] 190.00 [lb_av] [facility] T ([facility]) Body mass index (BMI) [Ratio] 25.8 kg/m2 25.8 k g/m2 [facility] ([facility]) [place] body weight 178 [lb_av] 178 [lb_av] [facility] T ([facility]) Body weight 86.[address] [facility] ([facility]) Body surface area Derived from formula 2.[address] [facility] ([facility]) Body weight 88.[address] [facility] ([facility]) Body mass index (BMI) [Ratio] 26.3 kg/m2 26.3 k g/m2 [facility] ([facility]) [place] body weight 178 [lb_av] 178 [lb_av] [facility] T ([facility]) Body surface area Derived from formula 2.[address] [facility] ([facility]) Systolic blood pressure 148 mm[Hg] 148 mm[Hg] [facility] ([facility]) Diastolic blood pressure 74 mm[Hg] 74 mm[Hg[facility] Body temperature 98.5 [degF] 98.5 [degF] [facility] ([facility]) Body height 72 [in_i] 72 [in_i] [facility] ([facility]) 6'0" Body weight 194.25 [lb_av] 194.25 [lb_av] [facility] T ([facility]) Body height 72 [in_i] 72 [in_i] [facility] ([facility]) 6'0" Diastolic blood pressure 73 mm[Hg] 73 mm[Hg] [facility] ([facility]) Heart rate 62 /min 62 /min [facility] ([facility]) Body temperature 97.5 [degF] 97.5 [degF] [facility] ([facility]) Body mass index (BMI) [Ratio] 26.0 kg/m2 26.0 k g/m2 [facility] ([facility]) Systolic blood pressure 165 mm[Hg] 165 mm[Hg] M [facility] ([facility]) Body weight 191.50 [lb_av] 191.50 [lb_av] MEDEN T ([facility]) [place] body weight 178 [lb_av] 178 [lb_av] [facility] Body weight 86.[address] [facility] ([facility]) Body surface area Derived from formula 2.[address] [facility] ([facility]) Body weight 193 [lb_av] 193 [lb_av] eCW1 ([facility]) Body mass index (BMI) [Ratio] 26.17 kg/m2 26.17 kg/m2 eCW1 ([facility]) Systolic blood pressure 140 mm[Hg] 140 mm[Hg] e CW1 ([facility]) Diastolic blood pressure 68 mm[Hg] 68 mm[Hg] eCW1 ([facility]) Body height 72 [in_i] 72 [in_i] eCW1 ([facility]) Heart rate 64 /min 64 /min eCW1 ([facility]) Body weight 193 [lb_av] 193 [lb_av] eCW1 ([facility]) Body height 72 [in_i] 72 [in_i] eCW1 ([facility]) Body mass index (BMI) [Ratio] 26.17 kg/m2 26.17 kg/m2 eCW1 ([facility]) Respiratory rate 18 /min 18 /min eCW1 ([facility]) Body temperature 96.7 [degF] 96.7 [degF] eCW1 ( [facility]) Systolic blood pressure 164 mm[Hg] 164 mm[Hg] e CW1 ([facility]) Diastolic blood pressure 77 mm[Hg] 77 mm[Hg] eCW1 ([facility]) Body weight 193.8 [lb_av] 193.8 [lb_av] eCW1 ([facility]) Body height 72 [in_i] 72 [in_i] eCW1 ([facility]) Body mass index (BMI) [Ratio] 26.28 kg/m2 26.28 kg/m2 eCW1 ([facility]) Systolic blood pressure 128 mm[Hg] 128 mm[Hg] e CW1 ([facility]) Diastolic blood pressure 84 mm[Hg] 84 mm[Hg] eCW1 ([facility]) Body weight 193.6 [lb_av] 193.6 [lb_av] eCW1 ([facility]) Body height 72 [in_i] 72 [in_i] eCW1 ([facility]) Body mass index (BMI) [Ratio] 26.25 kg/m2 26.25 kg/m2 eCW1 ([facility]) Heart rate 58 /min 58 /min eCW1 ([facility]) Respiratory rate 18 /min 18 /min eCW1 ([facility]) Body temperature 97.6 [degF] 97.6 [degF] eCW1 ( [facility]) Systolic blood pressure 130 mm[Hg] 130 mm[Hg] e CW1 ([facility]) Diastolic blood pressure 78 mm[Hg] 78 mm[Hg] eCW1 ([facility]) Patient Treatment Plan of Care Planned Activity Planned Date Details Description Data Source (s) Cephalexin 500 MG Oral Capsule 01/13/2021 12:00:00 AM EDT eCW1 ([facility]) Cephalexin 500 MG Oral Capsule 01/13/2021 12:00:00 AM EDT eCW1 ([facility]) Cephalexin 500 MG Oral Capsule 01/13/2021 12:00:00 AM EDT eCW1 ([facility]) Cephalexin 500 MG Oral Capsule 01/13/2021 12:00:00 AM EDT eCW1 ([facility]) Cephalexin 500 MG Oral Capsule 01/13/2021 12:00:00 AM EDT eCW1 ([facility])
--- OUTSIDE RECORDS SUMMARY | 2021-05-16 10:51 | CCD | Continuity of Care Document ---
Author Author Ravin RAE MD Organization Unknown Address [address] [facility] [address] [place] [address] Phone [phone] Care Team Providers Care Flower Machine Operator Name Role Phone Kalen Zhu M.D. AUTM [phone] Problems Active Problems Provider Date Essential hypertension [...] lb BMI (Body Mass Index) 26.0 kg/m2 [place] Body Weight 178 lb Weight 86.864 kg BSA (Body Surface Area) 2.09 m2 04/04/2019 8:32am BP Systolic 132 mmHg BP Diastolic 80 mmHg Height 72 inches 6'0" Weight 197.38 lb BMI (Body Mass Index) 26.8 kg/m2 [place] Body Weight 178 lb Weight 89.529 kg [...] further elucidate the anatomy likewise try to flower buncher or picker or my mesh is. He does [...]
--- OUTSIDE RECORDS SUMMARY | 2021-05-16 10:51 | CCD | Continuity of Care Document ---
Author Author Ravin RAE MD Organization Unknown Address [address] [facility] [address] [place] [address] Phone [phone] Care Team Providers Care Medical Equipment Sales Name Role Phone Kalen Zhu M.D. AUTM [phone] Problems Active Problems Provider Date Essential hypertension [...] lb BMI (Body Mass Index) 26.0 kg/m2 [place] Body Weight 178 lb Weight 86.864 kg BSA (Body Surface Area) 2.09 m2 04/04/2019 8:32am BP Systolic 132 mmHg BP Diastolic 80 mmHg Height 72 inches 6'0" Weight 197.38 lb BMI (Body Mass Index) 26.8 kg/m2 [place] Body Weight 178 lb Weight 89.529 kg [...] further elucidate the anatomy likewise try to waste picker or my mesh is. He does [...]
[2021-05-16 12:09] LABS: BASO # 0.1 10^3/uL (0.0-0.2); EOS # 0.2 10^3/uL (0.0-0.5); EOS % 1.7 % (0.0-3.0); HEMATOCRIT 39.4 % (42.0-52.0); HEMOGLOBIN 13.3 g/dl (13.5-17.5); LYMPH # 1.3 10^3/uL (1.5-5.0); LYMPH % 10.4 % (24.0-44.0); MEAN CORPUSCULAR HEMOGLOBIN 29.5 pg (27.0-33.0); MEAN CORPUSCULAR HGB CONC 33.8 g/dl (32.0-36.5); MEAN CORPUSCULAR VOLUME 87.4 fl (80.0-96.0); MONO # 0.7 10^3/uL (0.0-0.8); MONO % 5.8 % (2.0-8.0); NEUTROPHILS % 80.7 % (36.0-66.0); PLATELET COUNT, AUTOMATED 142 10^3/uL (150-450); RED BLOOD COUNT 4.51 10^6/uL (4.30-6.10); WHITE BLOOD COUNT 12.4 10^3/uL (4.0-10.0)
--- OUTSIDE RECORDS SUMMARY | 2021-05-16 12:19 | CCD ---
Author Author [facility] Organization [facility] Address Unknown Phone Unavailable Care Team Providers Care Pulmonologist Intensivist Name Role Phone Terrell READ MD Unavailable [...] is protected by Article 27-F of the [place] Public Health law. If you continue you may have access to information: Regarding HIV / AIDS; Provided by facilities licensed or operated by the [facility] Office of Mental Health; or Provided by the [facility] Office for People With Developmental Disabilities. If such information is present, then the following [facility] mandated warning applies: This information has been [...] law may result in a fine or senior care sentence or both. A general authorization for the release of medical or other information is NOT sufficient authorization for further disc losure. Family History Family Member Name Family Member Gender Family Member Status Date o f Status Description Data Source(s) Unknown Male Problem [facility]ENT ([facility]) Unknown Female Problem [facility] Unknown Unknown Problem MEDENT ([facility]) Encounters Encounter Providers Location Date Indications Data Source(s ) Outpatient Attender: Nadine Cabrera PA-C 04/27 10:12:28 AM EST - 05/14/2021 11:29:27 AM EST DocuTap ([facility] ) Office Visit Attender: MODE Gaytan/Cortney/Awais/ Reinsulema 04/14/2021 03:30:00 PM EDT MEDENT ([facility]) Outpatient Attender: MODE Gaytan/Cortney/Awais/ Reindl 03/12/2021 09:45:00 AM EDT MEDENT ([facility]) Outpatient Attender: MODE Gaytan/Cortney/Awais/ Reindl 02/24/2021 09:00:00 AM EDT MEDENT ([facility]) Outpatient [facility] [facility] [address] 01/19/2021 12:00:00 AM EDT eCW1 ([facility]) [place] [address] [facility] [address] 01/15/2021 12:00:00 AM EDT eCW1 ([facility]) [place] [address] [facility] [address] 01/14/2021 12:00:00 AM EDT eCW1 ([facility]) Out[place] [address] [facility] [address] 01/13/2021 12:00:00 AM EDT eCW1 ([facility]) [place] [address] [facility] [address] 01/12/2021 12:00:00 AM EDT eCW1 ([facility]) [place] [address] [facility] [address] 12/23/2020 12:00:00 AM EDT eCW1 ([facility]) Out[place] [address] [facility] [address] 12/17/2020 12:00:00 AM EDT eCW1 ([facility]) [place] [address] [facility] [address] 07/07/2020 12:00:00 AM EST eCW1 ([facility]) Out[place] [address] [facility] [address] 07/02/2020 12:00:00 AM EST eCW1 ([facility]) Medications Medication Brand Name Start Date Product Form Dose Route Admi nistrative Instructions Pharmacy Instructions Status Indications Reaction Description Data Source(s) Acetaminophen 325 MG / Hydrocodone Bitartrate 5 MG Ora l Tablet Hydrocodone Bitartrate/Acetaminophen 04/03/2021 12:00:00 AM EDT ORAL active MEDENT ([facility] ) Cephalexin 500 MG Oral Capsule Cephalexin 500 MG 01/13/2021 12:00:0 0 AM EDT 1.0 {capsule} active Cephalexin 500 MG eCW1 ([facility]) Cephalexin 500 MG Oral Capsule Cephalexin 500 MG 01/13/2021 12:00:0 0 AM EDT 1.0 {capsule} active Cephalexin 500 MG eCW1 ([facility]) Cephalexin 500 MG Oral Capsule Cephalexin 500 MG 01/13/2021 12:00:0 0 AM EDT 1.0 {capsule} active Cephalexin 500 MG eCW1 ([facility]) Cephalexin 500 MG Oral Capsule Cephalexin 500 MG 01/13/2021 12:00:0 0 AM EDT 1.0 {capsule} active Cephalexin 500 MG eCW1 ([facility]) Cephalexin 500 MG Oral Capsule Cephalexin 500 MG 01/13/2021 12:00:0 0 AM EDT 1.0 {capsule} active Cephalexin 500 MG eCW1 ([facility]) Insurance Providers Payer name Policy type / Coverage type Policy ID Covered democrat ID Covered democrat's relationship to burrell Policy Burrell Plan Information [id number] MEDICARE [id number] A MEDICARE MEDICARE [id number] Self DEANDRA MARTINEZ MEDIC ARE MEDICARE [id number] SP [id number] A [facility] [id number] [facility] (pr) [facility] Part B [id number] Self [id number] [facility] [id number] MEDICARE [id number] SP [id number] [facility] [id number] SP [id number] [place] Medicare Part B [id number] Self [id number] [employer] [id number] Self [id number] ANSI-Medicare Part B [id number] ANSI-Not a Secondary Insurance [id number] ANSI-Not a Secondary Insurance [id number] ANSI-Medicare Part B [id number] ANSI-Not a Secondary Insurance [id number] ANSI-Medicare Part B [id number] GEHA-ASA [id number] SP [id number] [employer] Commercial [id number] Self [id number] ANSI-Not a Secondary Insurance [id number] Ge Commercial [id number] Self [id number] ANSI-Not a Secondary Insurance [id number] MEDICARE [id number] SP [id number] Geha([employer] Sig)Asa Commercial [id number] Self [id number] ANSI-Not a Secondary Insurance [id number] ANSI-Not a Secondary Insurance [id number] ANSI-Not a Secondary Insurance [id number] [facility] [id number] SP [id number] ANSI-Not a Secondary Insurance [id number] [facility] -[facility]/P [id number] 18 [id number] [facility] [id number] SP [id number] [facility] O [id number] S [id number] MEDICARE C [id number] S [id number] A [facility] Commercial [id number] Self [id number] GEHA-ASA [id number] SP [id number] GEHA-ASA [id number] SP [id number] GEHA-ASA [id number] SP [id number] MEDICARE C [id number] S [id number] W22 GEHA O [id number] S [id number] GEHA O [id number] S [id number] ANSI-Not a Secondary Insurance [id number] ANSI-Medicare Part B [id number] ANSI-Medicare Part B [id number] ANSI-Not a Secondary Insurance [id number] Problems, Conditions, and Diagnoses No Information Surgeries/Procedures Procedure Description Date Indications Data Source(s) Laparoscopy, Repair Recurrent Inguinal Hernia 04/07/20 12:00:00 AM EDT [facility] ([facility]) OFFICE OUTPATIENT VISIT 15 MINUTES 03/12/2021 12:00:00 AM EDT [facility] ([facility]) OFFICE OUTPATIENT VISIT 15 MINUTES 02/24/2021 12:00:00 AM EDT [facility] ([facility]) Suture Removal 01/19/2021 12:00:00 AM EDT eCW ([facility]) Med: Derm Lidocaine with Epinephrine Inj ection 1% with 2 ml sodium bicarbonate Intradermally to marked areas 01/13/2021 12:00:00 AM EDT eCW ([facility]) Med: Derm 1% Lidocaine with Epinephrine Injection Intr adermally to marked areas 12/17/2020 12:00:00 AM EDT eCW1 ([facility]) Suture Removal 12/17/2020 12:00:00 AM EDT eCW ([facility]) Results ID Date Data Source [id number] 04/07/2021 12:02:00 PM EDT [facility] ([facility]) Name Value Range Interpretation Code Description Data Adelina rce(s) Supporting Document(s) Glucose [Mass/volume] in Capillary blood by Glucometer 90 mg/dL 83-110 Normal (applies to non-numeric results) [facility] ([facility] ) ID Date Data Source [id number] 07/04/2020 12:00:00 AM EST [facility] Yulia Galindo Np Patient Name: DEANDRA MARTINEZ[address] Date of : 1945[address] Date of Exam: 07/04/2020SHAWN Wyatt [id number]#: Fax: [phone] EXAM: CT ABDOMEN & PELVIS [...] Other findings as described above.Accredited by the [employer] in [place].Catarino Callaway, JOSS/byronmTmiguel you for referring DEANDRA MARTINEZ to our office. Electronically Signed - CATARINO CALLAWAY DO 07/04/20 17:10 Name Value Range Interpretation Code Description Data Adelina rce(s) Supporting Document(s) ID Date Data Source URINE CULTURE 07/03/2020 12:00:00 AM EST eCW1 ([facility]) Name Value Range Interpretation Code Description Data Adelina rce(s) Supporting Document(s) Laboratory studies (set) URINE CULTU RE eCW1 ([facility]) ID Date Data Source UA URINALYSIS 07/03/2020 12:00:00 AM EST eCW1 ([facility]) Name Value Range Interpretation Code Description Data Adelina rce(s) Supporting Document(s) Laboratory studies (set) UA URINALYS IS eCW1 ([facility]) Procedure Social History Code Duration Value Status Description Data Source(s ) Smoking 01/13/2021 12:00:00 AM EDT Former Smoker completed Former Smoker eCW1 ([facility]) Smoking 01/13/2021 12:00:00 AM EDT Former Smoker completed Former Smoker eCW1 ([facility]) Smoking 01/13/2021 12:00:00 AM EDT Former Smoker completed Former Smoker eCW1 ([facility]) Smoking 01/13/2021 12:00:00 AM EDT Former Smoker completed Former Smoker eCW1 ([facility]) Smoking 01/13/2021 12:00:00 AM EDT Former Smoker completed Former Smoker eCW1 ([facility]) Smoking 12/23/2020 12:00:00 AM EDT Former Smoker completed Former Smoker eCW1 ([facility]) Smoking 12/17/2020 12:00:00 AM EDT Former Smoker completed Former Smoker eCW1 ([facility]) Smoking 07/02/2020 12:00:00 AM EST Former Smoker completed Former Smoker eCW1 ([facility]) Smoking 07/02/2020 12:00:00 AM EST Former Smoker completed Former Smoker eCW1 ([facility]) Vital Signs ID Date Data Source UNK Name Value Range Interpretation Code Description Data Source(s) Systolic blood pressure 170 mm[Hg] 170 mm[Hg] [facility] ([facility]) Diastolic blood pressure 80 mm[Hg] 80 mm[Hg] [facility] ([facility]) Body temperature 98.3 [degF] 98.3 [degF] [facility] ([facility]) Body height 72 [in_i] 72 [in_i] [facility] ([facility]) 6'0" Body weight 190.00 [lb_av] 190.00 [lb_av] [facility] ([facility]) Body mass index (BMI) [Ratio] 25.8 kg/m2 25.8 k g/m2 [facility] ([facility]) [place] body weight 178 [lb_av] 178 [lb_av] [facility] T ([facility]) Body weight 86.184 kg 86.184 kg [facility] ([facility]) Body surface area Derived from formula 2.08 m2 2.08 m2 [facility] ([facility]) Body mass index (BMI) [Ratio] 26.3 kg/m2 26.3 k g/m2 [facility] ([facility]) Body weight 88.112 kg 88.112 kg [facility] ([facility]) Body surface area Derived from formula 2.10 m2 2.10 m2 [facility] ([facility]) [place] body weight 178 [lb_av] 178 [lb_av] [facility] T ([facility]) Systolic blood pressure 148 mm[Hg] 148 mm[Hg] [facility] ([facility]) Diastolic blood pressure 74 mm[Hg] 74 mm[Hg] [facility] ([facility]) Body temperature 98.5 [degF] 98.5 [degF] [facility] ([facility]) Body height 72 [in_i] 72 [in_i] [facility] ([facility]) 6'0" Body weight 194.25 [lb_av] 194.25 [lb_av] [facility] T ([facility]) Diastolic blood pressure 73 mm[Hg] 73 mm[Hg] [facility] ([facility]) Systolic blood pressure 165 mm[Hg] 165 mm[Hg] [facility] ([facility]) Heart rate 62 /min 62 /min [facility] ([facility]) Body temperature 97.5 [degF] 97.5 [degF] [facility] ([facility]) Body height 72 [in_i] 72 [in_i] [facility] ([facility]) 6'0" Body mass index (BMI) [Ratio] 26.0 kg/m2 26.0 k g/m2 [facility] ([facility]) Body weight 191.50 [lb_av] 191.50 [lb_av] [facility] T ([facility]) [place] body weight 178 [lb_av] 178 [lb_av] [facility] Body weight 86.864 kg 86.864 kg [facility] ([facility]) Body surface area Derived from formula 2.09 m2 2.09 m2 [facility] ([facility]) Body height 72 [in_i] 72 [in_i] eCW1 ([facility]) Body weight 193 [lb_av] 193 [lb_av] eCW1 ([facility]) Body mass index (BMI) [Ratio] 26.17 kg/m2 26.17 kg/m2 eCW1 ([facility]) Systolic blood pressure 140 mm[Hg] 140 mm[Hg] e CW1 ([facility]) Diastolic blood pressure 68 mm[Hg] 68 mm[Hg] eCW1 ([facility]) Heart rate 64 /min 64 /min eCW1 ([facility]) Respiratory rate 18 /min 18 /min eCW1 ([facility]) Body weight 193 [lb_av] 193 [lb_av] eCW1 ([facility]) Body height 72 [in_i] 72 [in_i] eCW1 ([facility]) Body mass index (BMI) [Ratio] 26.17 kg/m2 26.17 kg/m2 eCW1 ([facility]) Body temperature 96.7 [degF] 96.7 [degF] eCW1 ( [facility]) Systolic blood pressure 164 mm[Hg] 164 mm[Hg] e CW1 ([facility]) Diastolic blood pressure 77 mm[Hg] 77 mm[Hg] eCW1 ([facility]) Body weight 193.8 [lb_av] 193.8 [lb_av] eCW1 ([facility]) Body height 72 [in_i] 72 [in_i] eCW1 ([facility]) Body mass index (BMI) [Ratio] 26.28 kg/m2 26.28 kg/m2 eCW1 ([facility]) Systolic blood pressure 128 mm[Hg] 128 mm[Hg] e CW1 ([facility]) Diastolic blood pressure 84 mm[Hg] 84 mm[Hg] eCW1 ([facility]) Body weight 193.6 [lb_av] 193.6 [lb_av] eCW1 ([facility]) Body height 72 [in_i] 72 [in_i] eCW1 ([facility]) Body mass index (BMI) [Ratio] 26.25 kg/m2 26.25 kg/m2 eCW1 ([facility]) Heart rate 58 /min 58 /min eCW1 ([facility]) Respiratory rate 18 /min 18 /min eCW1 ([facility]) Body temperature 97.6 [degF] 97.6 [degF] eCW1 ( [facility]) Systolic blood pressure 130 mm[Hg] 130 mm[Hg] e CW1 ([facility]) Diastolic blood pressure 78 mm[Hg] 78 mm[Hg] eCW1 ([facility]) Patient Treatment Plan of Care Planned Activity Planned Date Details Description Data Source (s) Cephalexin 500 MG Oral Capsule 01/13/2021 12:00:00 AM EDT eCW1 ([facility]) Cephalexin 500 MG Oral Capsule 01/13/2021 12:00:00 AM EDT eCW1 ([facility]) Cephalexin 500 MG Oral Capsule 01/13/2021 12:00:00 AM EDT eCW1 ([facility]) Cephalexin 500 MG Oral Capsule 01/13/2021 12:00:00 AM EDT eCW1 ([facility]) Cephalexin 500 MG Oral Capsule 01/13/2021 12:00:00 AM EDT eCW1 ([facility])
[2021-05-16 12:44] LABS: ALBUMIN 3.1 GM/DL (3.2-5.2); BILIRUBIN,TOTAL 0.8 MG/DL (0.2-1.0); CREATININE FOR GFR 1.49 MG/DL (0.70-1.30); GLOMERULAR FILTRATION RATE 48.8 (>42); POTASSIUM SERUM 4.2 MEQ/L (3.5-5.1); TOTAL PROTEIN 6.5 GM/DL (6.4-8.2)
[2021-05-16 13:36] VITALS: BP 144/73
== END 2021-05-16 13:37 | disposition home or self-care (01) ==
LOC: M ED 10:40
DX: R19.7 Diarrhea, unspecified (principal); E11.9 Type 2 diabetes mellitus without complications; I10 Essential (primary) hypertension; E78.5 Hyperlipidemia, unspecified; Z87.891 Personal history of nicotine dependence; Z91.018 Allergy to other foods; Z79.899 Other long term (current) drug therapy

== ENCOUNTER → 2021-05-17 | Outpatient (REF) | payer MEDICARE, OTHER ==
[~2021-05-17] MED LIST changes: -LEVO500T3 PO; +LEVO500T4 PO; +LOSA25TA13 PO; -LOSA25TA14 PO
== END ==
LOC: M LAB REF 10:00
PROVIDERS: ATTEND Emergency Medicine
DX: R19.7 Diarrhea, unspecified (principal)

== ENCOUNTER 2021-10-29 15:59 | Inpatient (IN) | payer MEDICARE, OTHER ==
[~2021-10-29] VITALS: Ht 182.9 cm; Wt 87.3 kg
[2021-10-29] MEDS ORDERED: hydrALAZINE 20MG/ML 1ML VIAL (J0360 PER 20MG) IV ONE (17:20)
[2021-10-29] MEDS ORDERED: ASPIRIN 81 MG CHEW TABLET PO ONE (17:20)
[2021-10-29 17:59] LABS: BASO # 0.1 10^3/uL (0.0-0.2); BASO % 0.6 % (0.0-1.0); EOS # 0.4 10^3/uL (0.0-0.5); EOS % 3.6 % (0.0-3.0); HEMATOCRIT 39.6 % (42.0-52.0); HEMOGLOBIN 13.1 g/dl (13.5-17.5); LYMPH # 1.8 10^3/uL (1.5-5.0); LYMPH % 18.2 % (24.0-44.0); MEAN CORPUSCULAR HEMOGLOBIN 29.8 pg (27.0-33.0); MEAN CORPUSCULAR HGB CONC 33.1 g/dl (32.0-36.5); MONO # 0.7 10^3/uL (0.0-0.8); MONO % 7.1 % (2.0-8.0); NEUTROPHILS # 6.8 10^3/uL (1.5-8.5); NEUTROPHILS % 70.2 % (36.0-66.0); PLATELET COUNT, AUTOMATED 151 10^3/uL (150-450); WHITE BLOOD COUNT 9.6 10^3/uL (4.0-10.0)
[2021-10-29 18:08] LABS: INR 1.02; PARTIAL THROMBOPLASTIN TIME 29.7 SECONDS (25.9-37.0); PROTHROMBIN TIME 13.8 SECONDS (12.7-14.5)
[2021-10-29 18:11] VITALS: BP 172/88
[2021-10-29 18:19] LABS: CK-MB VALUE MASS 2.2 NG/ML (<3.6); MB/CK RELATIVE INDEX 3.19 (< OR =4)
[2021-10-29 18:25] LABS: CALCIUM LEVEL 9.5 MG/DL (8.8-10.2); CREATININE FOR GFR 1.25 MG/DL (0.70-1.30); GLOMERULAR FILTRATION RATE 59.6 (>42); POTASSIUM SERUM 4.3 MEQ/L (3.5-5.1)
[2021-10-29] MEDS ORDERED: ROSUVASTATIN 10 MG TAB (CRESTOR) PO SCH (21:00)
[2021-10-29 23:01] LABS: RSV AMPLIFICATION NEGATIVE (NEGATIVE)
[2021-10-29] MEDS ORDERED: HOME MED LIST COMPLETE! XX SCH (23:50)
[2021-10-30] MEDS ORDERED: ACETAMINOPHEN TAB 650MG DOSE (2X325MG) PO PRN (00:20)
[2021-10-30] MEDS ORDERED: GLUCAGON INJ 1MG VIAL SC PRN (00:25)
[2021-10-30] MEDS ORDERED: DEXTROSE 50% 50 ML SYRINGE IV PRN (00:25)
[2021-10-30] MEDS ORDERED: GLUCOSE 4GM CHEW TABLET PO PRN (00:25)
[2021-10-30] MEDS ORDERED: hydrALAZINE 20MG/ML 1ML VIAL (J0360 PER 20MG) IV PRN (00:25)
[2021-10-30] MEDS ORDERED: POTASSIUM CITRATE 1080 MG (10MEQ) TAB PO SCH (07:30)
[2021-10-30] MEDS: HumaLOG INSULIN (NovoLOG) PER UNIT SC SCH ×2 (07:30→13:30)
[2021-10-30 08:27] LABS: HEMATOCRIT 41.1 % (42.0-52.0); HEMOGLOBIN 13.8 g/dl (13.5-17.5); MEAN CORPUSCULAR HEMOGLOBIN 29.9 pg (27.0-33.0); MEAN CORPUSCULAR HGB CONC 33.6 g/dl (32.0-36.5); PLATELET COUNT, AUTOMATED 140 10^3/uL (150-450); RED BLOOD COUNT 4.62 10^6/uL (4.30-6.10); WHITE BLOOD COUNT 8.4 10^3/uL (4.0-10.0)
[2021-10-30 08:51] LABS: BLOOD UREA NITROGEN 26 MG/DL (7-18); CALCIUM LEVEL 9.6 MG/DL (8.8-10.2); CARBON DIOXIDE LEVEL 26 MEQ/L (21-32); CHLORIDE LEVEL 106 MEQ/L (98-107); CREATININE FOR GFR 1.12 MG/DL (0.70-1.30); GLOMERULAR FILTRATION RATE > 60.0 (>42); GLUCOSE, FASTING 107 MG/DL (70-100); POTASSIUM SERUM 4.2 MEQ/L (3.5-5.1); SODIUM LEVEL 140 MEQ/L (136-145)
[2021-10-30] MEDS ORDERED: ASPIRIN 81MG ENTERIC TABLET PO SCH (09:00)
[2021-10-30] MEDS ORDERED: LOSARTAN 25 MG TAB PO SCH (09:00)
[2021-10-30] MEDS ORDERED: atenoloL 50 MG TAB PO SCH (09:00)
[2021-10-30] MEDS ORDERED: allopurinoL 100 MG TAB PO SCH (09:00)
[2021-10-30] MEDS ORDERED: MULTIVITAMINS/MINERALS THERAP 1 TAB PO SCH (09:00)
[2021-10-30] MEDS: ENOXAPARIN 40MG/0.4ML SYRINGE (J1650 PER 10MG) SC SCH ×2 (09:53→09:55)
[2021-10-30] MEDS ORDERED: ASPI-1 PO (12:42)
[2021-10-30] MEDS ORDERED: LOSA50TA28 PO (12:44)
[2021-10-30] MEDS ORDERED: LOSARTAN 25 MG TAB PO ONE (12:45)
[2021-10-30 16:30] VITALS: BP 156/88
[2021-10-30] MEDS ORDERED: HumaLOG INSULIN (NovoLOG) PER UNIT SC SCH (21:00)
== END 2021-10-30 19:37 | disposition home or self-care (01) | DRG 69 ==
LOC: EDBD 15:59 → M ED 15:59 → M ED INP 23:56
PROVIDERS: ADMIT Family Medicine; ATTEND Internal Medicine
DX: G45.9 Transient cerebral ischemic attack, unspecified (principal); R47.1 Dysarthria and anarthria; E11.9 Type 2 diabetes mellitus without complications; I10 Essential (primary) hypertension; E78.5 Hyperlipidemia, unspecified; M10.9 Gout, unspecified; Z79.899 Other long term (current) drug therapy; Z79.82 Long term (current) use of aspirin; Z91.018 Allergy to other foods; Z87.891 Personal history of nicotine dependence

== ENCOUNTER → 2022-06-30 | Outpatient (CLI) | payer MEDICARE, OTHER ==
[~2022-06-30] MED LIST changes: +ASPI-1 PO; +LEVO1TAB39 PO; -LEVO500T4 PO; +LOSA50TA28 PO
[2022-06-30 13:39] LABS: BASO # 0.1 10^3/uL (0.0-0.2); BASO % 0.7 % (0.0-1.0); EOS # 0.3 10^3/uL (0.0-0.5); EOS % 3.2 % (0.0-3.0); HEMATOCRIT 43.3 % (42.0-52.0); HEMOGLOBIN 14.2 g/dl (13.5-17.5); LYMPH # 1.4 10^3/uL (1.5-5.0); LYMPH % 16.9 % (24.0-44.0); MEAN CORPUSCULAR HEMOGLOBIN 30.1 pg (27.0-33.0); MEAN CORPUSCULAR HGB CONC 32.8 g/dl (32.0-36.5); MEAN CORPUSCULAR VOLUME 91.9 fl (80.0-96.0); MONO # 0.6 10^3/uL (0.0-0.8); MONO % 7.8 % (2.0-8.0); NEUTROPHILS # 5.8 10^3/uL (1.5-8.5); NEUTROPHILS % 70.9 % (36.0-66.0); PLATELET COUNT, AUTOMATED 158 10^3/uL (150-450); RED BLOOD COUNT 4.71 10^6/uL (4.30-6.10); WHITE BLOOD COUNT 8.2 10^3/uL (4.0-10.0)
[2022-06-30 14:01] LABS: PROSTATIC SPECIFIC AG MONITOR 3.75 NG/ML (< 4.00)
[2022-06-30 14:10] LABS: ALBUMIN 3.7 G/DL (3.2-5.2); BILIRUBIN,TOTAL 1.5 MG/DL (0.3-1.2); CALCIUM LEVEL 9.4 MG/DL (8.3-10.6); CHOLESTEROL RISK RATIO 2.43 (<5); CREATININE FOR GFR 1.38 MG/DL (0.70-1.30); GLOMERULAR FILTRATION RATE 53.2 (>42); HDL CHOLESTEROL 33.7 MG/DL (>40); LDL CHOLESTEROL 29.3 MG/DL (<100); POTASSIUM SERUM 4.7 MMOL/L (3.5-5.1); TOTAL PROTEIN 7.1 G/DL (5.7-8.2)
[2022-06-30 14:41] LABS: HEMOGLOBIN A1c 5.4 % (4.0-6.0)
== END ==
LOC: M LABDRWAD 09:59
PROVIDERS: ATTEND Family Medicine
DX: I10 Essential (primary) hypertension (principal); R97.20 Elevated prostate specific antigen [PSA]; E11.9 Type 2 diabetes mellitus without complications

== ENCOUNTER → 2022-07-12 | Outpatient (CLI) | payer MEDICARE, OTHER | LOC: M ADAMS 10:37 | PROVIDERS: ATTEND Urology | DX: N20.0 Calculus of kidney (principal) ==

== ENCOUNTER → 2023-08-09 | Outpatient (CLI) | payer MEDICARE, OTHER | LOC: M PLAIMG 11:01 | PROVIDERS: ATTEND Urology | DX: N20.0 Calculus of kidney (principal) | CPT/HCPCS: 74018; G0463 ==

== ENCOUNTER → 2024-07-31 | Outpatient (CLI) | payer MEDICARE ==
[~2024-07-31] MED LIST changes: +GABA-1172 PO; -GABA-282 PO; +PIPE3.3729 IV; +POTA10807 PO; -POTA10808 PO; -ROSU40TA4 PO; +ROSU40TA81 PO; -ZOSY1SOL5 IV
== END ==
LOC: M ADAMS 14:35
PROVIDERS: ATTEND Urology
DX: N20.0 Calculus of kidney (principal)

== ENCOUNTER → 2024-08-03 | Outpatient (CLI) | payer MEDICARE | LOC: M ADAMS 09:39 | PROVIDERS: ATTEND Family Medicine | DX: M54.9 Dorsalgia, unspecified (principal); M47.816 Spondylosis without myelopathy or radiculopathy, lumbar region; M47.817 Spondylosis without myelopathy or radiculopathy, lumbosacral region; M47.814 Spondylosis without myelopathy or radiculopathy, thoracic region ==

== ENCOUNTER → 2024-10-05 | Outpatient (CLI) | payer MEDICARE, OTHER | LOC: M RAD 09:58 | PROVIDERS: ATTEND Internal Medicine | DX: N18.30 Chronic kidney disease, stage 3 unspecified (principal) ==

== ENCOUNTER → 2025-05-29 | Outpatient (REF) | payer OTHER ==
[~2025-05-29] MED LIST changes: -FLOM0.4C39 PO; +TAMS-18 PO
[2025-05-29 18:19] LABS: TOTAL PROTEIN,RANDOM URINE 8.9 MG/DL (0.0-14.0)
== END ==
LOC: M LAB REF 17:11
PROVIDERS: ATTEND Internal Medicine Nephrology
DX: N18.31 Chronic kidney disease, stage 3a (principal)